=== PATIENT | male | born 1935 | race Caucasian/White ===

== ENCOUNTER 2017-04-15 11:33 | Day surgery (SDC) | payer MEDICARE ==
[2017-04-15] VITALS (9 sets, daily range): BP systolic 145–180; BP diastolic 87–116
[~2017-04-15] VITALS: Ht 175.3 cm; Wt 35.1 kg
[~2017-04-15 11:33] MED LIST: DILT240C PO; DOXY50CA6 PO; GLIP5TAB26 PO; LOVA20TA2 PO; WRF5T PO
--- OUTSIDE RECORDS SUMMARY | 2017-04-15 11:36 | XMS REPORT | Continuity of Care Document ---
Author Author [facility] Organization [facility] Address Unknown Phone Unavailable Allergies Active Description Code Type Severity Reaction Onset Reported/Identified Relationship to Patient Clinical Status Yes NKANo Known Allergies NKA Miscellaneous Allergy Unknown N/ A 06/02/2006 Medications Problems Date Dx Coded Attending Type Code Diagnosis Diagnosed By 05/13/2010 Ot 250.00 05/13/2010 Ot 272.4 05/13/2010 Ot 414.01 05/13/2010 Ot 414.10 05/13/2010 Ot 427.31 05/13/2010 Ot V58.61 05/13/2010 Ot V58.69 07/24/2014 CHRISTIAN RUIZ DO Ot 362.34 08/05/2014 CHRISTIAN RUIZ DO Ot 362.34 08/28/2014 FRITZ GARCIA USPS LETTER CARRIER Ot 272.4 08/28/2014 FRITZ GARCIA USPS LETTER CARRIER Ot 414.00 08/28/2014 FRITZ GARCIA USPS LETTER CARRIER Ot 427.32 06/24/2015 DANIELA BUCKNER FACC, SURYA FACP CCDS Ot E11.9 06/24/2015 DANIELA BUCKNER FACC, SURYA FACP CCDS Ot E78.5 06/24/2015 DANIELA BUCKNER FACC, SURYA FACP CCDS Ot I25.10 06/24/2015 DANIELA BUCKNER FACC, ALI FACP CCDS Ot I48.92 06/24/2015 DANIELA BUCKNER FACC, ALI FACP CCDS Ot I65.29 06/24/2015 DANIELA BUCKNER FACC, ALI FACP CCDS Ot R42 06/24/2015 DANIELA BUCKNER FACC, ALI FACP CCDS Ot Z79.01 07/01/2015 DANIELA BUCKNER FACC, ALI FACP CCDS Ot E11.9 07/01/2015 DANIELA BUCKNER FACC, ALI FACP CCDS Ot E78.5 07/01/2015 DANIELA BUCKNER FACC, SURYA FACP CCDS Ot I25.10 07/01/2015 DANIELA MD FACC, ALI FACP CCDS Ot I48.92 07/01/2015 DANIELA BUCKNER FACC, ALI FACP CCDS Ot I65.29 07/01/2015 DANIELA BUCKNER FACC, ALI FACP CCDS Ot R42 07/01/2015 DANIELA BUCKNER FACC, ALI FACP CCDS Ot Z79.01 08/26/2015 CHRISTIAN RUIZ DO Ot 362.34 08/26/2015 FRITZ GARCIA USPS LETTER CARRIER Ot 272.4 08/26/2015 FRITZ GARCIA USPS LETTER CARRIER Ot 414.00 08/26/2015 FRITZ GARCIA USPS LETTER CARRIER Ot 427.32 08/26/2015 DANIELA BUCKNER FACC, ALI FACP CCDS Ot E11.9 08/26/2015 DANIELA BUCKNER FACC, ALI FACP CCDS Ot E78.5 08/26/2015 DANIELA BUCKNER FACC, ALI FACP CCDS Ot I25.10 08/26/2015 DANIELA REDDYC, ALI FACP CCDS Ot I48.92 08/26/2015 DANIELA REDDYC, ALI FACP CCDS Ot I65.29 08/26/2015 DANIELA REDDYC, ALI FACP CCDS Ot R42 08/26/2015 DANIELA REDDYC, ALI FACP CCDS Ot Z79.01 08/26/2015 Ot 397.0 08/26/2015 Ot 414.10 08/26/2015 Ot 424.0 08/26/2015 Ot 427.32 08/26/2015 CHRISTIAN RUIZ DO Ot 362.34 08/26/2015 FRITZ GARCIA USPS LETTER CARRIER Ot 272.4 08/26/2015 FRITZ GARCIA USPS LETTER CARRIER Ot 414.00 08/26/2015 FRITZ GARCIA USPS LETTER CARRIER Ot 427.32 08/26/2015 DANIELA BUCKNER FACC, ALI FACP CCDS Ot E11.9 08/26/2015 DANIELA BUCKNER FACC, ALI FACP CCDS Ot E78.5 08/26/2015 DANIELA BUCKNER FACC, ALI FACP CCDS Ot I25.10 08/26/2015 DANIELA BUCKNER FACC, ALI FACP CCDS Ot I48.92 08/26/2015 DANIELA BUCKNER FACC, ALI FACP CCDS Ot I65.29 08/26/2015 SURYA SUAREZ MD, FACC, FACP CCDS Ot R42 08/26/2015 SURYA SUAREZ MD, FACC, FACP CCDS Ot Z79.01 09/18/2015 CHRISTIAN RUIZ DO Ot R31.0 09/25/2015 CHRISTIAN RUIZ DO Ot R31.0 Procedures Results Encounters ACCT No. Visit Date/Time Discharge Status Pt. Type Provider Facility Loc./Unit Complaint [id number] 08/26/2015 15:01:00 2014 23:59:59 CLS Outpatient CHRISTIAN RUIZ DO [facility] RAD [id number] 06/03/2015 10:24:00 2014 23:59:59 CLS Outpatient SURYA SUAREZ MD, FACC, FACP CCDS [facility] CARD [id number] 07/29/2014 08:27:00 2013 23:59:59 CLS Outpatient FRITZ GARCIA [facility] CARD [id number] 06/26/2014 15:10:00 2013 23:59:59 CLS Outpatient CHRISTIAN RUIZ DO [facility] RAD [id number] 05/12/2010 10:58:00 Document Registration [id number] 04/27/2010 10:16:00 Document Registration
--- OUTSIDE RECORDS SUMMARY | 2017-04-15 11:36 | XMS REPORT | Clinical Summary ---
Author Author [facility] Organization [facility] Address Unknown Phone Unavailable Care Team Providers Care Parcel Wrapper Name Role Phone PCP Unavailable Source Comments Some departments are not documenting in the electronic medical record. If you do not see the information that you expected, contact Release of Information in the Health Information Management department at [phone] for further assistance in locating additional records.[facility] Allergies No Known Allergies Current Medications Prescription Sig. Disp. Refills Start End Date Status Date glipiZIDE (GLUCOTROL) 5 Take 5 mg by mouth daily. Active mg tabletIndications: Atrial flutter, unspecified, Hyperlipidemia, Coronary artery disease involving [place] coronary artery of [place] heart without angina pectoris warfarin (JANTOVEN) 5 mg Take 2.5 mg by mouth. Active tabletIndications: Atrial Take 5 mg tablet on flutter, unspecified, Mon,Wend, & Fri; then Hyperlipidemia, Coronary take 2.5mg tablet on artery disease involving Tues, Thru, Sat, and Sun. [place] coronary artery of [place] heart without angina pectoris lovastatin(+) (MEVACOR) Take 20 mg by mouth Active 20 mg tabletIndications: daily. Atrial flutter, unspecified, Hyperlipidemia, Coronary artery disease involving [place] coronary artery of [place] heart without angina pectoris cholecalciferol (VITAMIN Take 1,000 Units by mouth Active D-3) 1,000 units twice daily. tabletIndications: Atrial flutter, unspecified, Hyperlipidemia, Coronary artery disease involving [place] coronary artery of [place] heart without angina pectoris DOCOSAHEXANOIC ACID/EPA Take 1,200 mg by mouth Active (FISH OIL PO)Indications: twice daily. Atrial flutter, unspecified, Hyperlipidemia, Coronary artery disease involving [place] coronary artery of [place] heart without angina pectoris BIOTIN PO Take 5,000 mcg by mouth Active daily. DOXYCYCLINE CALCIUM PO Take 25 mg by mouth Active daily. lisinopril (PRINIVIL; Take 1 Tab by mouth 90 Tab 3 09/29/19 Active ZESTRIL) 10 mg tablet daily. 17 metoprolol XL (TOPROL XL) Take 0.5 Tabs by mouth 30 Tab 3 11/09/19 Active 25 mg extended release daily. 17 tabletIndications: Hyperlipidemia, unspecified hyperlipidemia type, Coronary artery disease involving [place] coronary artery of [place] heart without angina pectoris, Paroxysmal atrial flutter (HCC), Nonischemic cardiomyopathy (HCC) Active Problems Problem Noted Date Paroxysmal a-fib ([facility]) 07/15/2015 CAD (coronary artery disease), mild non-obstructive 07/07/2015 Overview: 02/06/15: LHC: Abnormal heart cath with markedly abnormal LV with severe global hypokinesis. EF 10%. Mild proximal severe cardiomyopathy is considered nonischemic. 30% stenosis in the proximal right coronary artery. Type II diabetes mellitus ([facility]) 07/07/2015 Hyperlipidemia 07/07/2015 Nonischemic cardiomyopathy (HCC) 07/07/2015 Bilateral carotid artery disease ([facility]) 07/07/2015 Overview: 05/20/15: Carotid duplex: Mild Resolved Problems Problem Noted Date Resolved Date Atrial flutter (HCC) 07/14/2015 07/15/2015 Paroxysmal atrial flutter (HCC) 07/07/2015 07/15/2015 Overview: 06/03/15: Holter: Atrial flutter on holter average HR 99, range 69-125. 04/27/10: Echo: LA size 3.9cm. Normal LV function. EF 55-60%. PA pressure 50mmHg. Mild MR and TR. Dizziness 07/07/2015 07/14/2015 Social History Tobacco Use Types Packs/Day Years Used Date Never Assessed Sex Assigned at Date Recorded Not on file Last Filed Vital Signs Vital Sign Reading Time Taken Blood Pressure 136/72 09/27/2016 1:01 PM MOLDING MACHINE SETTER Pulse 56 09/27/2016 12:45 PM MOLDING MACHINE SETTER Temperature 36.6 C (97.8 F) 07/15/2015 12:45 PM MOLDING MACHINE SETTER Respiratory Rate - - Oxygen Saturation 98% 07/15/2015 12:45 PM MOLDING MACHINE SETTER Inhaled Oxygen - - Concentration Weight 74.4 kg (164 lb) 09/27/2016 12:45 PM MOLDING MACHINE SETTER Height 175.3 cm (5' 9") 09/27/2016 12:45 PM MOLDING MACHINE SETTER Body Mass Index 24.22 09/27/2016 12:45 PM MOLDING MACHINE SETTER Plan of Treatment Health Maintenance Due Date Last Done Comments PHYSICAL (COMPREHENSIVE) 1942 EXAM PERTUSSIS VACCINE 1946 TETANUS VACCINE 1952 DILATED EYE EXAM 1953 FOOT EXAM 1953 HBA1C 1953 MICROALBUMIN 1953 SHINGLES VACCINE 1995 PREVNAR/PNEUMOVAX (#1) 2000 INFLUENZA VACCINE 04/29/2017 Results Not on filefrom Last 3 Months
[2017-04-15] MEDS ORDERED: HEParin (CATH LAB) 1,000 ML IV ONE (11:41)
[2017-04-15] MEDS ORDERED: NS IV 1000 ML 1,000 ML IV ONE (11:44)
[2017-04-15] MEDS ORDERED: BACITRACIN INJECTION 50,000 UNIT, SODIUM CHLORIDE 0.9% IRRIGATIO 500 ML IR ONE ×2 (11:45)
[2017-04-15 12:09] LABS: MEAN PLATELET VOLUME 8.5 FL (7.4-10.4); RED BLOOD COUNT 5.11 10^6/uL (4.35-5.85); RED CELL DISTRIBUTION WIDTH 13.7 % (10.0-14.5); WHITE BLOOD COUNT 6.3 10^3/uL (4.3-11.0)
[2017-04-15 12:18] LABS: INR 1.4 (0.8-1.4); PROTHROMBIN TIME PATIENT 17.4 SEC (12.2-14.7)
[2017-04-15 12:29] LABS: ALANINE AMINOTRANSFERASE 19 U/L (0-55); ALBUMIN 4.2 GM/DL (3.2-4.5); ANION GAP 10 MMOL/L (5-14); ASPARTATE AMINO TRANSFERASE 22 U/L (5-34); BLOOD UREA NITROGEN 14 MG/DL (7-18); BUN/CREATININE RATIO 16; CALCIUM 9.3 MG/DL (8.5-10.1); CARBON DIOXIDE 23 MMOL/L (21-32); CHLORIDE 107 MMOL/L (98-107); CHOLESTEROL 165 MG/DL (< 200); CREATININE SERUM 0.87 MG/DL (0.60-1.30); DIRECT LDL 94 MG/DL (1-129); GFR ESTIMATED > 60; GLUCOSE 96 MG/DL (70-105); POTASSIUM 4.2 MMOL/L (3.6-5.0); SODIUM 140 MMOL/L (135-145); TOTAL PROTEIN 7.2 GM/DL (6.4-8.2); TRIGLYCERIDES 85 MG/DL (<150); VLDL CHOLESTEROL 17 MG/DL (5-40)
[2017-04-15] MEDS ORDERED: METO-270 PO (12:45)
[2017-04-15] MEDS ORDERED: BIOT5000 PO (12:45)
[2017-04-15] MEDS ORDERED: WARF5TAB8 PO ×2 (12:45)
[2017-04-15] MEDS ORDERED: ASPI-983 PO (12:45)
[2017-04-15] MEDS ORDERED: CYAN10006 PO (12:45)
[2017-04-15] MEDS ORDERED: LISI10TA2 PO (12:45)
[2017-04-15] MEDS ORDERED: OMEG-109 PO (12:46)
[2017-04-15] MEDS ORDERED: CHOL10007 PO (12:47)
[2017-04-15] MEDS ORDERED: fentaNYL INJECTION 100 MCG/2 ML AMP ONE (12:51)
[2017-04-15] MEDS ORDERED: diphenhydrAMINE 50 MG/ML INJ (BENADRYL) ONE (12:51)
[2017-04-15] MEDS ORDERED: MIDAZOLAM 5 MG/5 ML (VERSED) VIAL ONE (12:51)
[2017-04-15] MEDS ORDERED: ceFAZolin 1,000 MG (ANCEF) VIAL ONE (13:10)
[2017-04-15] MEDS ORDERED: NEO/POLY/BAC (NEOSPORIN) OINT 15 GM TUBE ONE (14:38)
[2017-04-15] MEDS ORDERED: NS IV 1000 ML 1,000 ML IV SCH (15:03)
--- NOTE | 2017-04-15 15:03 | Cardiac Procedure Note-CS/ASA ---
Pre-Procedure Note Pre-Op Procedure Note H&P Reviewed The H&P was reviewed, patient examined and no changes noted. Date H&P Reviewed: Apr 15, 2017 Time H&P Reviewed: 13:30 Conscious Sedation Pre-Proced Time Reviewed: 13:30 ASA Class: 3 Airway Mallampati Classification: ([place] ira appropriate class) I. II. III, IV Lungs Heart ASA score ASA 1: a normal healthy patient ASA 2: a patient with a mild systemic disease (mid diabetes, controlled hypertension, obesity ASA 3: a patient with a severe systemic disease that limits activity (angina , COPD, prior Myocardial infarction) ASA 4: a patient with an incapacitating disease that is a constant threat to life (CHF, renal failure) ASA 5: a moribund patient not expected to survive 24 hrs. (ruptured aneurysm) ASA 6: a declared brain patient whose organs are being harvested. For emergent operations, add the letter E after the classification Grade 2 Sedation Plan: Analgesia, Amnesia, Plan communicated to team members, Discussed options with patient/fam, Discussed risks with patient/fam Note The patient is an appropriate candidate to undergo the planned procedure, sedation, and anesthesia. The patient immediately re-assessed prior to indication. SURYA SUAREZ MD FACP FAC CCDS Apr 15, 2017 15:03
[2017-04-15] MEDS ORDERED: ACETAMINOPHEN 325 MG TABLET/CAPLET (TYLENOL) PO PRN (15:15)
[2017-04-15] MEDS ORDERED: PATIENT MAY USE OWN MEDS, ALL PO SCH (15:15)
--- NOTE | 2017-04-15 18:01 | Diagnostic Imaging Report ---
INDICATION: Chest pain. EXAMINATION: PA and lateral chest. FINDINGS: Patient has a left subclavian dual chamber pacemaker with leads projecting over the right atrium and right ventricle. Lungs are clear. There are no effusions or pneumothoraces. Heart size and pulmonary vascularity are normal. IMPRESSION: No acute abnormalities in the chest. Dictated by: Dictated on workstation # [id number]
[2017-04-15] MEDS: VITAMIN D3 1,000 UNITS (CHOLECALCIFEROL) TABLET PO SCH (20:42)
[2017-04-15] MEDS ORDERED: SIMvastatin 10 MG (ZOCOR) TAB PO SCH (21:00)
[2017-04-15] MEDS ORDERED: NON-FORMULARY MEDICATION 1 EA EA (Lovastatin (Lovastatin 20 Mg) 20 MG) PO SCH (21:00)
[2017-04-15] MEDS ORDERED: NON-FORMULARY MEDICATION 1 EA EA (Cholecalciferol (Vitamin D3) (Vitamin D3) 1,000 UNIT) PO SCH (21:00)
[2017-04-15] MEDS: ceFAZolin INJECTION 1,000 MG in NS (IVPB) 50 ML IV SCH (22:29)
[2017-04-16] VITALS (10 sets, daily range): BP systolic 124–162; BP diastolic 76–99
--- NOTE | 2017-04-16 03:09 | OPERATIVE REPORT ---
DATE OF SERVICE: 04/15/2017 PREOPERATIVE DIAGNOSIS: 1. Symptomatic bradycardia. 2. Episodes of ventricular asystole of up to 5.2 seconds during awake hours. POSTOPERATIVE DIAGNOSIS: 1. Symptomatic bradycardia. 2. Episodes of ventricular asystole of up to 5.2 seconds during awake hours. PROCEDURE: Dual chamber pacemaker implantation. ESTIMATED BLOOD LOSS: Approximately 25 mL. The patient is an 81-year-old man with symptoms of near syncope who was demonstrated to have pauses of up to 5.2 seconds on ambulatory cardiac monitoring. Pacemaker implantation was carried out today after having obtained an informed consent. He was brought to the cardiac catheterization laboratory in a fasting state. The left prepectoral area was prepared and draped in the usual sterile fashion. Lidocaine 1% was used for local anesthesia. Modified Seldinger technique was used to advance 2 guidewires into the left subclavian veins with the tips of the wires advanced to the right atrium. Subsequently, sharp and blunt dissection was used to make a pacemaker pocket and pretty good hemostasis was assured. The pocket was packed with gauze soaked in an antibiotic solution. We then used the wires advance the sheaths and sheaths were advanced leads after the guidewires were removed. After the leads had been put in place, the sheaths were removed and the sheaths were sutured to the prepectoral fascia using 0 Ethibond. All lead manipulations were carried out under fluoroscopy. The right ventricular lead is attached at the right ventricular outflow tract/high septum. This was confirmed on [place] views. Good sensing and catheter thresholds were obtained. The R-wave was measured at 8.9 mV with a pacing impedance of 760 ohms and a catheter threshold of 0.6 volts at 0.4 msec. The tip of the right atrial lead is at the right atrial appendage. The P-waves are sensed at 5 mV. Pacing impedance is 507 ohms. Capture threshold is 0.6 volts at 0.4 msec. Both leads are active fixation leads. The right atrial lead is Biotronik model 317723 with serial #[id number]. The right ventricular lead is a Biotronik model 828364 with serial #[id number]. The device is Biotronik model 805701 with serial #[id number]. The pacemaker pocket was thoroughly irrigated with an antibiotic solution after the antibiotic soaked gauze had been removed. We then injected 10 mL of D-Stat Flowable in the pocket to further achieve hemostasis. The lead and the pacemaker were placed in the pocket and the pocket was closed in 2 layers using 3.0 Vicryl. He tolerated the procedure well. Job ID: [id number] DocumentID: [id number] Dictated Date: 04/15/2017 14:55:08 Clinical Engineering Director Date: 04/16/2017 00:01:29 Dictated By: SURYA SUAREZ MD, MA, FACP, FACC, MTDD
[2017-04-16 04:29] LABS: MEAN PLATELET VOLUME 8.6 FL (7.4-10.4); RED BLOOD COUNT 4.75 10^6/uL (4.35-5.85); RED CELL DISTRIBUTION WIDTH 13.6 % (10.0-14.5); WHITE BLOOD COUNT 8.6 10^3/uL (4.3-11.0)
[2017-04-16 05:02] LABS: ALANINE AMINOTRANSFERASE 14 U/L (0-55); ALBUMIN 3.6 GM/DL (3.2-4.5); ANION GAP 8 MMOL/L (5-14); ASPARTATE AMINO TRANSFERASE 19 U/L (5-34); BILIRUBIN,TOTAL 0.9 MG/DL (0.1-1.0); BLOOD UREA NITROGEN 15 MG/DL (7-18); BUN/CREATININE RATIO 17; CALCIUM 8.7 MG/DL (8.5-10.1); CARBON DIOXIDE 25 MMOL/L (21-32); CHLORIDE 104 MMOL/L (98-107); CREATININE SERUM 0.89 MG/DL (0.60-1.30); GFR ESTIMATED > 60; GLUCOSE 133 MG/DL (70-105); POTASSIUM 4.3 MMOL/L (3.6-5.0); SODIUM 137 MMOL/L (135-145); TOTAL PROTEIN 6.2 GM/DL (6.4-8.2)
[2017-04-16] MEDS: ceFAZolin INJECTION 1,000 MG in NS (IVPB) 50 ML IV SCH (05:43)
[2017-04-16] MEDS ORDERED: glipiZIDE XL 5 MG (GLUCOTROL XL) TAB PO SCH (07:00)
[2017-04-16] MEDS: VITAMIN D3 1,000 UNITS (CHOLECALCIFEROL) TABLET PO SCH (08:29)
[2017-04-16] MEDS ORDERED: CYANOCOBALAMIN 500 MCG TAB (VITAMIN B-12) PO SCH (09:00)
[2017-04-16] MEDS ORDERED: NON-FORMULARY MEDICATION 1 EA EA (Cyanocobalamin (Vitamin B-12) (Vitamin B-12) 1,000 MCG) PO SCH (09:00)
[2017-04-16] MEDS ORDERED: lisINopril 10 MG (PRINIVIL) TAB PO SCH (09:00)
[2017-04-16] MEDS ORDERED: NON-FORMULARY MEDICATION 1 EA EA (Biotin 5,000 MCG) PO SCH (09:00)
--- NOTE | 2017-04-16 12:57 | Progress Note-Cardiology ---
Cardiology SOAP Progress Note Subjective: No cp or palp or syncope or shortness of breath. Wishes to go home Objective: I&O/Vital Signs Vital Sign - Last 12Hours 04/16/17 04/16/17 04/16/17 04/16/17 01:00 01:00 02:00 03:00 Pulse 65 63 66 64 Resp 19 19 9 B/P (MAP) 161/95 143/91 162/95 Pulse Ox 97 96 97 O2 Delivery Room Air Room Air Room Air 04/16/17 04/16/17 04/16/17 04/16/17 04:00 07:00 08:00 11:35 Pulse 80 Pulse Ox 97 95 95 O2 Delivery Room Air Room Air Room Air Weight (Pounds): 77 Weight (Ounces): 5.0 Weight (Calculated Kilograms): 35.757611 Device Insertion Site: without hematoma Bruising: moderated bruising Constitutional: AAO x 3, well-developed, well-nourished Respiratory: No accessory muscle use, other (good bilateral air entry, no rales or wheezes) Cardiovascular: regular rate-rhythm, S1 and S2, systolic murmur (faint STIVEN at cardiac base) Gastrointestional: No tender, soft, No guarding, No rebound, audible bowel sounds Extremities: No clubbing, No cyanosis, No significant edema Neurologic/Psychiatric: grossly intact, power is 5/5 both on sides Skin: No rash on exposed areas, No ulcerations on exposed areas Results/Procedures: Labs Laboratory Tests 04/15/17 16:33: Glucometer 78 04/16/17 03:38: White Blood Count 8.6, Red Blood Count 4.75, Hemoglobin 15.8, Hematocrit 45, Mean Corpuscular Volume 95, Mean Corpuscular Hemoglobin 33, Mean Corpuscular Hemoglobin Concent 35, Red Cell Distribution Width 13.6, Platelet Count 129L, Mean Platelet Volume 8.6, Sodium Level 137, Potassium Level 4.3, Chloride Level 104, Carbon Dioxide Level 25, Anion Gap 8, Blood Urea Nitrogen 15, Creatinine 0.89, Estimat Glomerular Filtration Rate > 60, BUN/Creatinine Ratio 17, Glucose Level 133H, Calcium Level 8.7, Total Bilirubin 0.9, Aspartate Amino Transf (AST/ SGOT) 19, Alanine Aminotransferase (ALT/SGPT) 14, Alkaline Phosphatase 47, Total Protein 6.2L, Albumin 3.6 Laboratory Tests 04/15/17 11:59 04/16/17 03:38 A/P: Assessment: S/p dual chamber permanent (MRI compatible) pacemaker implantation on 04/15/17 for symptomatic sinus node dysfunction, functioning normally on interrogation or 04/16/17 Symptomatic sinus node dysfunction. Amb card monitoring of 03/23-04/06/17 shows PSVT/PAF and also episodes of vent asystolic pauses of up to 5.2 seconds. The longest pause occurred when he was awake Angiographically mild coronary artery disease on cardiac catheterization of April 2010. History of paroxysmal atrial flutter for which he has undergone successful ablation with Dr Nicole in Jun 2015 Chronic anticoagulation for stroke prophylaxis being followed by Dr. Hughes. Hyperlipidemia, being treated with lovastatin and being followed by Dr. Hughes. Maturity onset diabetes mellitus. Mild bilateral carotid arterial disease per carotid ultrasound of 05/20/15 Plan: * I spoke with him and his in detail and provided postop instructions and answered questions * Have advised outpatient f/u * Resume previous home meds * Oral antibiotics x 4 days SURYA SUAREZ MD FACP FAC CCDS Apr 16, 2017 12:57
[2017-04-16] MEDS ORDERED: CEFU250T80 PO (13:01)
--- NOTE | 2017-04-16 13:03 | Discharge Inst-Cardiology ---
Discharge Inst-Cardiac Discharge Medications New Medications: Cefuroxime Axetil (Cefuroxime) 250 Mg Tablet 250 MG PO BID, #8 TAB Continued Medications: Aspirin (Aspirin EC) 81 Mg Tablet.dr 81 MG PO DAILY, TAB Biotin (Biotin) 5,000 Mcg Tab.rapdis 5000 MCG PO DAILY, TAB Cholecalciferol (Vitamin D3) (Vitamin D3) 1,000 Unit Capsule 1000 UNIT PO BID, CAP Cyanocobalamin (Vitamin B-12) (Vitamin B-12) 1,000 Mcg Tablet 1000 MCG PO DAILY, TAB Glipizide (Glipizide Xl) 5 Mg Tab.osm.24 5 MG PO DAILY Lisinopril (Lisinopril) 10 Mg Tablet 10 MG PO DAILY, TAB Lovastatin (Lovastatin 20 Mg) 20 Mg Tablet 20 MG PO HS Metoprolol Succinate (Metoprolol Succinate) 25 Mg Tab.er.24h 12.5 MG PO DAILY, TAB TAKES 1/2 OF A (25 MG) TABLET [place]-3 Fatty Acids/Fish Oil (Fish Oil 1,200 mg Softgel) 1 Each Capsule 1200 MG PO BID, CAP Warfarin Sodium (Jantoven) 5 Mg Tablet 5 MG PO MoFr@HS, TAB Warfarin Sodium (Jantoven) 5 Mg Tablet 2.5 MG PO SuTuWeThSa@HS, TAB TAKES 1/2 OF A (5 MG) TABLET Patient Instructions Patient Instructions: Resume aspirin and warfarin tomorrow (hold today) Resume other meds today F/u with Dr Woodard on 04/18/17 Do not lift L arm above head or push/pull with it for 3 weeks SURYA WOODARD MD [facility] CCDS Apr 16, 2017 13:03
[2017-04-16] MEDS ORDERED: CEFDINIR 300 MG (OMNICEF) CAP PO NR (13:48)
[2017-04-16] MEDS ORDERED: PRD20T PO (18:06)
[2017-04-16] MEDS ORDERED: HYDR-3812 PO (18:06)
== END 2017-04-16 14:15 | disposition home or self-care (01) ==
LOC: CATH 11:33 → ICU 15:27 → CATH 04-16 14:15
PROVIDERS: ATTEND Nurse Practitioner Family
DX: R00.1 Bradycardia, unspecified (principal); I46.9 Cardiac arrest, cause unspecified; R55 Syncope and collapse; E78.5 Hyperlipidemia, unspecified; E11.9 Type 2 diabetes mellitus without complications; Z79.01 Long term (current) use of anticoagulants; Z79.899 Other long term (current) drug therapy
CPT/HCPCS: 33208; 36415; 71020; 80053; 80061; 82962; 85027; 85610; 85730; 87081; 93005

== ENCOUNTER 2017-04-16 15:46 | Emergency (ER) | payer MEDICARE ==
[~2017-04-16] VITALS: Ht 175.3 cm; Wt 71.2 kg
[~2017-04-16 15:46] MED LIST changes: +ASPI-983 PO; +BIOT5000 PO; +CEFU250T80 PO; +CHOL10007 PO; +CYAN10006 PO; +LISI10TA2 PO; +METO-270 PO; +OMEG-109 PO; +WARF5TAB8 PO
--- NOTE | 2017-04-16 17:07 | Diagnostic Imaging Report ---
INDICATION: Right knee pain. COMPARISON: None. EXAMINATION: Three views of the right knee were obtained. FINDINGS: Moderate to severe degenerative joint disease. A small suprapatellar joint effusion is identified. There is no fracture, dislocation or osseous lesion. IMPRESSION: Moderate to severe tricompartment degenerative joint disease. Dictated by: Dictated on workstation # [id number]
--- NOTE | 2017-04-16 17:48 | ED Lower Extremity ---
General Chief Complaint: Lower Extremity Stated Complaint: R KNEE PAIN Nursing Triage Note: Stated he was walking down stairs and felt knee go side ways, limping. mod swelling anterior to knee Nursing Sepsis Screen: No Definite Risk Source: patient Exam Limitations: no limitations History of Present Illness Time seen by provider: 17:48 Allergies and Home Medications Allergies Coded Allergies: Jhonny Known Allergies (Verified Allergy, Unknown, 04/16/17) Home Medications Aspirin 81 Mg Tablet.dr, 81 MG PO DAILY, (Reported) Biotin 5,000 Mcg Tab.rapdis, 5,000 MCG PO DAILY, (Reported) Cefuroxime Axetil 250 Mg Tablet, 250 MG PO BID, #8 Prescribed by: SURYA SUAREZ on 04/16/17 1301 Cholecalciferol (Vitamin D3) 1,000 Unit Capsule, 1,000 UNIT PO BID, (Reported) Cyanocobalamin (Vitamin B-12) 1,000 Mcg Tablet, 1,000 MCG PO DAILY, (Reported) Glipizide 5 Mg Tab.osm.24, 5 MG PO DAILY, (Reported) Lisinopril 10 Mg Tablet, 10 MG PO DAILY, (Reported) Lovastatin 20 Mg Tablet, 20 MG PO HS, (Reported) Metoprolol Succinate 25 Mg Tab.er.24h, 12.5 MG PO DAILY, (Reported) TAKES 1/2 OF A (25 MG) TABLET [place]-3 Fatty Acids/Fish Oil 1 Each Capsule, 1,200 MG PO BID, (Reported) Warfarin Sodium 5 Mg Tablet, 5 MG PO MoFr@HS, (Reported) Warfarin Sodium 5 Mg Tablet, 2.5 MG PO SuTuWeThSa@HS, (Reported) TAKES 1/2 OF A (5 MG) TABLET Past Azahpdj-Zzjgby-Odwyyi Hx Patient Social History Alcohol Use: Denies Use Recreational Drug Use: No Smoking Status: Former Smoker Type Used: Cigarettes Recent Foreign Travel: No Contact w/Someone Who Travel: No Recent Infectious Disease Expo: No Immunizations Up To Date Tetanus Booster (TDap): Unknown Date of Pneumonia Vaccine: Jun 11, 2015 Surgeries HX Surgeries: No Respiratory Hx Respiratory Disorders: No Cardiovascular Hx Cardiac Disorders: Yes Genitourinary Hx Genitourinary Disorders: No Gastrointestinal Hx Gastrointestinal Disorders: No Physical Exam Vital Signs Vital Sign - Last 12Hours 04/16/17 16:35 Pulse 81 Resp 18 B/P (MAP) 107/71 Pulse Ox 95 Capillary Refill : Less Than 3 Seconds Progress/Results/Core Measures Results/Orders My Orders Orders - NEHEMIAH TIMMONS Rx-Hydrocodone/Apap 5-325 Mg (Rx-Vicodin (04/16/17 18:15) Prednisone Tablet (Deltasone Tablet) (04/16/17 18:15) Vital Signs/I&O Vital Sign - Last 12Hours 04/16/17 16:35 Pulse 81 Resp 18 B/P (MAP) 107/71 Pulse Ox 95 Blood Pressure Mean: 83 Departure Impression Impression: Primary Impression: Left knee sprain Additional Impressions: Knee effusion, left Degenerative joint disease Disposition: HOME, SELF-CARE Condition: Improved Departure-Patient Inst. Decision time for Depature: 18:04 Referrals: CHRISTIAN RUIZ DO (PCP/Family) Primary Care Physician SAMUEL JORGE MD Patient Instructions: Knee Sprain (DC) Add. Discharge Instructions: All discharge instructions reviewed with patient and/or family. Voiced understanding. Medications as instructed. Continue usual home medications. Elevate the right knee on pillows. Ice pack for 20 minute intervals as needed for pain. Avoid bending and climbing for 3-5 days, then increase activity as tolerated. Follow-up with your family practitioner for recheck as an outpatient if no improvement in symptoms in 7-10 days. Return to the emergency department immediately for worsened pain, swelling, numbness, weakness, chest pain, shortness of air, chest pain, or any other concerns. Scripts Hydrocodone/Acetaminophen (Hydrocodon -Acetaminophen 5-325) 1 Each Tablet 1 EACH PO Q4H Y for PAIN, #20 TAB 0 Refills Prov: NEHEMIAH TIMMONS 04/16/17 Prednisone (Prednisone) 20 Mg Tab 20 MG PO BID, #8 TAB 0 Refills Prov: NEHEMIAH TIMMONS 04/16/17 NEHEMIAH TIMMONS Apr 16, 2017 17:48
[2017-04-16] MEDS ORDERED: HYDR-3812 PO (18:06)
[2017-04-16] MEDS ORDERED: PRD20T PO (18:06)
[2017-04-16] MEDS ORDERED: predniSONE 20 MG TAB PO ONE (18:15)
[2017-04-16] MEDS ORDERED: RX-HYDROCODONE/APAP 5/325 MG #4 TAB PK PO PRN (18:15)
[2017-04-16 18:30] VITALS: BP 159/87
== END 2017-04-16 18:30 | disposition home or self-care (01) ==
LOC: EDUNIT# 15:46 → ER 15:48
DX: S83.92XA Sprain of unspecified site of left knee, initial encounter (principal); M19.90 Unspecified osteoarthritis, unspecified site; Z87.891 Personal history of nicotine dependence; Z79.82 Long term (current) use of aspirin; Z79.01 Long term (current) use of anticoagulants; Z79.84 Long term (current) use of oral hypoglycemic drugs; X58.XXXA Exposure to other specified factors, initial encounter
CPT/HCPCS: 73562; 99283

== ENCOUNTER → 2017-09-20 | Outpatient (CLI) | payer MEDICARE ==
[~2017-09-20] MED LIST changes: +ACHD5005 PO; -METO-270 PO; +METO-387 PO; +PRD20T PO
--- NOTE | 2017-09-20 09:28 | Diagnostic Imaging Report ---
Clinical indication: Patient with trouble remembering for a couple of months. Exam: Axial CT scan of the brain performed without IV contrast. Comparison: MRI of the brain performed without contrast dated 06/26/2014. Findings: There is no evidence of acute cerebral infarct, intracranial hemorrhage, or gross mass effect. Again seen focal and mildly confluent areas of low-attenuation white matter changes in both cerebral hemispheres, likely representing chronic small vessel ischemic disease. There is diffuse brain parenchymal volume loss seen, with the frontal lobes and temporal lobes mildly affected the most, which has slightly progressed compared to the prior study. There is normal wilson-white matter distinction. There is no significant midline shift or herniation. There is no evidence of hydrocephalus. The basal cisterns are unremarkable. The skull, extracranial soft tissue, and orbits are unremarkable. The paranasal sinuses are unremarkable. Impression: 1: There is no evidence of acute intracranial process. 2: Slight progression of brain parenchymal volume loss with age related brain parenchymal changes. Dictated by: Dictated on workstation # [id number]
== END ==
LOC: RAD 08:40
PROVIDERS: ATTEND Internal Medicine
DX: G93.89 Other specified disorders of brain (principal); E03.9 Hypothyroidism, unspecified
CPT/HCPCS: 70450

== ENCOUNTER 2018-01-29 16:24 | Emergency (ER) | payer MEDICARE ==
[~2018-01-29] VITALS: Ht 170.2 cm; Wt 70.3 kg
--- NOTE | 2018-01-29 16:57 | ED Integumentary General ---
General Chief Complaint: Bite-Animal/Human/Insect Stated Complaint: BITE L ARM Source: patient, family Exam Limitations: no limitations History of Present Illness Date Seen by Provider: Jan 29, 2018 Time Seen by Provider: 16:52 Initial Comments The patient is an 82-year-old white male who presents with what he believes to be an insect bite to the left dorsal forearm. He reported that this was quite itchy. His applied some calamine lotion which helped somewhat. They are both concerned about the possibility of infection. Timing/Duration: yesterday Location: extremities Possible Cause: insect bite Associated Symptoms: denies symptoms Allergies and Home Medications Allergies Coded Allergies: NKANo Known Allergies (Verified Allergy, Unknown, 04/16/17) Home Medications Aspirin 81 Mg Tablet.dr, 81 MG PO DAILY, (Reported) Biotin 5,000 Mcg Tab.rapdis, 5,000 MCG PO DAILY, (Reported) Cefuroxime Axetil 250 Mg Tablet, 250 MG PO BID Prescribed by: SURYA SUAREZ on 04/16/17 1301 Cholecalciferol (Vitamin D3) 1,000 Unit Capsule, 1,000 UNIT PO BID, (Reported) Cyanocobalamin (Vitamin B-12) 1,000 Mcg Tablet, 1,000 MCG PO DAILY, (Reported) Glipizide 5 Mg Tab.osm.24, 5 MG PO DAILY, (Reported) Hydrocodone Bit/Acetaminophen 1 Each Tablet, 1 EACH PO Q4H PRN for PAIN Prescribed by: NEHEMIAH TIMMONS on 04/16/171805 Lisinopril 10 Mg Tablet, 10 MG PO DAILY, (Reported) Lovastatin 20 Mg Tablet, 20 MG PO HS, (Reported) Metoprolol Succinate 25 Mg Tab.er.24h, 12.5 MG PO DAILY, (Reported) TAKES 1/2 OF A (25 MG) TABLET [place]-3 Fatty Acids/Fish Oil 1 Each Capsule, 1,200 MG PO BID, (Reported) Prednisone 20 Mg Tab, 20 MG PO BID Prescribed by: NEHEMIAH TIMMONS on 04/16/171805 Warfarin Sodium 5 Mg Tablet, 5 MG PO MoFr@HS, (Reported) Warfarin Sodium 5 Mg Tablet, 2.5 MG PO SuTuWeThSa@HS, (Reported) TAKES 1/2 OF A (5 MG) TABLET Patient Home Medication List Home Medication List Reviewed: Yes Constitutional: see HPI EENTM: no symptoms reported Respiratory: no symptoms reported Cardiovascular: no symptoms reported Gastrointestinal: no symptoms reported Genitourinary: no symptoms reported Musculoskeletal: no symptoms reported Skin: see HPI Psychiatric/Neurological: No Symptoms Reported Endocrine: No Symptoms Reported Past Ctdazop-Rwhmzx-Kwladc Hx Patient Social History Type Used: Cigarettes Former Smoker, Quit: Apr 15, 1987 Recent Foreign Travel: No Contact w/Someone Who Travel: No Immunizations Up To Date Tetanus Booster (TDap): Unknown Date of Pneumonia Vaccine: Jun 11, 2015 Family Medical History No Pertinent Family Hx Physical Exam Vital Signs Capillary Refill : General Appearance: no apparent distress HEENT: normal ENT inspection Neck: full range of motion Cardiovascular: normal peripheral pulses, regular rate, rhythm, no edema, no gallop, no JVD, no murmur Respiratory: chest non-tender, lungs clear, normal breath sounds, no respiratory distress, no accessory muscle use Gastrointestinal: normal bowel sounds, non tender, soft, no organomegaly, no pulsatile mass Back: normal inspection, no CVA tenderness, no vertebral tenderness Extremities: normal range of motion, non-tender, normal inspection, no pedal edema, no calf tenderness, normal capillary refill, pelvis stable 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 This is irregular in shape and slightly raised at the border. It is without any proximal streaking. Departure Impression Primary Impression: insect bite Disposition: 01 HOME, SELF-CARE Condition: Stable/Unchanged Departure-Patient Inst. Decision time for Depature: 16:55 Referrals: CHRISTIAN RUIZ DO (PCP/Family) Primary Care Physician Patient Instructions: Insect Bites and Stings (DC) Add. Discharge Instructions: All discharge instructions reviewed with patient and/or family. Voiced understanding. Acquire Cortizone 10 [id number] at a pharmacy. Place a small amount on the area 3 times daily. GRAHAM SANTIAGO MD Jan 29, 2018 16:56
[2018-01-29 17:13] VITALS: BP 152/88
== END 2018-01-29 17:13 | disposition home or self-care (01) ==
LOC: EDUNIT# 16:24 → ER 16:25
DX: S50.862A Insect bite (nonvenomous) of left forearm, initial encounter (principal); Z79.82 Long term (current) use of aspirin; Z79.84 Long term (current) use of oral hypoglycemic drugs; Z79.51 Long term (current) use of inhaled steroids; Z79.01 Long term (current) use of anticoagulants; Z87.891 Personal history of nicotine dependence; W57.XXXA Bitten or stung by nonvenomous insect and other nonvenomous arthropods, initial encounter
CPT/HCPCS: 99283

== ENCOUNTER → 2020-07-22 | Outpatient (CLI) | payer MEDICARE ==
[~2020-07-22] VITALS: Ht 175 cm; Wt 77.0 kg
[~2020-07-22] MED LIST changes: +ASPI-1238 PO; -ASPI-983 PO; +CATHETER FLUSH 10 ML SYR IV PRN; +CYAN-41 PO; -CYAN10006 PO; -METO-387 PO; +MTP25TSR PO; +REGADENOSON 0.4 MG/5 ML SYR (LEXISCAN) IV ONE; -WARF5TAB8 PO
[2020-07-22 09:24] VITALS: BP 153/93
[2020-07-22 09:29] VITALS: BP 106/61
[2020-07-22 09:31] VITALS: BP 115/65
--- NOTE | 2020-07-22 12:14 | STRESS TEST ---
DATE OF SERVICE: 07/22/2020 RESTING AND POST REGADENOSON TECHNETIUM-99M TETROFOSMIN SPECT CT IMAGING ORDERING PHYSICIAN: Divya Sandoval APRN PRIMARY PHYSICIAN: Dr. Hughes. CLINICAL DIAGNOSES: Coronary artery disease. Baseline images were carried out after injection of 10.01 mCi of technetium-99m Tetrofosmin. This was followed by 0.4 mg of regadenoson and 27.9 mCi of technetium-99m Tetrofosmin for stress imaging. The electrocardiogram showed sinus or ectopic atrial rhythm and premature atrial and ventricular contractions. The electrocardiogram did not change significantly with the regadenoson infusion. The patient tolerated the procedure well. Review of images at rest and following stress does not indicate any significant perfusion defects consistent with myocardial ischemia or infarction. Gated images show normal global left ventricular systolic function with normal regional wall motion. Left ventricular ejection fraction is calculated to be 64%. CONCLUSIONS: 1. No evidence of significant myocardial ischemia or infarction on this study. 2. Normal regional wall motion. 3. Normal global left ventricular systolic function with a calculated ejection fraction of 64%. Job ID: [id number] DocumentID: [id number] Dictated Date: 07/22/2020 12:01:43 [employer] Super[employer] Date: 07/22/2020 12:12:58 Dictated By: SURYA SUAREZ MD, MA, FACP, FACC,
== END ==
LOC: CARD 07:30
PROVIDERS: ATTEND Nurse Practitioner Family
DX: I25.10 Atherosclerotic heart disease of native coronary artery without angina pectoris (principal)
CPT/HCPCS: 78452; 93017; A9502

== ENCOUNTER → 2020-07-23 | Outpatient (CLI) | payer MEDICARE ==
[~2020-07-23] MED LIST changes: -CATHETER FLUSH 10 ML SYR IV PRN; -REGADENOSON 0.4 MG/5 ML SYR (LEXISCAN) IV ONE
== END ==
LOC: CARD 12:54
PROVIDERS: ATTEND Nurse Practitioner Family
DX: I48.91 Unspecified atrial fibrillation (principal); I25.10 Atherosclerotic heart disease of native coronary artery without angina pectoris
CPT/HCPCS: 93306

== ENCOUNTER 2020-08-30 10:38 | Emergency (ER) | payer MEDICARE ==
[~2020-08-30] VITALS: Ht 175 cm; Wt 78.4 kg
--- NOTE | 2020-08-30 10:58 | NUR ---
PT CONT TO REST IN ROOM NO CO PT NPO FOR POSSIBLE HEART CATH
--- NOTE | 2020-08-30 11:29 | Diagnostic Imaging Report ---
Indication: Left shoulder pain. Time of exam: 11:18 AM 3 views left shoulder were obtained. Glenohumeral and acromioclavicular alignment are normal. Glenohumeral space is normal. No fracture dislocation is identified. Impression: No acute bony abnormality is detected. Dictated by: Dictated on workstation # [id number]
--- NOTE | 2020-08-30 11:39 | ED Upper Extremity ---
General Chief Complaint: Upper Extremity Stated Complaint: L SHOULDER CYST Nursing Triage Note: pt presents to ed [facility] from home accompanied by with complaints of l shoulder pain starting last night. unknown if he had a recent injury Nursing Sepsis Screen: No Definite Risk Source: patient Exam Limitations: other (dementia) History of Present Illness Date Seen by Provider: Aug 30, 2020 Time Seen by Provider: 11:15 Initial Comments Patient is an 85-year-old male with a history of dementia presents to the ER with his with a chief complaint of left shoulder pain. His thought that the "cyst" that he has on his posterior shoulder was the source of the pa tient's discomfort however on physical examination the patient manifests tenderness and pain with palpation of the shoulder joint itself. Patient's is uncertain if he has had a fall. She does not recall 1 however. He does not seem to have any other complaints of illness or injury. He is again pleasantly demented. Limited range of motion of the left shoulder especially with abduction. Review of systems obtained from the and negative except as stated. Onset: yesterday Severity: moderate Pain/Injury Location: left shoulder Method of Injury: unknown Allergies and Home Medications Allergies Coded Allergies: NKANo Known Allergies (Verified Allergy, Unknown, 04/16/17) Home Medications Aspirin 81 Mg Tablet.dr, 81 MG PO DAILY, (Reported) Biotin 5,000 Mcg Tab.rapdis, 5,000 MCG PO DAILY, (Reported) Cefuroxime Axetil 250 Mg Tablet, 250 MG PO BID Prescribed by: SURYA SUAREZ on 04/16/17 1301 Cholecalciferol (Vitamin D3) 1,000 Unit Capsule, 1,000 UNIT PO BID, (Reported) Cyanocobalamin (Vitamin B-12) 1,000 Mcg Tablet, 1,000 MCG PO DAILY, (Reported) Glipizide 5 Mg Tab.osm.24, 5 MG PO DAILY, (Reported) Hydrocodone Bit/Acetaminophen 1 Each Tablet, 1 EACH PO Q4H PRN for PAIN Prescribed by: NEHEMIAH TIMMONS on 04/16/17 180 Lisinopril 10 Mg Tablet, 10 MG PO DAILY, (Reported) Lovastatin 20 Mg Tablet, 20 MG PO HS, (Reported) Metoprolol Succinate 25 Mg Tab.er.24h, 12.5 MG PO DAILY, (Reported) TAKES 1/2 OF A (25 MG) TABLET [place]-3 Fatty Acids/Fish Oil 1 Each Capsule, 1,200 MG PO BID, (Reported) Prednisone 20 Mg Tab, 20 MG PO BID Prescribed by: NEHEMIAH TIMMONS on 04/16/171805 Warfarin Sodium 5 Mg Tablet, 5 MG PO MoFr@HS, (Reported) Warfarin Sodium 5 Mg Tablet, 2.5 MG PO SuTuWeThSa@HS, (Reported) TAKES 1/2 OF A (5 MG) TABLET Patient Home Medication List Home Medication List Reviewed: Yes Review of Systems Constitutional: see HPI Respiratory: no symptoms reported Cardiovascular: no symptoms reported Musculoskeletal: joint pain (Left shoulder) All Other Systems Reviewed Negative Unless Noted: Yes Past Cttvvjt-Cohuby-Sasxrs Hx Patient Social History Alcohol Use: Denies Use Recreational Drug Use: No Smoking Status: Former Smoker Type Used: Cigarettes Former Smoker, Quit: Apr 15, 1987 Recent Foreign Travel: No Contact w/Someone Who Travel: No Recent Infectious Disease Expo: No Recent Hopitalizations: No Physical Abuse: No Sexual Abuse: No Mistreated: No Fear: No Immunizations Up To Date Tetanus Booster (TDap): Unknown Date of Pneumonia Vaccine: Jun 11, 2015 Seasonal Allergies Seasonal Allergies: No Past Medical History Surgeries: No (cardiac ablation) Pacemaker Respiratory: No Cardiac: Yes Coronary Artery Disease, Hypertension, Irregular Heartbeat Neurological: Yes Dementia Genitourinary: No Gastrointestinal: No Musculoskeletal: No Endocrine: Yes Diabetes, Non-Insulin dep Cancer: No Psychosocial: No Family Medical History No Pertinent Family Hx Physical Exam Vital Signs Vital Signs - First Documented 08/30/20 10:59 Temp 36.2 Pulse 173 Resp 18 B/P (MAP) 153/96 (115) Pulse Ox 96 Capillary Refill : Less Than 3 Seconds Height, Weight, BMI Height: 5'7.00" Weight: 155lbs. 5.0oz. 70.356500zs; 25.00 BMI Method:Stated General Appearance: WD/WN, no apparent distress Neck: non-tender, full range of motion Cardiovascular: regular rate, rhythm Respiratory: normal breath sounds Gastrointestinal: non tender, soft Shoulder: normal inspection, bone tenderness (Bony tenderness over the proximal humerus and AC joint. Patient grimaces with range of motion especially abduction and and external rotation. Rest of the extremity is within normal li mits, normal neurovascular function), limited ROM, pain; No swelling Elbow/Forearm: normal inspection, non-tender, no evidence of injury, normal ROM Wrist: Yes normal inspection, Yes non-tender, Yes no evidence of injury, Yes normal ROM Hand: normal inspection, non-tender, no evidence of injury, normal ROM Skin: normal color, warm/dry, other (Patient has a lipoma at the posterior shoulder that is nontender, nonerythematous) Progress/Results/Core Measures Results/Orders My Orders Orders - LIANG VALDIVIA MD Shoulder, Left, 3 Views (08/30/20 11:01) Naproxen Tablet (Naprosyn Tablet) (08/30/20 11:45) Vital Signs/I&O 08/30/20 10:59 Temp 36.2 Pulse 173 Resp 18 B/P (MAP) 153/96 (115) Pulse Ox 96 Blood Pressure Mean: 115 Diagnostic Imaging Diagonstic Imaging: Xray Plain Films/CT/US/NM/MRI: other Comments [facility], [place] NAME: DAWIT MCCLELLAN [facility] REC#: [id number] PT STATUS: REG ER : 1935 PHYSICIAN: LIANG VALDIVIA MD ADMIT DATE: 08/30/20/ER Draft Date of Exam:08/30/20 SHOULDER, LEFT, 3 VIEWS Indication: Left shoulder pain. Time of exam: 11:18 AM 3 views left shoulder were obtained. Glenohumeral and acromioclavicular alignment are normal. Glenohumeral space is normal. No fracture dislocation is identified. Impression: No acute bony abnormality is detected. Dictated on workstation # [id number] Dict: 08/30/20 1122 Trans: 08/30/20 1128 [facility] [id number] Interpreted by: ANJU ANDINO MD Departure Impression Primary Impression: Shoulder joint painful on movement Disposition: 01 HOME, SELF-CARE Condition: Stable Departure-Patient Inst. Decision time for Depature: 11:39 Referrals: CHRISTIAN RUIZ DO (PCP/Family) Primary Care Physician Patient Instructions: Shoulder Pain (DC) Add. Discharge Instructions: Alternate Heating pads and ice packs to the left shoulder. Take Alleve, 1 pills twice a day with food as needed for pain. Please call and follow up with your doctor on Tuesday. LIANG VALDIVIA MD Aug 30, 2020 11:39
[2020-08-30] MEDS: NAPROXEN 250 MG (NAPROSYN) TABLET PO ONE ×2 (11:58→12:04)
[2020-08-30 12:13] VITALS: BP 153/96
== END 2020-08-30 12:13 | disposition home or self-care (01) ==
LOC: EDUNIT# 10:38 → ER 10:40
DX: M25.512 Pain in left shoulder (principal); I10 Essential (primary) hypertension; E11.9 Type 2 diabetes mellitus without complications; Z87.891 Personal history of nicotine dependence; Z95.0 Presence of cardiac pacemaker; Z79.82 Long term (current) use of aspirin; Z79.52 Long term (current) use of systemic steroids; Z79.01 Long term (current) use of anticoagulants
CPT/HCPCS: 73030

== ENCOUNTER → 2021-01-15 | Outpatient (CLI) | payer MEDICARE ==
[~2021-01-15] MED LIST changes: -LISI10TA2 PO; +LISI10TA25 PO
--- NOTE | 2021-01-15 10:37 | Diagnostic Imaging Report ---
PROCEDURE: US right lower extremity venous. TECHNIQUE: Multiple real-time grayscale images were obtained over the right lower extremity in various projections. Additional spectral analysis and color Doppler duplex images were also obtained. INDICATION: Right lower extremity edema. There is no evidence of right lower extremity DVT. Right lower extremity deep venous system shows normal compressibility with normal response to augmentation and Valsalva. There appears to be a complex popliteal cyst measuring 4.6 x 1.1 x 2.7 cm. No internal vascularity is seen. IMPRESSION: 1. No evidence of right lower extremity DVT. 2. Complex mass in the popliteal fossa, perhaps a complex popliteal cyst. Dictated by: Dictated on workstation # [id number]
== END ==
LOC: RAD 09:25
PROVIDERS: ATTEND Internal Medicine
DX: R22.41 Localized swelling, mass and lump, right lower limb (principal); R60.0 Localized edema

== ENCOUNTER → 2021-06-26 | Outpatient (CLI) | payer MEDICARE ==
--- NOTE | 2021-06-26 18:16 | Diagnostic Imaging Report ---
INDICATION: CHRONIC COUGH. TECHNIQUE: Two view chest 1:48 PM CORRELATION STUDY: 04/15/2017 FINDINGS: Left-sided dual-chamber pacemaker is present. Heart size, mediastinum, and vasculature overall within normal limits. The central pulmonary arteries, however, are slightly prominent and can be associated with underlying pulmonary arterial hypertension. Lung hernandez hyperinflated consistent with COPD. No infiltrate. Very mild loss of fine multiple thoracic vertebral bodies throughout the thoracic spine. IMPRESSION: 1. Negative for acute abnormality of the chest. Findings consistent with COPD. Dictated by: Dictated on workstation # [id number]
== END ==
LOC: RAD 13:19
PROVIDERS: ATTEND Internal Medicine
DX: R05.3 Chronic cough (principal)
CPT/HCPCS: 71046

== ENCOUNTER 2022-05-09 12:35 | Emergency (ER) | payer MEDICARE ==
[~2022-05-09] VITALS: Ht 175 cm; Wt 73.0 kg
[2022-05-09] MEDS ORDERED: NYSTATIN CREAM (MYCOSTATIN) 30 GM TUBE TP STA (13:05)
[2022-05-09] MEDS ORDERED: NS IV 500 ML 500 ML IV ONE (13:15)
[2022-05-09 13:16] LABS: BASOPHILS # (AUTO) 0.1 10^3/uL (0.0-0.1); BASOPHILS % (AUTO) 1 % (0-10); EOSINOPHILS # (AUTO) 0.4 10^3/uL (0.0-0.3); EOSINOPHILS % (AUTO) 5 % (0-10); HEMATOCRIT 50 % (40-54); HEMOGLOBIN 16.7 g/dL (13.3-17.7); LYMPHOCYTES # (AUTO) 2.1 10^3/uL (1.0-4.0); LYMPHOCYTES % (AUTO) 28 % (12-44); MEAN CORPUSCULAR HEMOGLOBIN 31 pg (25-34); MEAN CORPUSCULAR HGB CONC 33 g/dL (32-36); MEAN CORPUSCULAR VOLUME 94 fL (80-99); MEAN PLATELET VOLUME 8.5 fL (9.0-12.2); MONOCYTES # (AUTO) 0.8 10^3/uL (0.0-1.0); MONOCYTES % (AUTO) 11 % (0-12); NEUTROPHILS % (AUTO) 55 % (42-75); PLATELET COUNT 181 10^3/uL (130-400); WHITE BLOOD COUNT 7.3 10^3/uL (4.3-11.0)
[2022-05-09 13:17] LABS: BILIRUBIN,URINE NEGATIVE (NEGATIVE); CLARITY,URINE CLEAR; COLOR,URINE YELLOW; GLUCOSE, URINE (UA) 3+ (NEGATIVE); KETONES,URINE NEGATIVE (NEGATIVE); LEUKOCYTE ESTERASE ,URINE NEGATIVE (NEGATIVE); NITRITE,URINE NEGATIVE (NEGATIVE); PROTEIN,URINE TRACE (NEGATIVE)
[2022-05-09 13:25] LABS: ALBUMIN 3.7 GM/DL (3.2-4.5); POTASSIUM 3.9 MMOL/L (3.6-5.0)
[2022-05-09 13:25] LABS: BACTERIA,URINE TRACE /HPF; HYALINE CASTS, URINE RARE /LPF; SQUAMOUS EPITHELIAL CELL,UR RARE /HPF
[2022-05-09 13:27] LABS: CALCIUM 9.2 MG/DL (8.5-10.1)
[2022-05-09 13:28] LABS: TOTAL PROTEIN 6.8 GM/DL (6.4-8.2)
[2022-05-09 13:29] LABS: INR 3.2 (0.8-1.4)
[2022-05-09 13:30] LABS: BILIRUBIN,TOTAL 0.5 MG/DL (0.1-1.0)
[2022-05-09 13:31] LABS: CREATININE SERUM 0.96 MG/DL (0.60-1.30)
--- NOTE | 2022-05-09 13:31 | ED General ---
General Chief Complaint: General Problems/Pain Stated Complaint: DEMENTIA Nursing Triage Note: PT TO [facility] WITH CC OF DEMENTIA AND NOT WANTING ANYONE TO HELP HIM AT HOME. (GEORGINA FARIA) History of Present Illness Date Seen by Provider: May 09, 2022 Time Seen by Provider: 12:43 Initial Comments 87 year old male brought from home via EMS for dementia and refusal to move from chair for the last 2 days or have his adult briefs changed. He is eating, drinking and taking his medications. Care provided by his and daughter. She called residential care centers on 05/07/22 but there were no rooms available at [facility]. reports he is cooperative at most times and transfers/ambulates with assistance. He is on Coumadin for Afib. He is oriented to person, only. Communicates with staff and . states he does not ever get combative. Timing/Duration: Getting Worse (GEORGINA FARIA) Allergies and Home Medications Allergies Coded Allergies: NOEANo Known Allergies (Verified Allergy, Unknown, 04/16/17) Patient Home Medication List Home Medication List Reviewed: Yes (GEORGINA FARIA) Aspirin (Aspirin EC) 81 Mg Tablet.dr, 81 MG PO DAILY, (Reported) Entered as Reported by: SHILPA NEVILLE on 04/15/17 1245 Donepezil HCl (Donepezil HCl) 10 Mg Tablet, 10 MG PO HS, (Reported) Entered as Reported by: MAMADOU CHAPA on 05/11/22 151 Glipizide (Glipizide) 5 Mg Tablet, 5 MG PO 1700, (Reported) Entered as Reported by: MAMADOU CHAPA on 05/11/22 151 Lisinopril (Lisinopril) 10 Mg Tablet, 10 MG PO 1700, (Reported) Entered as Reported by: MAMADOU CHAPA on 05/11/22 151 Lovastatin (Lovastatin) 20 Mg Tablet, 20 MG PO 1700, (Reported) Entered as Reported by: MAMADOU CHAPA on 05/11/22 151 Memantine HCl (Memantine HCl) 10 Mg Tablet, 10 MG PO 1700, (Reported) Entered as Reported by: MAMADOU CHAPA on 05/11/22 151 Metformin HCl (Metformin HCl) 500 Mg Tablet, 500 MG PO 1700, (Reported) Entered as Reported by: MAMADOU CHAPA on 05/11/22 1516 Metoprolol Succinate (Metoprolol Succinate) 25 Mg Tab.er.24h, 12.5 MG PO 1700, (Reported) Entered as Reported by: SHILPA NEVILLE on 04/15/17 1245 Warfarin Sodium (Jantoven) 5 Mg Tablet, 5 MG PO CHAMBERLAIN,TU,TH,SA @1700, (Reported) Entered as Reported by: SHILPA NEVILLE on 04/15/17 1245 Warfarin Sodium (Jantoven) 5 Mg Tablet, 2.5 MG PO MO,WE,FR @1700, (Reported) Entered as Reported by: SHILPA NEVILLE on 04/15/17 1245 Discontinued Medications Biotin (Biotin) 5,000 Mcg Tab.rapdis, 5,000 MCG PO DAILY, (Reported) Discontinued Reason: No Longer Taking Entered as Reported by: SHILPA NEVILLE on 04/15/17 1245 Cefuroxime Axetil (Cefuroxime) 250 Mg Tablet, 250 MG PO BID Discontinued Reason: No Longer Taking Prescribed by: SURYA SUAREZ on 04/16/17 1301 Cholecalciferol (Vitamin D3) (Vitamin D3) 1,000 Unit Capsule, 1,000 UNIT PO BID, (Reported) Discontinued Reason: No Longer Taking Entered as Reported by: SHILPA NEVILLE on 04/15/17 1247 Cyanocobalamin (Vitamin B-12) (Vitamin B-12) 1,000 Mcg Tablet, 1,000 MCG PO DAILY, (Reported) Discontinued Reason: No Longer Taking Entered as Reported by: SHILPA NEVILLE on 04/15/17 1245 Glipizide (Glipizide Xl) 5 Mg Tab.osm.24, 5 MG PO DAILY, (Reported) Discontinued Reason: No Longer Taking Entered as Reported by: CHANDLER CRUZ on 05/12/10 1626 Hydrocodone Bit/Acetaminophen (Lortab 5 Mg Tablet) 1 Each Tablet, 1 EACH PO Q4H PRN for PAIN Discontinued Reason: No Longer Taking Prescribed by: NEHEMIAH TIMMONS on 04/16/17 1806 Lisinopril (Lisinopril) 10 Mg Tablet, 10 MG PO DAILY, (Reported) Discontinued Reason: No Longer Taking Entered as Reported by: SHILPA NEVILLE on 04/15/17 1245 Lovastatin (Lovastatin 20 Mg) 20 Mg Tablet, 20 MG PO HS, (Reported) Discontinued Reason: No Longer Taking Entered as Reported by: CHANDLER CRUZ on 05/12/10 1626 Alpine-3 Fatty Acids/Fish Oil (Fish Oil 1,200 mg Softgel) 1 Each Capsule, 1,200 MG PO BID, (Reported) Discontinued Reason: No Longer Taking Entered as Reported by: SHILPA NEVILLE on 04/15/17 1246 Prednisone (Prednisone) 20 Mg Tab, 20 MG PO BID Discontinued Reason: No Longer Taking Prescribed by: NEHEMIAH TIMMONS on 04/16/17 1806 Review of Systems Review of Systems Constitutional: no symptoms reported, see HPI Genitourinary: see HPI, incontinence, other (yeast infection, using Nystatin powder) Psychiatric/Neurological: See HPI, Pre-Existing Deficit (GEORGINA FARIA) All Other Systems Reviewed Negative Unless Noted: Yes (GEORGINA FARIA) Past Nsxhadh-Keacjz-Muitye Hx Patient Social History Tobacco Use?: Yes Smoking Status: Former Smoker Substance use?: No Alcohol Use?: No (GEORGINA FARIA) Immunizations Up To Date Tetanus Booster (TDap): Unknown Third COVID19 Vaccination Date: 05/2021 (GEORGINA FARIA) Seasonal Allergies Seasonal Allergies: No (GEORGINA FARIA) Past Medical History Surgery/Hospitalization HX: DEMENTIA, A FIB, PACEMAKER, HYPERTENSION, TYPE II DIABETIC Surgeries: No (cardiac ablation) Pacemaker Respiratory: No Cardiac: Yes Coronary Artery Disease, Hypertension, Irregular Heartbeat Neurological: Yes Dementia Genitourinary: No Gastrointestinal: No Musculoskeletal: No Endocrine: Yes Diabetes, Non-Insulin dep Cancer: No Psychosocial: No (GEORGINA FARIA) Family Medical History Reviewed Nursing Family Hx (GEORGINA FARIA) No Pertinent Family Hx (GEORGINA FARIA) Physical Exam Vital Signs Vital Signs - First Documented 05/09/22 12:43 Temp 36.6 Pulse 81 Resp 18 B/P (MAP) 139/95 (110) Pulse Ox 96 O2 Delivery Room Air (JUSTIN LAYNE MD) Vital Signs Capillary Refill : (GEORGINA FARIA) Height, Weight, BMI Height: 5'7.00" Weight: 155lbs. 5.0oz. 70.916813ly; 23.00 BMI Method:Stated General Appearance: No Apparent Distress, WD/WN HEENT: PERRL/EOMI, TMs Normal, Normal ENT Inspection, Pharynx Normal Neck: Full Range of Motion, Normal Inspection, Non Tender, Supple Respiratory: Chest Non Tender, Lungs Clear, Normal Breath Sounds Cardiovascular: Regular Rate, Rhythm, No Edema, Normal Peripheral Pulses Gastrointestinal: Normal Bowel Sounds, Non Tender, Soft Genital/Rectal: Other (mild erythema to perineal area. no pressure uclers present) Extremity: Normal Capillary Refill, Normal Inspection, Normal Range of Motion, Non Tender, No Pedal Edema Neurologic/Psychiatric: Alert Skin: Normal Color, Warm/Dry (GEORGINA FARIAP) Progress/Results/Core Measures Suspected Sepsis SIRS Temperature: Pulse: 81 Respiratory Rate: 18 Laboratory Tests 05/09/22 13:10: White Blood Count 7.3 Blood Pressure 139 /95 Mean: 110 Laboratory Tests 05/09/22 13:10: Creatinine 0.96, INR Comment 3.2H, Platelet Count 181, Total Bilirubin 0.5 (GEORGINA FARIA) Results/Orders Lab Results Laboratory Tests Test 05/09/22 13:05 05/09/22 13:10 Range/Units Urine Color YELLOW Urine Clarity CLEAR Urine pH 6.0 5-9 Urine Specific [place] >=1.030 1.016-1.022 Urine Protein TRACE H NEGATIVE Urine Glucose (UA) 3+ H NEGATIVE Urine Ketones NEGATIVE NEGATIVE Urine Nitrite NEGATIVE NEGATIVE Urine Bilirubin NEGATIVE NEGATIVE Urine Urobilinogen 4.0 < = 1.0 MG/DL Urine Leukocyte Esterase NEGATIVE NEGATIVE Urine RBC (Auto) 2+ H NEGATIVE Urine RBC 2-5 H /HPF Urine WBC 2-5 /HPF Urine Squamous Epithelial Cells RARE /HPF Urine Crystals NONE /LPF Urine Bacteria TRACE /HPF Urine Casts PRESENT /LPF Urine Hyaline Casts RARE /LPF Urine Mucus SMALL H /LPF Urine Culture Indicated NO White Blood Count 7.3 4.3-11.0 10^3/uL Red Blood Count 5.34 4.30-5.52 10^6/uL Hemoglobin 16.7 13.3-17.7 g/dL Hematocrit 50 40-54 % Mean Corpuscular Volume 94 80-99 fL Mean Corpuscular Hemoglobin 31 25-34 pg Mean Corpuscular Hemoglobin Concent 33 32-36 g/dL Red Cell Distribution Width 13.4 10.0-14.5 % Platelet Count 181 130-400 10^3/uL Mean Platelet Volume 8.5 L 9.0-12.2 fL Immature Granulocyte % (Auto) 0 % Neutrophils (%) (Auto) 55 42-75 % Lymphocytes (%) (Auto) 28 12-44 % Monocytes (%) (Auto) 11 0-12 % Eosinophils (%) (Auto) 5 0-10 % Basophils (%) (Auto) 1 0-10 % Neutrophils # (Auto) 4.0 1.8-7.8 10^3/uL Lymphocytes # (Auto) 2.1 1.0-4.0 10^3/uL Monocytes # (Auto) 0.8 0.0-1.0 10^3/uL Eosinophils # (Auto) 0.4 H 0.0-0.3 10^3/uL Basophils # (Auto) 0.1 0.0-0.1 10^3/uL Immature Granulocyte # (Auto) 0.0 0.0-0.1 10^3/uL Prothrombin Time 33.0 H 12.2-14.7 SEC INR Comment 3.2 H 0.8-1.4 Activated Partial Thromboplast Time 42 H 24-35 SEC Sodium Level 139 135-145 MMOL/L Potassium Level 3.9 3.6-5.0 MMOL/L Chloride Level 103 98-107 MMOL/L Carbon Dioxide Level 25 21-32 MMOL/L Anion Gap 11 5-14 MMOL/L Blood Urea Nitrogen 12 7-18 MG/DL Creatinine 0.96 0.60-1.30 MG/DL Estimat Glomerular Filtration Rate 77 BUN/Creatinine Ratio 13 Glucose Level 189 H 70-105 MG/DL Calcium Level 9.2 8.5-10.1 MG/DL Corrected Calcium 9.4 8.5-10.1 MG/DL Total Bilirubin 0.5 0.1-1.0 MG/DL Aspartate Amino Transf (AST/SGOT) 17 5-34 U/L Alanine Aminotransferase (ALT/SGPT) 24 0-55 U/L Alkaline Phosphatase 56 40-136 U/L Total Protein 6.8 6.4-8.2 GM/DL Albumin 3.7 3.2-4.5 GM/DL (JUSTIN LAYNE MD) Vital Signs/I&O 05/09/22 05/09/22 12:43 14:48 Temp 36.6 36.6 Pulse 81 81 Resp 18 18 B/P (MAP) 139/95 (110) 139/107 Pulse Ox 96 96 O2 Delivery Room Air Room Air (JUSTIN LAYNE MD) Vital Signs/I&O Capillary Refill : (GEORGINA FARIA) Blood Pressure Mean: 110 Progress Note : Time: 12:43 Progress Note patient seen and evaluated, stool incontinence noted. Patient cleaned thoroughly. UA obtained. present at bedside. 1330 Patient has been cooperative but confused through visit. No complaints, awaiting labs. 1400 Labs all WNL, no UTI or dehydration. Discussed options with , admission vs home and referral to LTC. She would like to proceed with returning home and will call LTC facilities tomorrow. (GEORGINA FARIA) Departure Impression Primary Impression: Dementia Qualified Codes: F03.90 - Unspecified dementia without behavioral disturbance Disposition: 01 HOME, SELF-CARE Condition: Stable Departure-Patient Inst. Decision time for Depature: 14:00 (GEORGINA FARIA) Referrals: CHRISTIAN RUIZ DO (PCP/Family) Primary Care Physician Patient Instructions: Dementia (DC) Add. Discharge Instructions: Activity as tolerated. Encourage fluids. Follow-up with long-term care placement of your choice, coordinate with your primary care provider if assistance is needed. Return to the emergency department for new, urgent healthcare problems. All discharge instructions reviewed with patient and/or family. Voiced understanding. ATTENDING PHYSICIAN NOTE: I was physically present as attending physician in the emergency department during the care of this patient, but I was not directly involved in the decision making or delivery of care for this patient. (JUSTIN LAYNE MD) GEORGINA FARIA May 09, 2022 13:31 JUSTIN LAYNE MD May 12, 2022 02:02
[2022-05-09 14:48] VITALS: BP 139/107
== END 2022-05-09 14:48 | disposition home or self-care (01) ==
LOC: EDUNIT# 12:35 → ER 12:42
DX: F03.90 Unspecified dementia, unspecified severity, without behavioral disturbance, psychotic disturbance, mood disturbance, and anxiety (principal); I48.91 Unspecified atrial fibrillation; Z87.891 Personal history of nicotine dependence; Z79.01 Long term (current) use of anticoagulants
CPT/HCPCS: 36415; 80053; 81000; 85025; 85610; 85730

== ENCOUNTER 2022-05-10 17:22 | Inpatient (IN) | payer MEDICARE ==
[~2022-05-10] VITALS: Ht 175 cm; Wt 67.1 kg
[2022-05-10] MEDS ORDERED: ACETAMINOPHEN 500 MG TAB (TYLENOL) PO PRN (17:30)
[2022-05-10] MEDS ORDERED: NS IV 1000 ML 1,000 ML IV SCH (17:30)
[2022-05-10] MEDS ORDERED: ONDANSETRON 4 MG/2 ML (SDV) Z0FRAN IVP ONE ×2 (17:30→17:45)
--- NOTE | 2022-05-10 17:53 | ED General ---
General Chief Complaint: Abdominal/GI Problems Stated Complaint: FEVER Source of Information: Patient Exam Limitations: No Limitations History of Present Illness Date Seen by Provider: May 10, 2022 Time Seen by Provider: 17:39 Initial Comments This is an 87-year-old male with a history of dementia who presented to the ER via [facility] for concerns of increased weakness, confusion, fever, diarrhea. Spouse states that she has been working with primary care provider to get patient placed in a nursing facility and a referral to [facility] has been sent. States that is been increasingly difficult to get him to ambulate, does have history of gout. States that he was brought to the emergency department yesterday for diarrhea and weakness. His exam and labs were unremarkable yesterday other than slightly elevated INR at 3.2 and he was discharged home with spouse. States today he was sitting in his chair and began shaking and then vomited. He did have a fever over 101 at home, spouse called EMS to have him reevaluated today. He is incontinent of urine and stool and states that he will not allow his spouse to help change him as he has excoriation to his scrotum and this causes pain when he changes his briefs. Upon arrival he has a full brief with urine and stool. Allergies and Home Medications Allergies Coded Allergies: NOEANo Known Allergies (Verified Allergy, Unknown, 04/16/17) Patient Home Medication List Home Medication List Reviewed: Yes Aspirin (Aspirin EC) 81 Mg Tablet.dr, 81 MG PO DAILY, (Reported) Entered as Reported by: SHILPA NEVILLE on 04/15/17 1245 Biotin (Biotin) 5,000 Mcg Tab.rapdis, 5,000 MCG PO DAILY, (Reported) Entered as Reported by: SHILPA NEVILLE on 04/15/17 1245 Cefuroxime Axetil (Cefuroxime) 250 Mg Tablet, 250 MG PO BID Prescribed by: SURYA SUAREZ on 04/16/17 1301 Cholecalciferol (Vitamin D3) (Vitamin D3) 1,000 Unit Capsule, 1,000 UNIT PO BID, (Reported) Entered as Reported by: SHILPA NEVILLE on 04/15/17 1247 Cyanocobalamin (Vitamin B-12) (Vitamin B-12) 1,000 Mcg Tablet, 1,000 MCG PO DAILY, (Reported) Entered as Reported by: SHILPA NEVILLE on 04/15/17 1245 Glipizide (Glipizide Xl) 5 Mg Tab.osm.24, 5 MG PO DAILY, (Reported) Entered as Reported by: CHANDLER CRUZ on 05/12/10 162 Hydrocodone Bit/Acetaminophen (Lortab 5 Mg Tablet) 1 Each Tablet, 1 EACH PO Q4H PRN for PAIN Prescribed by: NEHEMIAH TIMMONS on 04/16/17 180 Lisinopril (Lisinopril) 10 Mg Tablet, 10 MG PO DAILY, (Reported) Entered as Reported by: SHILPA NEVILLE on 04/15/17 124 Lovastatin (Lovastatin 20 Mg) 20 Mg Tablet, 20 MG PO HS, (Reported) Entered as Reported by: CHANDLER CRUZ on 05/12/10 162 Metoprolol Succinate (Metoprolol Succinate) 25 Mg Tab.er.24h, 12.5 MG PO DAILY, (Reported) Entered as Reported by: SHILPA NEVILLE on 04/15/17 124 [place]-3 Fatty Acids/Fish Oil (Fish Oil 1,200 mg Softgel) 1 Each Capsule, 1,200 MG PO BID, (Reported) Entered as Reported by: SHILPA NEVILLE on 04/15/17 124 Prednisone (Prednisone) 20 Mg Tab, 20 MG PO BID Prescribed by: NEHEMIAH TIMMONS on 04/16/17 180 Warfarin Sodium (Jantoven) 5 Mg Tablet, 5 MG PO MoFr@HS, (Reported) Entered as Reported by: SHILPA NEVILLE on 04/15/17 124 Warfarin Sodium (Jantoven) 5 Mg Tablet, 2.5 MG PO SuTuWeThSa@HS, (Reported) Entered as Reported by: SHILPA NEVILLE on 04/15/17 1245 Review of Systems Review of Systems Constitutional: chills, fever, weakness EENTM: no symptoms reported Respiratory: cough, short of breath Cardiovascular: no symptoms reported Gastrointestinal: diarrhea, loss of appetite, nausea, vomiting Genitourinary: frequency, incontinence Musculoskeletal: gout, muscle weakness Skin: no symptoms reported Psychiatric/Neurological: Other (dementia ) Hematologic/Lymphatic: No Symptoms Reported Immunological/Allergic: no symptoms reported Past Jmxbabo-Zqsfut-Xeiuzy Hx Immunizations Up To Date Tetanus Booster (TDap): Unknown Third COVID19 Vaccination Date: 05/2021 Seasonal Allergies Seasonal Allergies: No Past Medical History Surgery/Hospitalization HX: DEMENTIA, A FIB, PACEMAKER, HYPERTENSION, TYPE II DIABETIC Surgeries: No (cardiac ablation) Pacemaker Respiratory: No Cardiac: Yes Coronary Artery Disease, Hypertension, Irregular Heartbeat Neurological: Yes Dementia Genitourinary: No Gastrointestinal: No Musculoskeletal: No Endocrine: Yes Diabetes, Non-Insulin dep Cancer: No Psychosocial: No Family Medical History No Pertinent Family Hx Physical Exam Vital Signs Vital Signs - First Documented 05/10/22 05/10/22 17:53 18:03 Temp 39.4 Pulse 113 B/P (MAP) 94/64 (74) Pulse Ox 98 O2 Delivery Nasal Cannula O2 Flow Rate 2.00 Capillary Refill : Height, Weight, BMI Height: 5'7.00" Weight: 155lbs. 5.0oz. 70.558860lf; 23.00 BMI Method:Stated General Appearance: Chronically ill, Thin HEENT: No Scleral Icterus (L), No Scleral Icterus (R); Other (dry mucous membranes ) Neck: Normal Inspection, Supple Respiratory: No Accessory Muscle Use, No Respiratory Distress, Rhonci (diffuse ), Wheezing (expiratory ), Other (increased effort ) Cardiovascular: Regular Rate, Rhythm, No Edema, No Murmur Gastrointestinal: Soft Rectal: Normal Exam; No Hemorrhoids, No Mass Extremity: Normal Inspection Neurologic/Psychiatric: Disoriented, Motor Weakness Skin: Warm/Dry Focused Exam Lactate Level 05/10/22 17:55: Lactic Acid Level 6.04*H 05/10/22 20:05: Lactic Acid Level 2.05*H Time of Focused Exam: 20:40 Respiratory: No Accessory Muscle Use, No Respiratory Distress Cardiovascular: Regular Rate, Rhythm, No Murmur Capillary Refill: Less Than 3 Seconds Skin: normal color, warm/dry Lactic Acid Level Laboratory Tests Test 05/10/22 17:55 05/10/22 20:05 Lactic Acid Level 6.04 MMOL/L (0.50-2.00) *H 2.05 MMOL/L (0.50-2.00) *H Within 3hrs of presentation: Admin fluids, Admin ABX, Blood cultures prior to A BX's, Focus exam, Lactate level Progress/Results/Core Measures Suspected Sepsis Recent Fever Within 48 Hours: Yes Infection Criteria Present: Suspected New Infection New/Unexplained Altered Menta: Yes Within 3hrs of presentation: Admin fluids, Admin ABX, Blood cultures prior to ABX's, Focus exam, Lactate level SIRS Temperature: Pulse: Respiratory Rate: Laboratory Tests 05/10/22 17:55: White Blood Count 3.5L Blood Pressure / Mean: 05/10/22 17:55: Lactic Acid Level 6.04*H 05/10/22 20:05: Lactic Acid Level 2.05*H Laboratory Tests 05/10/22 17:55: Creatinine 1.02, INR Comment 3.6H, Platelet Count 166, Total Bilirubin 0.7 Results/Orders Lab Results Laboratory Tests Test 05/10/22 17:55 05/10/22 17:57 05/10/22 18:02 05/10/22 20:05 Range/Units White Blood Count 3.5 L 4.3-11.0 10^3/uL Red Blood Count 5.13 4.30-5.52 10^6/uL Hemoglobin 16.0 13.3-17.7 g/dL Hematocrit 49 40-54 % Mean Corpuscular Volume 96 80-99 fL Mean Corpuscular Hemoglobin 31 25-34 pg Mean Corpuscular Hemoglobin Concent 33 32-36 g/dL Red Cell Distribution Width 13.7 10.0-14.5 % Platelet Count 166 130-400 10^3/uL Mean Platelet Volume 8.9 L 9.0-12.2 fL Immature Granulocyte % (Auto) 1 % Neutrophils (%) (Auto) 74 42-75 % Lymphocytes (%) (Auto) 20 12-44 % Monocytes (%) (Auto) 1 0-12 % Eosinophils (%) (Auto) 3 0-10 % Basophils (%) (Auto) 1 0-10 % Neutrophils # (Auto) 2.6 1.8-7.8 10^3/uL Lymphocytes # (Auto) 0.7 L 1.0-4.0 10^3/uL Monocytes # (Auto) 0.0 0.0-1.0 10^3/uL Eosinophils # (Auto) 0.1 0.0-0.3 10^3/uL Basophils # (Auto) 0.0 0.0-0.1 10^3/uL Immature Granulocyte # (Auto) 0.0 0.0-0.1 10^3/uL Prothrombin Time 36.6 H 12.2-14.7 SEC INR Comment 3.6 H 0.8-1.4 Activated Partial Thromboplast Time 39 H 24-35 SEC Sodium Level 140 135-145 MMOL/L Potassium Level 3.9 3.6-5.0 MMOL/L Chloride Level 101 98-107 MMOL/L Carbon Dioxide Level 23 21-32 MMOL/L Anion Gap 16 H 5-14 MMOL/L Blood Urea Nitrogen 10 7-18 MG/DL Creatinine 1.02 0.60-1.30 MG/DL Estimat Glomerular Filtration Rate 71 BUN/Creatinine Ratio 10 Glucose Level 232 H 70-105 MG/DL Lactic Acid Level 6.04 *H 2.05 *H 0.50-2.00 MMOL/L Calcium Level 9.3 8.5-10.1 MG/DL Corrected Calcium 9.5 8.5-10.1 MG/DL Total Bilirubin 0.7 0.1-1.0 MG/DL Aspartate Amino Transf (AST/SGOT) 19 5-34 U/L Alanine Aminotransferase (ALT/SGPT) 22 0-55 U/L Alkaline Phosphatase 64 40-136 U/L Troponin I < 0.028 <0.028 NG/ML Total Protein 6.8 6.4-8.2 GM/DL Albumin 3.7 3.2-4.5 GM/DL Procalcitonin 0.16 H <0.10 NG/ML Influenza Type A (RT-PCR) Not Detected Not Detecte Influenza Type B (RT-PCR) Not Detected Not Detecte SARS-CoV-2 RNA (RT-PCR) Not Detected Not Detecte Urine Color YELLOW Urine Clarity CLOUDY Urine pH 6.0 5-9 Urine Specific [place] 0.025 1.016-1.022 Urine Protein 1+ H NEGATIVE Urine Glucose (UA) 2+ H NEGATIVE Urine Ketones NEGATIVE NEGATIVE Urine Nitrite POSITIVE H NEGATIVE Urine Bilirubin NEGATIVE NEGATIVE Urine Urobilinogen 1.0 < = 1.0 MG/DL Urine Leukocyte Esterase 1+ H NEGATIVE Urine RBC (Auto) 3+ H NEGATIVE Urine RBC 5-10 H /HPF Urine WBC 5-10 H /HPF Urine Squamous Epithelial Cells NONE /HPF Urine Crystals NONE /LPF Urine Bacteria LARGE H /HPF Urine Casts NONE /LPF Urine Mucus NEGATIVE /LPF Urine Culture Indicated CULTURE PENDING My Orders Orders - BECKY CHAPMAN PRODUCT TEST ENGINEER Ondansetron Injection (Zofran Injectio (05/10/22 17:30) Cbc With Automated Diff (05/10/22 17:30) Comprehensive Metabolic Panel (05/10/22 17:30) Blood Culture (05/10/22 17:30) Sputum Culture (05/10/22 17:30) Urinalysis (05/10/22 17:30) Urine Culture (05/10/22 17:30) Protime With Inr (05/10/22 17:30) Partial Thromboplastin Time (05/10/22 17:30) Chest 1 View, Ap/Pa Only (05/10/22 17:30) Acetaminophen Tablet (Tylenol Tablet) (05/10/22 17:30) Ed Iv/Invasive Line Start (05/10/22 17:30) Troponin I [place] (05/10/22 17:30) Vital Signs Adult Sepsis Patie Q15M (05/10/22 17:30) O2 (05/10/22 17:30) Remove Rings In Anticipation O (05/10/22 17:30) Lactic Acid Analyzer (05/10/22 17:30) Ns Iv 1000 Ml (Sodium Chloride 0.9%) (05/10/22 17:30) Covid 19 Inhouse Test (05/10/22 17:32) Influenza A And B By Pcr (05/10/22 17:32) Ondansetron Injection (Zofran Injectio (05/10/22 17:45) Acetaminophen Suppository (Tylenol Suppo (05/10/22 18:00) Promethazine Injection (Phenergan Injec (05/10/22 18:08) Procalcitonin (Pct) (05/10/22 18:31) Ns Iv 1000 Ml (Sodium Chloride 0.9%) (05/10/22 18:45) Cefepime Injection (Maxipime Injection) (05/10/22 18:45) Ct Head Wo (05/10/22 18:46) Ct Abdomen/Pelvis W (05/10/22 18:55) Iohexol Injection (Omnipaque 350 Mg/Ml 1 (05/10/22 19:00) Received Contrast (Hold Metformin- Contr (05/10/22 19:00) Ns (Ivpb) (Sodium Chloride 0.9% Ivpb Bag (05/10/22 19:00) Ed Admission (Communication) (05/10/22 20:58) Medications Given in ED Current Medications Medications Dose Ordered Sig/Renny Route Start Time Stop Time Status Last Admin Dose Admin Acetaminophen 650 mg ONCE ONCE IA 05/10/22 18:00 05/10/22 18:01 DC 05/10/22 18:05 650 MG Cefepime HCl 1000 mg/Sodium Chloride 50 ml @ 100 mls/hr ONCE ONCE IV 05/10/22 18:45 05/10/22 19:14 DC 05/10/22 18:52 100 MLS/HR Iohexol 100 ml ONCE ONCE IV 05/10/22 19:00 05/10/22 19:01 DC 05/10/22 20:19 80 ML Ondansetron HCl 4 mg ONCE ONCE IVP 05/10/22 17:30 05/10/22 17:31 DC 05/10/22 17:47 4 MG Promethazine HCl 25 mg STK-MED ONCE .ROUTE 05/10/22 18:08 05/10/22 18:12 DC 05/10/22 18:10 25 MG Sodium Chloride 100 ml ONCE ONCE IV 05/10/22 19:00 05/10/22 19:01 DC 05/10/22 20:20 80 ML Vital Signs/I&O 05/10/22 05/10/22 05/10/22 17:53 18:03 18:05 Temp 39.4 39.4 Pulse 113 B/P (MAP) 94/64 (74) Pulse Ox 98 O2 Delivery Nasal Cannula O2 Flow Rate 2.00 Capillary Refill : Progress Note : Progress Note Upon arrival patient is vomiting profusely. He has underlying dementia however per spouse is more altered over the past few days. He is noted to have an elevated temperature of 101.9. he has a full brief of urine and stool. Spouse states that he is just been sitting in his chair, will not allow her to assist him with changing his briefs because of the pain in his scrotum. He is tachycardic at 113 and has SBP in 90's. Initiated sepsis work-up. Singh catheter placed for sterile specimen collection and accurate I's and O's. He was placed on 2 L via nasal cannula upon arrival as his initial oxygen saturation was 88% on room air. Recovered to 98%. He was given Zofran 8 mg IV push. Labs resulted, with WBC3.5, no elevation in differential. Has a lactic acid of 6.04, was receiving 1 L bolus, orders placed for second liter bolus as well as broad-spectrum antibiotics with cefepime 1 g. His cardiac enzymes are within normal limits, he does have urinary tract infection. On exam he did have some scattered rhonchi, chest x-ray was negative for acute pathology. His INR was slightly supratherapeutic yesterday at 3.2, he did receive his evening dose of warfarin yesterday and is noted at 3.6 today. Went ahead and placed orders for CT head without contrast as well as CT abdomen pelvis with contrast due to nausea, vomiting, marked increased lactic. His CT head without was negative for acute hemorrhage or infarct. Chronic changes. His CT abdomen pelvis negative for acute pathology, scattered diffuse diverticuli with no diverticulitis noted. His repeat lactic acid after 2 [address] is 2.04. updated Dr. Kumar regarding CT imaging, will proceed with ICU admission due to sepsis, hypotension, supratherapeutic INR. Dr. Kumar to input admission orders. Called E-ICU and reviewed case. Recommended adding Vancomycin and to continue Cefepime. Dr. Kumar updated. Discussed plan of care with patient's spouse and she is agreeable with plan. Requested family bring copies of medical DPOA. Spouse confirms that he is a full code at this time. Diagnostic Imaging Diagonstic Imaging: Xray Plain Films/CT/US/NM/MRI: chest Comments [facility] [address] [place], [place] NAME: DAWIT MCCLELLAN [facility] REC#: [id number] PT STATUS: REG ER : 1935 PHYSICIAN: BECKY CHAPMAN PRODUCT TEST ENGINEER ADMIT DATE: 05/10/22/ER Signed Date of Exam:05/10/22 CHEST 1 VIEW, AP/PA ONLY INDICATION: Sepsis. TECHNIQUE: Frontal chest obtained at 06:22 p.m. and compared to 06/26/2021. FINDINGS: There is cardiomegaly. Pacemaker is unchanged. There is no focal infiltrate or pneumothorax or pleural fluid. Pacemaker is unchanged. IMPRESSION: No acute process in the chest. Dictated by: Dictated on workstation # [id number] Dict: 05/10/221821 Trans: 05/10/221848 [facility] [id number] Interpreted by: TRENT CARTAGENA MD Electronically signed by: TRENT CARTAGENA MD 05/10/221848 Reviewed: Reviewed by Ar Diagonstic Imaging: CT Comments [facility] [address] [place] NAME: DAWIT MCCLELLAN [facility] REC#: [id number] PT STATUS: REG ER : 1935 PHYSICIAN: BECKY CHAPMAN APRN ADMIT DATE: 05/10/22/ER Draft Date of Exam:05/10/22 CT HEAD WO INDICATION: Weakness, high INR. TECHNIQUE: Multiple contiguous axial images were obtained through the brain without the use of intravenous contrast. Auto Exposure Controls were utilized during the CT exam to meet ALARA standards for radiation dose reduction. Comparison made to 09/20/2017. FINDINGS: There are fairly extensive diffuse atrophic changes. There are no extra-axial fluid collections. No intracranial hemorrhage. There is ventricular prominence secondary to volume loss. There are mild chronic changes in the deep white matter. Calvarial windows appear unremarkable. IMPRESSION: Advanced atrophic changes with some chronic ischemic changes in the deep white matter. There is ventricular prominence secondary to volume loss, which has increased compared to the prior study. There is no acute hemorrhage or acute intracranial finding. Dictated on workstation # [id number] Dict: 05/10/222020 Trans: 05/10/222024 [id number] Interpreted by: TRENT CARTAGENA MD Electronically signed by: Reviewed: Reviewed by Ar Diagonstic Imaging: CT Comments [facility] [address] [place] [place] NAME: DAWIT MCCLELLAN [facility] REC#: [id number] PT STATUS: REG ER : 1935 PHYSICIAN: BECKY CHAPMAN APRN ADMIT DATE: 05/10/22/ER Draft Date of Exam:05/10/22 CT ABDOMEN/PELVIS W INDICATION: Nausea and vomiting and fever, history of dementia. TECHNIQUE: Multiple contiguous axial images were obtained through the abdomen and pelvis after administration of intravenous contrast. Auto Exposure Controls were utilized during the CT exam to meet ALARA standards for radiation dose reduction. All CT scans use one or more of the following dose optimizing techniques: automated exposure control, MA and/or KvP adjustment based on patient size and exam type or iterative reconstruction. Comparison made to prior CT abdomen and pelvis from 08/26/2015. The visualized portions of the lung bases appear clear, with some motion artifact. There are diffuse degenerative changes in the lumbar spine with grade 2 anterolisthesis of L5 on S1. There is no pleural fluid. There is no free intraperitoneal air. The liver shows a tiny cyst in the left lobe and is otherwise normal. The gallbladder appears normal. Spleen, adrenals, and pancreas are normal. The kidneys bilaterally show no hydronephrosis or radiopaque stone. There is no retroperitoneal mass or adenopathy. There is no ascites. Visualized bowel loops are not appreciably distended. There are few uncomplicated clonic diverticuli. There is no pelvic mass or lymphadenopathy. There is a Singh catheter in the bladder and the bladder is decompressed. There is prominent stool in the rectum. IMPRESSION: No acute abnormality visualized in the abdomen or pelvis. Dictated on workstation # [id number] Dict: 05/10/222021 Trans: 05/10/222027 [facility] [id number] Interpreted by: TRENT CARTAGENA MD Electronically signed by: Reviewed: Reviewed by Ar Critical Care Note Critical Care Start Time: 17:55 Stop Time: 19:00 Progress Critical care time includes time arrival, application of oxygen, initiation of sepsis work-up and aggressive fluid management to support hypotension. Singh catheter placed for strict I&O. Was monitored closely during aggressive fluid therapy, cardiac monitoring, trending lactic, and repeated focus exam. Departure Communication (Admissions) Time/Spoke to Admitting Phy: 18:[address] Brown, recommended obtaining the head CT and CT abdomen pelvis prior to admission. Concern for acute abdomen based on elevated lactic. Will provide update after imaging has been obtained. Time/Spoke to Consulting Phy: 18:53 Dr. Kumar to cover after 7 PM, updated on case and pending imaging. We will report results of imaging to Dr. Kumar for final disposition. Impression Primary Impression: Sepsis Additional Impressions: UTI (urinary tract infection) Supratherapeutic INR Altered behavior Disposition: ADMITTED INPATIENT Condition: Improved Admissions Decision to Admit Reason: Admit from ER (General) Decision to Admit/Date: May 10, 2022 Time/Decision to Admit Time: 18:40 Departure-Patient Inst. Referrals: CHRISTIAN RUIZ DO (PCP/Family) Primary Care Physician Copy Copies To 1: CHRISTIAN RUIZ STORMY D APRN May 10, 2022 17:53
[2022-05-10 17:58] LABS: BASOPHILS % (AUTO) 1 % (0-10); EOSINOPHILS # (AUTO) 0.1 10^3/uL (0.0-0.3); EOSINOPHILS % (AUTO) 3 % (0-10); HEMATOCRIT 49 % (40-54); LYMPHOCYTES # (AUTO) 0.7 10^3/uL (1.0-4.0); LYMPHOCYTES % (AUTO) 20 % (12-44); MEAN CORPUSCULAR HEMOGLOBIN 31 pg (25-34); MEAN CORPUSCULAR HGB CONC 33 g/dL (32-36); MEAN CORPUSCULAR VOLUME 96 fL (80-99); MEAN PLATELET VOLUME 8.9 fL (9.0-12.2); MONOCYTES % (AUTO) 1 % (0-12); NEUTROPHILS # (AUTO) 2.6 10^3/uL (1.8-7.8); NEUTROPHILS % (AUTO) 74 % (42-75); PLATELET COUNT 166 10^3/uL (130-400); WHITE BLOOD COUNT 3.5 10^3/uL (4.3-11.0)
[2022-05-10] MEDS ORDERED: ACETAMINOPHEN 650 MG SUPP (TYLENOL) PR ONE (18:00)
[2022-05-10] MEDS ORDERED: PROMETHAZINE INJ 25 MG/ML (PHENERGAN) AMP ONE (18:08)
[2022-05-10 18:12] LABS: CLARITY,URINE CLOUDY; COLOR,URINE YELLOW; GLUCOSE, URINE (UA) 2+ (NEGATIVE); PROTEIN,URINE 1+ (NEGATIVE)
[2022-05-10 18:13] LABS: BACTERIA,URINE LARGE /HPF; BILIRUBIN,URINE NEGATIVE (NEGATIVE); KETONES,URINE NEGATIVE (NEGATIVE); LEUKOCYTE ESTERASE ,URINE 1+ (NEGATIVE); NITRITE,URINE POSITIVE (NEGATIVE)
[2022-05-10 18:16] LABS: ALBUMIN 3.7 GM/DL (3.2-4.5)
[2022-05-10 18:17] LABS: CHLORIDE 101 MMOL/L (98-107); INR 3.6 (0.8-1.4); POTASSIUM 3.9 MMOL/L (3.6-5.0); PROTHROMBIN TIME PATIENT 36.6 SEC (12.2-14.7); SODIUM 140 MMOL/L (135-145)
[2022-05-10 18:18] LABS: CALCIUM 9.3 MG/DL (8.5-10.1)
[2022-05-10 18:19] LABS: GLUCOSE 232 MG/DL (70-105); TOTAL PROTEIN 6.8 GM/DL (6.4-8.2)
[2022-05-10 18:20] LABS: CARBON DIOXIDE 23 MMOL/L (21-32)
[2022-05-10 18:21] LABS: BILIRUBIN,TOTAL 0.7 MG/DL (0.1-1.0)
[2022-05-10 18:22] LABS: ALKALINE PHOSPHATASE 64 U/L (40-136)
[2022-05-10 18:23] LABS: CREATININE SERUM 1.02 MG/DL (0.60-1.30); GFR ESTIMATED 71
[2022-05-10 18:24] LABS: BUN/CREATININE RATIO 10
--- NOTE | 2022-05-10 18:25 | Diagnostic Imaging Report ---
INDICATION: Sepsis. TECHNIQUE: Frontal chest obtained at 06:22 p.m. and compared to 06/26/2021. FINDINGS: There is cardiomegaly. Pacemaker is unchanged. There is no focal infiltrate or pneumothorax or pleural fluid. Pacemaker is unchanged. IMPRESSION: No acute process in the chest. Dictated by: Dictated on workstation # [id number]
[2022-05-10 18:26] LABS: ALANINE AMINOTRANSFERASE 22 U/L (0-55)
[2022-05-10] MEDS ORDERED: CEFEPIME INJECTION 1,000 MG in NS (IVPB) 50 ML IV ONE (18:45)
[2022-05-10] MEDS: NS IV 1000 ML 1,000 ML IV SCH ×2 (18:51→22:12)
[2022-05-10] MEDS ORDERED: NS 100 ML (IVPB) BAG IV ONE (19:00)
[2022-05-10] MEDS ORDERED: HOLD METFORMIN - RECEIVED CONTRAST 20 ML VIAL IV SCH (19:00)
[2022-05-10] MEDS ORDERED: IOHEXOL 350 MG/ML 100 ML (OMNIPAQUE 350) VIAL IV ONE (19:00)
--- NOTE | 2022-05-10 20:25 | Diagnostic Imaging Report ---
INDICATION: Weakness, high INR. TECHNIQUE: Multiple contiguous axial images were obtained through the brain without the use of intravenous contrast. Auto Exposure Controls were utilized during the CT exam to meet ALARA standards for radiation dose reduction. Comparison made to 09/20/2017. FINDINGS: There are fairly extensive diffuse atrophic changes. There are no extra-axial fluid collections. No intracranial hemorrhage. There is ventricular prominence secondary to volume loss. There are mild chronic changes in the deep white matter. Calvarial windows appear unremarkable. IMPRESSION: Advanced atrophic changes with some chronic ischemic changes in the deep white matter. There is ventricular prominence secondary to volume loss, which has increased compared to the prior study. There is no acute hemorrhage or acute intracranial finding. Dictated by: Dictated on workstation # [id number]
--- NOTE | 2022-05-10 20:28 | Diagnostic Imaging Report ---
INDICATION: Nausea and vomiting and fever, history of dementia. TECHNIQUE: Multiple contiguous axial images were obtained through the abdomen and pelvis after administration of intravenous contrast. Auto Exposure Controls were utilized during the CT exam to meet ALARA standards for radiation dose reduction. All CT scans use one or more of the following dose optimizing techniques: automated exposure control, MA and/or KvP adjustment based on patient size and exam type or iterative reconstruction. Comparison made to prior CT abdomen and pelvis from 08/26/2015. The visualized portions of the lung bases appear clear, with some motion artifact. There are diffuse degenerative changes in the lumbar spine with grade 2 anterolisthesis of L5 on S1. There is no pleural fluid. There is no free intraperitoneal air. The liver shows a tiny cyst in the left lobe and is otherwise normal. The gallbladder appears normal. Spleen, adrenals, and pancreas are normal. The kidneys bilaterally show no hydronephrosis or radiopaque stone. There is no retroperitoneal mass or adenopathy. There is no ascites. Visualized bowel loops are not appreciably distended. There are few uncomplicated clonic diverticuli. There is no pelvic mass or lymphadenopathy. There is a Singh catheter in the bladder and the bladder is decompressed. There is prominent stool in the rectum. IMPRESSION: No acute abnormality visualized in the abdomen or pelvis. Dictated by: Dictated on workstation # [id number]
[2022-05-10] MEDS ORDERED: diphenhydrAMINE 50 MG/ML INJ (BENADRYL) IVP PRN (21:45)
[2022-05-10] MEDS ORDERED: diphenhydrAMINE 25 MG TAB (BENADRYL) PO PRN (21:45)
[2022-05-10] MEDS ORDERED: ONDANSETRON 4 MG (ZOFRAN) ORAL DISSOLVE TAB PO PRN (21:45)
[2022-05-10] MEDS ORDERED: MILK OF MAGNESIA 400 MG/5 ML 30 ML UDC PO PRN (21:45)
[2022-05-10] MEDS ORDERED: VANCOMYCIN INJECTION 0.1 MG in NS (IVPB) 250 ML IV SCH (21:45)
[2022-05-10] MEDS ORDERED: ANTACID SUSP 30 ML UDC (MYLANTA) PO PRN (21:45)
[2022-05-10] MEDS ORDERED: LACTULOSE SYRUP 10GM/15ML (ENULOSE) 30ML UDC PO PRN (21:45)
[2022-05-10] MEDS ORDERED: BISACODYL 10 MG SUPP (DULCOLAX) PR PRN (21:45)
[2022-05-10] MEDS ORDERED: NS IV 500 ML 500 ML IV PRN (21:45)
[2022-05-10] MEDS ORDERED: ONDANSETRON 4 MG/2 ML (SDV) Z0FRAN IV PRN (21:45)
[2022-05-10] MEDS ORDERED: MELATONIN 3 MG TABLET PO PRN (21:45)
[2022-05-10] MEDS ORDERED: LORazepam 0.5 MG (ATIVAN) TABLET PO PRN (21:45)
[2022-05-10] MEDS ORDERED: ACETAMINOPHEN 325 MG TABLET PO PRN (21:45)
[2022-05-10] MEDS ORDERED: morphine INJ 4 MG/ML 1 ML (VIAL/SYRINGE) IV PRN (21:45)
[2022-05-10] MEDS ORDERED: HALOPERIDOL 5 MG/ML (HALDOL) VIAL IM PRN (21:45)
[2022-05-10] MEDS ORDERED: CALCIUM CARBONATE 500 MG (TUMS) TAB.CHEW PO PRN (21:45)
[2022-05-10] MEDS ORDERED: polyethylene glycoL POWDER 17 GM (MIRALAX) PACK PO PRN (21:45)
[2022-05-10] MEDS ORDERED: morphine IMMEDIATE RELEASE 15 MG TABLET PO PRN (21:45)
[2022-05-10] MEDS ORDERED: VANCOMYCIN 1500 MG/NS 500 ML IVPB IV ONE ×2 (22:15)
[2022-05-10 23:07] VITALS: BP 99/64
[2022-05-10] MEDS ORDERED: VANCOMYCIN 750 MG/VIAL IV ONE (23:25)
[2022-05-10] MEDS ORDERED: NS (IVPB) 250 ML ONE (23:26)
[2022-05-10] MEDS ORDERED: RT-ALBUTEROL/IPRATROPIUM 3 ML (DUONEB) VIAL INH PRN (23:30)
[2022-05-11] MEDS: CEFEPIME INJECTION 1,000 MG in NS (IVPB) 50 ML IV SCH ×4 (01:11→17:57)
[2022-05-11 04:28] LABS: BASOPHILS # (AUTO) 0.1 10^3/uL (0.0-0.1); BASOPHILS % (AUTO) 0 % (0-10); EOSINOPHILS % (AUTO) 0 % (0-10); HEMATOCRIT 43 % (40-54); HEMOGLOBIN 14.3 g/dL (13.3-17.7); LYMPHOCYTES # (AUTO) 0.6 10^3/uL (1.0-4.0); LYMPHOCYTES % (AUTO) 3 % (12-44); MEAN CORPUSCULAR HEMOGLOBIN 32 pg (25-34); MEAN CORPUSCULAR HGB CONC 33 g/dL (32-36); MEAN CORPUSCULAR VOLUME 96 fL (80-99); MEAN PLATELET VOLUME 8.8 fL (9.0-12.2); MONOCYTES # (AUTO) 1.6 10^3/uL (0.0-1.0); MONOCYTES % (AUTO) 8 % (0-12); NEUTROPHILS # (AUTO) 16.9 10^3/uL (1.8-7.8); NEUTROPHILS % (AUTO) 88 % (42-75); PLATELET COUNT 136 10^3/uL (130-400); WHITE BLOOD COUNT 19.3 10^3/uL (4.3-11.0)
[2022-05-11 04:38] LABS: POTASSIUM 3.9 MMOL/L (3.6-5.0)
[2022-05-11 04:39] LABS: PROTHROMBIN TIME PATIENT 39.3 SEC (12.2-14.7)
[2022-05-11 04:40] LABS: TOTAL PROTEIN 5.4 GM/DL (6.4-8.2)
[2022-05-11 04:42] LABS: BILIRUBIN,TOTAL 0.5 MG/DL (0.1-1.0)
[2022-05-11 04:44] LABS: CREATININE SERUM 0.96 MG/DL (0.60-1.30)
[2022-05-11 04:47] LABS: MAGNESIUM 1.5 MG/DL (1.6-2.4)
[2022-05-11 05:09] LABS: BAND NEUTROPHILS 13 %; LYMPHOCYTES % (MANUAL) 2 %; MONOCYTES % (MANUAL) 2 %; NEUTROPHILS % (MANUAL) 83 %; RBC MORPH NORMAL
[2022-05-11 05:10] LABS: TOXIC GRANULATION/VACUOLAZATIO 1+
[2022-05-11] MEDS: MAGNESIUM 1 GM/100 ML IVPB 100 ML IV SCH ×3 (05:15→06:34)
[2022-05-11] MEDS: KCL 20 MEQ TAB (K-DUR) PO SCH (05:15)
[2022-05-11] MEDS: POTASSIUM CL 10MEQ/50ML IVPB 50 ML IV SCH (05:15)
[2022-05-11] MEDS: NS IV 1000 ML 1,000 ML IV SCH ×4 (05:20→21:45)
[2022-05-11] MEDS: DOCUSATE SODIUM 100 MG (COLACE) CAP PO SCH ×2 (07:34→21:00)
[2022-05-11] MEDS: SENNOSIDES 8.6 MG (SENOKOT) TAB PO SCH ×2 (07:35→21:00)
--- NOTE | 2022-05-11 07:54 | Consultation-Cardiology ---
HPI-Cardiology Cardiology Consultation: Date of Consultation 05/11/22 Time Seen by a Provider: 08:10 Date of Admission 05-10-22 Attending Physician Yosvany Hughes DO Admitting Physician Admitting Physician: Ernestine Kumar DO Attending Physician: Nuris Brown MD Consulting Physician Alexandra Woodard MD HPI: Chief Complaint: Sepsis Mr. Mcclellan is an 87 yr old male admitted to ICU 1 from the ED d/t UTI with sepsis. He is currently in bed. Does not answer any questions. Only answers "yes" when you say his name, but provides no other information. Per chart review he has had progressive confusion over the course of the last several days. He has dementia at baseline. He lives at home with his spouse. He developed fever and chills yesterday. His spouse has been unable to help him out of his chair at home d/t his confusion and gen weakness. When he arrived to the ED his brief was soiled. He was found to have a UTI. Review of Systems-Cardiology Review of Systems Other comments Unable to obtain; see HPI [id number] Hx Immunizations Up To Date Tetanus Booster (TDap): Unknown Date of Pneumonia Vaccine: Jun 11, 2015 Past Medical History PMH As described under Assessment. Family Medical History Family Medical History: No known family h/o CAD Allergies and Home Medications Allergies Coded Allergies: NKANo Known Allergies (Verified Allergy, Unknown, 04/16/17) Patient Home Medication List Aspirin (Aspirin EC) 81 Mg Tablet.dr, 81 MG PO DAILY, (Reported) Entered as Reported by: SHILPA NEVILLE on 04/15/17 1245 Biotin (Biotin) 5,000 Mcg Tab.rapdis, 5,000 MCG PO DAILY, (Reported) Entered as Reported by: SHILPA NEVILLE on 04/15/17 1245 Cefuroxime Axetil (Cefuroxime) 250 Mg Tablet, 250 MG PO BID Prescribed by: ALEXANDRA WOODARD on 04/16/17 1301 Cholecalciferol (Vitamin D3) (Vitamin D3) 1,000 Unit Capsule, 1,000 UNIT PO BID, (Reported) Entered as Reported by: SHILPA NEVILLE on 04/15/17 1247 Cyanocobalamin (Vitamin B-12) (Vitamin B-12) 1,000 Mcg Tablet, 1,000 MCG PO DAILY, (Reported) Entered as Reported by: SHILPA NEVILLE on 04/15/17 1245 Glipizide (Glipizide Xl) 5 Mg Tab.osm.24, 5 MG PO DAILY, (Reported) Entered as Reported by: CHANDLER CRUZ on 05/12/10 162 Hydrocodone Bit/Acetaminophen (Lortab 5 Mg Tablet) 1 Each Tablet, 1 EACH PO Q4H PRN for PAIN Prescribed by: NEHEMIAH TIMMONS on 04/16/17 180 Lisinopril (Lisinopril) 10 Mg Tablet, 10 MG PO DAILY, (Reported) Entered as Reported by: SHILPA NEVILLE on 04/15/17 124 Lovastatin (Lovastatin 20 Mg) 20 Mg Tablet, 20 MG PO HS, (Reported) Entered as Reported by: CHANDLER CRUZ on 05/12/10 162 Metoprolol Succinate (Metoprolol Succinate) 25 Mg Tab.er.24h, 12.5 MG PO DAILY, (Reported) Entered as Reported by: SHILPA NEVILLE on 04/15/17 124 [place]-3 Fatty Acids/Fish Oil (Fish Oil 1,200 mg Softgel) 1 Each Capsule, 1,200 MG PO BID, (Reported) Entered as Reported by: SHILPA NEVILLE on 04/15/17 124 Prednisone (Prednisone) 20 Mg Tab, 20 MG PO BID Prescribed by: NEHEMIAH TIMMONS on 04/16/171805 Warfarin Sodium (Jantoven) 5 Mg Tablet, 5 MG PO MoFr@HS, (Reported) Entered as Reported by: SHILPA NEVILLE on 04/15/17 124 Warfarin Sodium (Jantoven) 5 Mg Tablet, 2.5 MG PO SuTuWeThSa@HS, (Reported) Entered as Reported by: SHILPA NEVILLE on 04/15/17 124 Physical Exam-Cardiology Physical Exam Vital Signs/I&O 05/11/22 05/11/22 05/11/22 05/11/22 03:55 03:56 04:00 05:00 Temp 37.3 Pulse 76 79 77 Resp B/P (MAP) 115/72 (86) 129/80 (96) 128/73 (91) Pulse Ox 89 90 92 93 O2 Delivery Nasal Cannula Nasal Cannula Nasal Cannula Nasal Cannula O2 Flow Rate 2.00 2.00 2.00 2.00 9/1305/11/22 05/11/22 05/11/22 06:00 06:22 06:51 07:00 Pulse 73 68 70 Resp 12 31 B/P (MAP) 100/61 (74) 110/62 (78) Pulse Ox 92 97 O2 Delivery Nasal Cannula Nasal Cannula Nasal Cannula O2 Flow Rate 2.00 4.00 4.00 05/11/22 05/11/22 05/11/22 05/11/22 07:37 08:00 08:00 09:00 Temp 36.6 Pulse 68 69 Resp 18 19 B/P (MAP) 96/58 (71) 118/70 (86) Pulse Ox 99 90 97 O2 Delivery Nasal Cannula Nasal Cannula Nasal Cannula O2 Flow Rate 4.00 2.00 4.00 05/11/22 05/11/22 05/11/22 05/11/22 10:00 11:00 12:00 12:00 Pulse 68 68 67 Resp 18 20 20 B/P (MAP) 113/73 (86) 114/63 (80) 108/65 (79) Pulse Ox 99 95 90 94 O2 Delivery Nasal Cannula Nasal Cannula Nasal Cannula Nasal Cannula O2 Flow Rate 4.00 4.00 2.00 4.00 05/11/22 00:00 Intake Total 1000 ml Output Total 450 ml Balance 550 ml Capillary Refill : Less Than 3 Seconds Constitutional: other (oriented to self only; answers "yes" to his name, but does not provide any other information) HEENT: hard of hearing Neck: No carotid bruit; carotid pulses are 2 + bilaterally Respiratory: No accessory muscle use, No respiratory distress; chest expansion is symmetric, chest is bilaterally symmetric, other (diminished bases with poor inspiratory effort) Cardiovascular: regular rate-rhythm; No JVD; S1 and S2, systolic murmur Gastrointestinal: No tender; soft, round, audible bowel sounds Extremities: no lower extremity edema bilateral Neurologic/Psychiatric: other (moves extremities) Skin: No rash on exposed areas, No ulcerations on exposed areas Data Review Labs Laboratory Tests 05/10/22 17:55: White Blood Count 3.5L, Red Blood Count 5.13, Hemoglobin 16.0, Hematocrit 49, Mean Corpuscular Volume 96, Mean Corpuscular Hemoglobin 31, Mean Corpuscular Hemoglobin Concent 33, Red Cell Distribution Width 13.7, Platelet Count 166, Mean Platelet Volume 8.9L, Immature Granulocyte % (Auto) 1, Neutrophils (%) (Auto) 74, Lymphocytes (%) (Auto) 20, Monocytes (%) (Auto) 1, Eosinophils (%) (Auto) 3, Basophils (%) (Auto) 1, Neutrophils # (Auto) 2.6, Lymphocytes # (Auto) 0.7L, Monocytes # (Auto) 0.0, Eosinophils # (Auto) 0.1, Basophils # (Auto) 0.0, Immature Granulocyte # (Auto) 0.0, Prothrombin Time 36.6H, INR Comment 3.6H, Activated Partial Thromboplast Time 39H, Sodium Level 140, Potassium Level 3.9, Chloride Level 101, Carbon Dioxide Level 23, Anion Gap 16H, Blood Urea Nitrogen 10, Creatinine 1.02, Estimat Glomerular Filtration Rate 71, BUN/Creatinine Ratio 10, Glucose Level 232H, Lactic Acid Level 6.04*H, Calcium Level 9.3, Corrected Calcium 9.5, Total Bilirubin 0.7, Aspartate Amino Transf (AST/SGOT) 19, Alanine Aminotransferase (ALT/SGPT) 22, Alkaline Phosphatase 64, Troponin I < 0.028, Total Protein 6.8, Albumin 3.7, Procalcitonin 0.16H 05/10/22 17:57: Influenza Type A (RT-PCR) Not Detected, Influenza Type B (RT-PCR) Not Detected, SARS-CoV-2 RNA (RT-PCR) Not Detected 05/10/22 18:02: Urine Color YELLOW, Urine Clarity CLOUDY, Urine pH 6.0, Urine Specific [place] 0.025, Urine Protein 1+H, Urine Glucose (UA) 2+H, Urine Ketones NEGATIVE, Urine Nitrite POSITIVEH, Urine Bilirubin NEGATIVE, Urine Urobilinogen 1.0, Urine Leukocyte Esterase 1+H, Urine RBC (Auto) 3+H, Urine RBC 5-10H, Urine WBC 5-10H, Urine Squamous Epithelial Cells NONE, Urine Crystals NONE, Urine Bacteria LARGEH , Urine Casts NONE, Urine Mucus NEGATIVE, Urine Culture Indicated CULTURE PENDING 05/10/22 20:05: Lactic Acid Level 2.05*H 05/10/22 22:05: Lactic Acid Level 2.27*H 05/11/22 04:06: Lactic Acid Level 1.97, White Blood Count 19.3H, Red Blood Count 4.51, Hemoglobin 14.3, Hematocrit 43, Mean Corpuscular Volume 96, Mean Corpuscular Hemoglobin 32, Mean Corpuscular Hemoglobin Concent 33, Red Cell Distribution Width 14.0, Platelet Count 136, Mean Platelet Volume 8.8L, Immature Granulocyte % (Auto) 1, Neutrophils (%) (Auto) 88H, Lymphocytes (%) (Auto) 3L, Monocytes (%) (Auto) 8, Eosinophils (%) (Auto) 0, Basophils (%) (Auto) 0, Neutrophils # (Auto) 16.9H, Lymphocytes # (Auto) 0.6L, Monocytes # (Auto) 1.6H, Eosinophils # (Auto) 0.0, Basophils # (Auto) 0.1, Immature Granulocyte # (Auto) 0.2H, Neutrophils % (Manual) 83, Lymphocytes % (Manual) 2, Monocytes % (Manual) 2, Band Neutrophils 13, Toxic Granulation 1+, Blood Morphology Comment NORMAL, Prothrombin Time 39.3H, INR Comment 4.0H, Sodium Level 140, Potassium Level 3.9, Chloride Level 106, Carbon Dioxide Level 21, Anion Gap 13, Blood Urea Nitrogen 9, Creatinine 0.96, Estimat Glomerular Filtration Rate 77, BUN/Creatinine Ratio 9, Glucose Level 207H, Calcium Level 8.0L, Corrected Calcium 8.8, Phosphorus Level 2.0L, Magnesium Level 1.5L, Total Bilirubin 0.5, Aspartate Amino Transf (AST/SGOT) 18, Alanine Aminotransferase (ALT/SGPT) 19, Alkaline Phosphatase 42, Total Protein 5.4L, Albumin 3.0L 05/11/22 10:09: Glucometer 168H 05/11/22 11:40: Blood Gas Puncture Site UNK, Blood Gas Patient Temperature 37.1, Arterial Blood pH 7.37, Arterial Blood Partial Pressure CO2 45, Arterial Blood Partial Pressure O2 87, Arterial Blood HCO3 25, Arterial Blood Total CO2 26.7, Arterial Blood Oxygen Saturation 98, Arterial Blood Base Excess 0.7, Bon Test UNK, Blood Gas Ventilator Setting NO, Blood Gas Inspired Oxygen UNK Microbiology 05/10/22 Blood Culture - Preliminary, Resulted No growth 05/10/22 Urine Culture - Preliminary, Resulted Escherichia coli Radiology NAME: DAWIT MCCLELLAN [facility] REC#: [id number] PT STATUS: REG ER : 1935 PHYSICIAN: BECKY CHAPMAN APRN ADMIT DATE: 05/10/22/ER Signed Date of Exam:05/10/22 CHEST 1 VIEW, AP/PA ONLY INDICATION: Sepsis. TECHNIQUE: Frontal chest obtained at 06:22 p.m. and compared to 06/26/2021. FINDINGS: There is cardiomegaly. Pacemaker is unchanged. There is no focal infiltrate or pneumothorax or pleural fluid. Pacemaker is unchanged. IMPRESSION: No acute process in the chest. Dictated by: Dictated on workstation # [id number] Dict: 05/10/221821 Trans: 05/10/221848 [facility] [id number] Interpreted by: TRENT CARTAGENA MD Electronically signed by: TRENT CARTAGENA MD 05/10/221848 NAME: DAWIT MCCLELLAN [facility] REC#: [id number] PT STATUS: ADM John : 1935 PHYSICIAN: BECKY CHAPMAN APRN ADMIT DATE: 05/10/22/ICU Signed Date of Exam:05/10/22 CT HEAD WO INDICATION: Weakness, high INR. TECHNIQUE: Multiple contiguous axial images were obtained through the brain without the use of intravenous contrast. Auto Exposure Controls were utilized during the CT exam to meet ALARA standards for radiation dose reduction. Comparison made to 09/20/2017. FINDINGS: There are fairly extensive diffuse atrophic changes. There are no extra-axial fluid collections. No intracranial hemorrhage. There is ventricular prominence secondary to volume loss. There are mild chronic changes in the deep white matter. Calvarial windows appear unremarkable. IMPRESSION: Advanced atrophic changes with some chronic ischemic changes in the deep white matter. There is ventricular prominence secondary to volume loss, which has increased compared to the prior study. There is no acute hemorrhage or acute intracranial finding. Dictated by: Dictated on workstation # [id number] Dict: 05/10/222020 Trans: 05/10/222145 [id number] Interpreted by: TRENT CARTAGENA MD Electronically signed by: TRENT CARTAGENA MD 05/10/222145 NAME: DAWIT MCCLELLAN [facility] REC#: [id number] PT STATUS: ADM John : 1935 PHYSICIAN: BECKY CHAPMAN APRN ADMIT DATE: 05/10/22/ICU Signed Date of Exam:05/10/22 CT ABDOMEN/PELVIS W INDICATION: Nausea and vomiting and fever, history of dementia. TECHNIQUE: Multiple contiguous axial images were obtained through the abdomen and pelvis after administration of intravenous contrast. Auto Exposure Controls were utilized during the CT exam to meet ALARA standards for radiation dose reduction. All CT scans use one or more of the following dose optimizing techniques: automated exposure control, MA and/or KvP adjustment based on patient size and exam type or iterative reconstruction. Comparison made to prior CT abdomen and pelvis from 08/26/2015. The visualized portions of the lung bases appear clear, with some motion artifact. There are diffuse degenerative changes in the lumbar spine with grade 2 anterolisthesis of L5 on S1. There is no pleural fluid. There is no free intraperitoneal air. The liver shows a tiny cyst in the left lobe and is otherwise normal. The gallbladder appears normal. Spleen, adrenals, and pancreas are normal. The kidneys bilaterally show no hydronephrosis or radiopaque stone. There is no retroperitoneal mass or adenopathy. There is no ascites. Visualized bowel loops are not appreciably distended. There are few uncomplicated clonic diverticuli. There is no pelvic mass or lymphadenopathy. There is a Singh catheter in the bladder and the bladder is decompressed. There is prominent stool in the rectum. IMPRESSION: No acute abnormality visualized in the abdomen or pelvis. Dictated by: Dictated on workstation # [id number] Dict: 05/10/222021 Trans: 05/10/[address] [facility] [id number] Interpreted by: TRENT CARTAGENA MD Electronically signed by: TRENT CARTAGENA MD 05/10/22 2146 A/P-Cardiology Assessment/Admission Diagnosis UTI with sepsis - management per medical services Chronic, mod, exertional shortness of breath - MPI of Jul 22, 2020: No evidence of significant myocardial ischemia or infarction on this study. Normal regional wall motion. Normal global left ventricular systolic function with a calculated ejection fraction of 64%. - Echocardiogram of Jul 23, 2020 showed LVEF 60-65%. PASP 25-30mmHg. Mild TR Symptomatic sinus node dysfunction. - History of paroxysmal atrial flutter for which he has undergone ablation with Dr Nicole in Jun 2015 but has since had recurrence of A fib - Chronic warfarin anticoagulation for stroke prophylaxis being followed by Dr. Hughes. - Amb card monitoring of 03/23-04/06/17 shows PSVT/PAF and also episodes of vent asystolic pauses of up to 5.2 seconds. The longest pause occurred when he was awake S/P - Biotronik dual chamber PPM implant on 04-15-17 - functioning normally per interrogation of 02/17/22 CAD - Angiographically mild coronary artery disease on cardiac catheterization of April 2010. - MPI of Jul 22, 2020: No evidence of significant myocardial ischemia or infarction on this study. Normal regional wall motion. Normal global left ventricular systolic function with a calculated ejection fraction of 64%. Hyperlipidemia, -being treated with lovastatin - being followed by Dr. Hughes. Maturity onset diabetes mellitus. - followed by PCP Carotid dz: - Mild to mod, bilateral carotid arterial disease per carotid ultrasound of February 2020 Chronic intermittent dizziness - of undetermined etiology Dementia Discussion and Recomendations UTI with sepsis and hypotension - management of sepsis per medical/eICU services Hypotension - hold antihypertensives OAC - hold d/t supra-therapeutic INR (4.0) CAD - continue ASA Monitor lab - replace electrolytes as indicated Further recs will be based on his hospital course We would like to thank medical services for this consult FRITZ GARCIA May 11, 2022 07:54
--- NOTE | 2022-05-11 08:39 | Diagnostic Imaging Report ---
INDICATION: Followup examination, sepsis, ICU care. COMPARISON: 05/10/2022. TECHNIQUE: Single radiograph of the chest dated 05/11/2022. FINDINGS: The pacer device is again identified with a battery pack overlying the left chest. The cardiac silhouette is at the upper limits of normal in size, similar to the prior examination. No significant central pulmonary vascular congestion. Senescent changes of the lungs without additional focal pulmonary opacity. No significant pleural effusion. No pneumothorax. No acute osseous abnormality. Decreased lung volumes compared to the prior examination. IMPRESSION: Decreased lung volumes; otherwise, similar examination. Dictated by: Dictated on workstation # [id number]
--- NOTE | 2022-05-11 08:39 | Physical Therapy Progress Note ---
Therapy Progress Note Patient on Hold per RN due to sedation. PT will attempt tomorrow HIRAL Braga PT May 11, 2022 08:39
[2022-05-11] MEDS ORDERED: ASPIRIN 81 MG CHEW (CHILDREN'S ASA) PO SCH (09:00)
--- NOTE | 2022-05-11 09:37 | Tele-ICU Consult ---
History of Present Illness History of Present Illness Date Seen by Provider: May 11, 2022 Time Seen by Provider: 09:37 Date of Admission (Tele-ICU Physician , consultation) Available chart/ vitals / labs / Images reviewed H&P is from ER notes Patient's information available about PMH, Shx, Fhx allergy reviewed inEMR. ROS as per chart and RN report Now in ICU, hemodynamically stable Video assessment done using teleICU camera, rest of exam as per RN Discussed with RN. Consultants: Hospital course: (05/10) 87yM Admit w/ sepsis, UTI, supratherapeutic INR, Altered behavior (profuse vomiting in ED) A/P Fever 101 / sepsis/ N/V ( neg cofis and flu 05/10 - recived IVF with normalization of lactate and BP , cx pending - CT abdomen pelvis negative for acute pathology UTI with Ecoli on cx 05/10 and bacteremia GNR 05/10 -Vancomycin and Cefepime 05/11 CAD PAF , status post balation with recirrence and PPM implant on 04-15-17 -ECHO Jul 23, 2020 showed LVEF 60-65%. PASP 25-30mmHg. 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 Discussed with RN to reach out if any questions or concerns A total of 31 minutes of critical care time was devoted to this patient today, required to treat and/or prevent further deterioration of critical care condition ( as above ) . Allergies and Home Medications Allergies Coded Allergies: NKANo Known Allergies (Verified Allergy, Unknown, 04/16/17) Home Medications Aspirin 81 Mg Tablet.dr, 81 MG PO DAILY, (Reported) Biotin 5,000 Mcg Tab.rapdis, 5,000 MCG PO DAILY, (Reported) Cefuroxime Axetil 250 Mg Tablet, 250 MG PO BID Prescribed by: SURYA SUAREZ on 04/16/17 1301 Cholecalciferol (Vitamin D3) 1,000 Unit Capsule, 1,000 UNIT PO BID, (Reported) Cyanocobalamin (Vitamin B-12) 1,000 Mcg Tablet, 1,000 MCG PO DAILY, (Reported) Glipizide 5 Mg Tab.osm.24, 5 MG PO DAILY, (Reported) Hydrocodone Bit/Acetaminophen 1 Each Tablet, 1 EACH PO Q4H PRN for PAIN Prescribed by: NEHEMIAH TIMMONS on 04/16/171805 Lisinopril 10 Mg Tablet, 10 MG PO DAILY, (Reported) Lovastatin 20 Mg Tablet, 20 MG PO HS, (Reported) Metoprolol Succinate 25 Mg Tab.er.24h, 12.5 MG PO DAILY, (Reported) TAKES 1/2 OF A (25 MG) TABLET [place]-3 Fatty Acids/Fish Oil 1 Each Capsule, 1,200 MG PO BID, (Reported) Prednisone 20 Mg Tab, 20 MG PO BID Prescribed by: NEHEMIAH TIMMONS on 04/16/171805 Warfarin Sodium 5 Mg Tablet, 5 MG PO MoFr@HS, (Reported) Warfarin Sodium 5 Mg Tablet, 2.5 MG PO SuTuWeThSa@HS, (Reported) TAKES 1/2 OF A (5 MG) TABLET Past Medical/Social/Family Hx Immunizations Up To Date Tetanus Booster (TDap): Unknown Date of Pneumonia Vaccine: Jun 11, 2015 Current Status Primary Language: Gabonese Preferred Spoken Language: Gabonese Review of Systems Constitutional: see HPI Focused Exam Lactate Level 05/10/22 20:05: Lactic Acid Level 2.05*H 05/10/22 22:05: Lactic Acid Level 2.27*H 05/11/22 04:06: Lactic Acid Level 1.97 Height, Weight, BMI Height: 5'7.00" Weight: 155lbs. 5.0oz. 70.339188gb; 23.80 BMI Method:Stated Time of Focused Exam: 20:40 Exam Exam Patient acknowledged, consented, and participated in this virtual visit which was conducted using real time audio/video Vital Signs Date Time Temp Pulse Resp B/P (MAP) Pulse Ox O2 Delivery O2 Flow Rate FiO2 05/11/22 09:00 69 19 118/70 (86) 97 Nasal Cannula 4.00 05/11/22 08:00 90 Nasal Cannula 2.00 05/11/22 08:00 68 18 96/58 (71) 99 Nasal Cannula 4.00 05/11/22 07:37 36.6 05/11/22 07:00 70 31 110/62 (78) 97 Nasal Cannula 4.00 05/11/22 06:51 68 05/11/22 06:22 Nasal Cannula 4.00 05/11/22 06:00 73 12 100/61 (74) 92 Nasal Cannula 2.00 05/11/22 05:00 77 22 128/73 (91) 93 Nasal Cannula 2.00 05/11/22 04:00 79 22 129/80 (96) 92 Nasal Cannula 2.00 05/11/22 03:56 90 Nasal Cannula 2.00 05/11/22 03:55 37.3 76 22 115/72 (86) 89 Nasal Cannula 2.00 05/11/22 03:00 83 13 115/72 (86) 92 Nasal Cannula 2.00 05/11/22 02:00 86 28 123/77 (92) 92 Nasal Cannula 2.00 05/11/22 01:00 95 05/11/22 01:00 95 21 120/65 (83) 94 Nasal Cannula 2.00 05/11/22 00:45 102 23 () 91 Nasal Cannula 2.00 05/11/22 00:13 37.2 05/11/22 00:08 37.3 05/11/22 00:00 98 23 132/74 (93) 93 Nasal Cannula 2.00 05/10/22 23:59 92 Nasal Cannula 2.00 05/10/22 23:15 100 14 119/69 (86) 91 Nasal Cannula 2.00 05/10/22 23:07 105 91 05/10/22 22:45 105 23 107/74 (85) 91 Nasal Cannula 2.00 05/10/22 22:31 89 Nasal Cannula 2.00 05/10/22 22:15 105 26 99/64 (76) 91 Nasal Cannula 2.00 05/10/22 22:00 101 30 99/59 (72) 91 Nasal Cannula 2.00 05/10/22 21:48 106 05/10/22 21:45 109 25 111/71 (84) 93 Nasal Cannula 2.00 05/10/22 21:30 37.2 112 14 130/96 (107) 94 2.00 05/10/22 18:05 39.4 05/10/22 18:03 98 Nasal Cannula 2.00 05/10/22 17:53 39.4 113 94/64 (74) I & O 05/11/22 07:00 Intake Total 2665 ml Output Total 1175 ml Balance 1490 ml Height & Weight Height: 5'7.00" Weight: 155lbs. 5.0oz. 70.832809zx; 23.80 BMI Method:Stated General Appearance: No Apparent Distress, Chronically ill, Thin HEENT: No Scleral Icterus (L), No Scleral Icterus (R); Other (dry mucous m embranes ) Neck: Normal Inspection, Supple Respiratory: No Accessory Muscle Use, No Respiratory Distress Cardiovascular: Regular Rate, Rhythm, No Murmur Capillary Refill: Less Than 3 Seconds Extremity: Normal Inspection Neurologic/Psychiatric: Disoriented, Motor Weakness Skin: Warm/Dry Results Lab Laboratory Tests 05/10/22 17:55 05/11/22 04:06 Assessment/Plan Assessment/Plan 1 JENNY GARCIA MD May 11, 2022 09:37
--- NOTE | 2022-05-11 11:02 | Occ Therapy Progress Note ---
Therapy Progress Note OT orders received and chart reviewed. Patient on Hold per RN due to sedation. OT will attempt evaluation tomorrow. JOSÉ SHANKS OT May 11, 2022 11:02
--- NOTE | 2022-05-11 13:06 | Consultation-Cardiology ---
HPI-Cardiology Cardiology Consultation: Date of Consultation 05/11/22 Time Seen by a Provider: 12:30 Date of Admission Attending Physician Yosvany Hughes DO Admitting Physician Admitting Physician: Ernestine Kumar DO Attending Physician: Nuris Brown MD Consulting Physician SURYA SUAREZ MD, FACP, FACC HPI: Chief Complaint: Sepsis Mr. Campo is an 87 yr old male admitted to ICU 1 from the ED d/t UTI with sepsis. He is currently in bed. Does not answer any questions. Per chart review he has had progressive confusion over the course of the last several days. He has dementia at baseline. He lives at home with his spouse. He developed fever and chills yesterday. His spouse has been unable to help him out of his chair at home d/t his confusion and gen weakness. When he arrived to the ED his brief was soiled. He was found to have a UTI. Review of Systems-Cardiology Review of Systems Constitutional: other (non-communicative) NLW-Qkqftl-Cjujrw Hx Immunizations Up To Date Tetanus Booster (TDap): Unknown Date of Pneumonia Vaccine: Jun 11, 2015 Past Medical History PMH As described under Assessment. Family Medical History Family Medical History: No known family h/o CAD Allergies and Home Medications Allergies Coded Allergies: NKANo Known Allergies (Verified Allergy, Unknown, 04/16/17) Patient Home Medication List Home Medication List Reviewed: Yes Aspirin (Aspirin EC) 81 Mg Tablet.dr, 81 MG PO DAILY, (Reported) Entered as Reported by: SHILPA NEVILLE on 04/15/17 1245 Biotin (Biotin) 5,000 Mcg Tab.rapdis, 5,000 MCG PO DAILY, (Reported) Entered as Reported by: SHILPA NEVILLE on 04/15/17 1245 Cefuroxime Axetil (Cefuroxime) 250 Mg Tablet, 250 MG PO BID Prescribed by: SURYA SUAREZ on 04/16/17 1301 Cholecalciferol (Vitamin D3) (Vitamin D3) 1,000 Unit Capsule, 1,000 UNIT PO BID, (Reported) Entered as Reported by: SHILPA NEVILLE on 04/15/17 1247 Cyanocobalamin (Vitamin B-12) (Vitamin B-12) 1,000 Mcg Tablet, 1,000 MCG PO DAILY, (Reported) Entered as Reported by: SHILPA NEVILLE on 04/15/17 1245 Glipizide (Glipizide Xl) 5 Mg Tab.osm.24, 5 MG PO DAILY, (Reported) Entered as Reported by: CHANDLER CRUZ on 05/12/10 1626 Hydrocodone Bit/Acetaminophen (Lortab 5 Mg Tablet) 1 Each Tablet, 1 EACH PO Q4H PRN for PAIN Prescribed by: NEHEMIAH TIMMONS on 04/16/17 180 Lisinopril (Lisinopril) 10 Mg Tablet, 10 MG PO DAILY, (Reported) Entered as Reported by: SHILPA NEVILLE on 04/15/17 124 Lovastatin (Lovastatin 20 Mg) 20 Mg Tablet, 20 MG PO HS, (Reported) Entered as Reported by: CHANDLER CRUZ on 05/12/10 162 Metoprolol Succinate (Metoprolol Succinate) 25 Mg Tab.er.24h, 12.5 MG PO DAILY, (Reported) Entered as Reported by: SHILPA NEVILLE on 04/15/17 124 [place]-3 Fatty Acids/Fish Oil (Fish Oil 1,200 mg Softgel) 1 Each Capsule, 1,200 MG PO BID, (Reported) Entered as Reported by: SHILPA NEVILLE on 04/15/17 124 Prednisone (Prednisone) 20 Mg Tab, 20 MG PO BID Prescribed by: NEHEMIAH TIMMONS on 04/16/17 180 Warfarin Sodium (Jantoven) 5 Mg Tablet, 5 MG PO MoFr@HS, (Reported) Entered as Reported by: SHILPA NEVILLE on 04/15/17 124 Warfarin Sodium (Jantoven) 5 Mg Tablet, 2.5 MG PO SuTuWeThSa@HS, (Reported) Entered as Reported by: SHILPA NEVILLE on 04/15/17 1245 Physical Exam-Cardiology Physical Exam Vital Signs/I&O 05/11/22 05/11/22 05/11/22 05/11/22 02:00 03:00 03:55 03:56 Temp 37.3 Pulse 86 83 76 Resp B/P (MAP) 123/77 (92) 115/72 (86) 115/72 (86) Pulse Ox 92 92 89 90 O2 Delivery Nasal Cannula Nasal Cannula Nasal Cannula Nasal Cannula O2 Flow Rate 2.00 2.00 2.00 2.00 05/11/22 05/11/22 05/11/22 05/11/22 04:00 05:00 06:00 06:22 Pulse 79 77 73 Resp 22 22 12 B/P (MAP) 129/80 (96) 128/73 (91) 100/61 (74) Pulse Ox 92 93 92 O2 Delivery Nasal Cannula Nasal Cannula Nasal Cannula Nasal Cannula O2 Flow Rate 2.00 2.00 2.00 4.00 05/11/22 05/11/22 05/11/22 05/11/22 06:51 07:00 07:37 08:00 Temp 36.6 Pulse 68 70 68 Resp 31 18 B/P (MAP) 110/62 (78) 96/58 (71) Pulse Ox 97 99 O2 Delivery Nasal Cannula Nasal Cannula O2 Flow Rate 4.00 4.00 05/11/22 05/11/22 05/11/22 05/11/22 08:00 09:00 10:00 11:00 Pulse 69 68 68 Resp 19 18 20 B/P (MAP) 118/70 (86) 113/73 (86) 114/63 (80) Pulse Ox 90 97 99 95 O2 Delivery Nasal Cannula Nasal Cannula Nasal Cannula Nasal Cannula O2 Flow Rate 2.00 4.00 4.00 4.00 05/11/22 12:00 Pulse 67 Resp 20 B/P (MAP) 108/65 (79) Pulse Ox 94 O2 Delivery Nasal Cannula O2 Flow Rate 4.00 05/10/22 23:59 Intake Total 1000 ml Output Total 450 ml Balance 550 ml Capillary Refill : Less Than 3 Seconds Constitutional: other (oriented to self only; answers "yes" to his name, but does not provide any other information) HEENT: hard of hearing Neck: No carotid bruit; carotid pulses are 2 + bilaterally Respiratory: No accessory muscle use, No respiratory distress; chest expansion is symmetric, chest is bilaterally symmetric, other (diminished bases with poor inspiratory effort) Cardiovascular: regular rate-rhythm; No JVD; S1 and S2, systolic murmur Gastrointestinal: No tender; soft, round, audible bowel sounds Extremities: no lower extremity edema bilateral Neurologic/Psychiatric: other (moves extremities) Skin: No rash on exposed areas, No ulcerations on exposed areas Data Review Labs Laboratory Tests 05/10/22 17:55: White Blood Count 3.5L, Red Blood Count 5.13, Hemoglobin 16.0, Hematocrit 49, Mean Corpuscular Volume 96, Mean Corpuscular Hemoglobin 31, Mean Corpuscular Hemoglobin Concent 33, Red Cell Distribution Width 13.7, Platelet Count 166, Mean Platelet Volume 8.9L, Immature Granulocyte % (Auto) 1, Neutrophils (%) (Auto) 74, Lymphocytes (%) (Auto) 20, Monocytes (%) (Auto) 1, Eosinophils (%) (Auto) 3, Basophils (%) (Auto) 1, Neutrophils # (Auto) 2.6, Lymphocytes # (Auto) 0.7L, Monocytes # (Auto) 0.0, Eosinophils # (Auto) 0.1, Basophils # (Auto) 0.0, Immature Granulocyte # (Auto) 0.0, Prothrombin Time 36.6H, INR Comment 3.6H, Activated Partial Thromboplast Time 39H, Sodium Level 140, Potassium Level 3.9, Chloride Level 101, Carbon Dioxide Level 23, Anion Gap 16H, Blood Urea Nitrogen 10, Creatinine 1.02, Estimat Glomerular Filtration Rate 71, BUN/Creatinine Ratio 10, Glucose Level 232H, Lactic Acid Level 6.04*H, Calcium Level 9.3, Corrected Calcium 9.5, Total Bilirubin 0.7, Aspartate Amino Transf (AST/SGOT) 19, Alanine Aminotransferase (ALT/SGPT) 22, Alkaline Phosphatase 64, Troponin I < 0.028, Total Protein 6.8, Albumin 3.7, Procalcitonin 0.16H 05/10/22 17:57: Influenza Type A (RT-PCR) Not Detected, Influenza Type B (RT-PCR) Not Detected, SARS-CoV-2 RNA (RT-PCR) Not Detected 05/10/22 18:02: Urine Color YELLOW, Urine Clarity CLOUDY, Urine pH 6.0, Urine Specific [place] 0.025, Urine Protein 1+H, Urine Glucose (UA) 2+H, Urine Ketones NEGATIVE, Urine Nitrite POSITIVEH, Urine Bilirubin NEGATIVE, Urine Urobilinogen 1.0, Urine Leukocyte Esterase 1+H, Urine RBC (Auto) 3+H, Urine RBC 5-10H, Urine WBC 5-10H, Urine Squamous Epithelial Cells NONE, Urine Crystals NONE, Urine Bacteria LARGEH , Urine Casts NONE, Urine Mucus NEGATIVE, Urine Culture Indicated CULTURE PENDING 05/10/22 20:05: Lactic Acid Level 2.05*H 05/10/22 22:05: Lactic Acid Level 2.27*H 05/11/22 04:06: Lactic Acid Level 1.97, White Blood Count 19.3H, Red Blood Count 4.51, Hemoglobin 14.3, Hematocrit 43, Mean Corpuscular Volume 96, Mean Corpuscular Hemoglobin 32, Mean Corpuscular Hemoglobin Concent 33, Red Cell Distribution Wid th 14.0, Platelet Count 136, Mean Platelet Volume 8.8L, Immature Granulocyte % (Auto) 1, Neutrophils (%) (Auto) 88H, Lymphocytes (%) (Auto) 3L, Monocytes (%) (Auto) 8, Eosinophils (%) (Auto) 0, Basophils (%) (Auto) 0, Neutrophils # (Auto) 16.9H, Lymphocytes # (Auto) 0.6L, Monocytes # (Auto) 1.6H, Eosinophils # (Auto) 0.0, Basophils # (Auto) 0.1, Immature Granulocyte # (Auto) 0.2H, Neutrophils % (Manual) 83, Lymphocytes % (Manual) 2, Monocytes % (Manual) 2, Band Neutrophils 13, Toxic Granulation 1+, Blood Morphology Comment NORMAL, Prothrombin Time 39.3H, INR Comment 4.0H, Sodium Level 140, Potassium Level 3.9, Chloride Level 106, Carbon Dioxide Level 21, Anion Gap 13, Blood Urea Nitrogen 9, Creatinine 0.96, Estimat Glomerular Filtration Rate 77, BUN/Creatinine Ratio 9, Glucose Level 207H, Calcium Level 8.0L, Corrected Calcium 8.8, Phosphorus Level 2.0L, Magnesium Level 1.5L, Total Bilirubin 0.5, Aspartate Amino Transf (AST/SGOT) 18, Alanine Aminotransferase (ALT/SGPT) 19, Alkaline Phosphatase 42, Total Protein 5.4L, Albumin 3.0L 05/11/22 10:09: Glucometer 168H Microbiology 05/10/22 Blood Culture - Preliminary, Resulted No growth 05/10/22 Urine Culture - Preliminary, Resulted Escherichia coli A/P-Cardiology Assessment/Admission Diagnosis UTI with sepsis - management per medical services Chronic, mod, exertional shortness of breath - MPI of Jul 22, 2020: No evidence of significant myocardial ischemia or infarction on this study. Normal regional wall motion. Normal global left ventricular systolic function with a calculated ejection fraction of 64%. - Echocardiogram of Jul 23, 2020 showed LVEF 60-65%. PASP 25-30mmHg. Mild TR Symptomatic sinus node dysfunction. - History of paroxysmal atrial flutter for which he has undergone ablation with Dr Nicole in Jun 2015 but has since had recurrence of A fib - Chronic warfarin anticoagulation for stroke prophylaxis being followed by Dr. Hughes. - Amb card monitoring of 03/23-04/06/17 shows PSVT/PAF and also episodes of vent asystolic pauses of up to 5.2 seconds. The longest pause occurred when he was awake S/P - Biotronik dual chamber PPM implant on 04-15-17 - functioning normally per interrogation of 02/17/22 CAD - Angiographically mild coronary artery disease on cardiac catheterization of April 2010. - MPI of Jul 22, 2020: No evidence of significant myocardial ischemia or infarction on this study. Normal regional wall motion. Normal global left ventricular systolic function with a calculated ejection fraction of 64%. Hyperlipidemia, -being treated with lovastatin - being followed by Dr. Hughes. Maturity onset diabetes mellitus. 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
--- NOTE | 2022-05-11 13:06 | History & Physical ---
PANDA YI 05/11/22 1306: History of Present Illness History of Present Illness Reason for visit/HPI Adin Campo is an 87yo M with a past medical history of dementia, afib, htn,T2DM, gout, and incontinence who presented to the ED on 05/10 after his observed him shaking. She states the patient has had a cough for a few days that has been worse than normal. In the ED he was found to have briefs full of stool and urine. The patient was not responsive to me this morning, although he did state his name during rounds with the attending Dr. Boss. states that pt does not comprehend verbal conversation or respond to commands at baseline due to his dementia. Date of Admission May 10, 2022 at 20:59 I consulted on this patient on 05/11/22 13:01 Attending Physician Yosvany Hughes DO Admitting Physician Admitting Physician: Ernestine Kumar DO Attending Physician: Rachel Boss MD Consult Allergies and Home Medications Allergies Coded Allergies: NKANo Known Allergies (Verified Allergy, Unknown, 04/16/17) Patient Home Medication List Home Medication List Reviewed: Yes Aspirin (Aspirin EC) 81 Mg Tablet., 81 MG PO DAILY, (Reported) Entered as Reported by: SHILPA NEVILLE on 04/15/17 1245 Last Action: Reviewed Donepezil HCl (Donepezil HCl) 10 Mg Tablet, 10 MG PO HS, (Reported) Entered as Reported by: MAMADOU CHAPA on 05/11/221515 Last Action: Reviewed Glipizide (Glipizide) 5 Mg Tablet, 5 MG PO 1700, (Reported) Entered as Reported by: MAMADOU CHAPA on 05/11/221515 Last Action: Reviewed Lisinopril (Lisinopril) 10 Mg Tablet, 10 MG PO 1700, (Reported) Entered as Reported by: MAMADOU CHAPA on 05/11/221516 Last Action: Reviewed Lovastatin (Lovastatin) 20 Mg Tablet, 20 MG PO 1700, (Reported) Entered as Reported by: MAMADOU CHAPA on 05/11/221515 Last Action: Reviewed Memantine HCl (Memantine HCl) 10 Mg Tablet, 10 MG PO 1700, (Reported) Entered as Reported by: MAMADOU CHAPA on 05/11/221515 Last Action: Reviewed Metformin HCl (Metformin HCl) 500 Mg Tablet, 500 MG PO 1700, (Reported) Entered as Reported by: MAMADOU CHAPA on 05/11/22 1516 Last Action: Reviewed Metoprolol Succinate (Metoprolol Succinate) 25 Mg Tab.er.24h, 12.5 MG PO 1700, (Reported) Entered as Reported by: SHILPA NEVILLE on 04/15/17 124 Last Action: Reviewed Warfarin Sodium (Jantoven) 5 Mg Tablet, 5 MG PO CHAMBERLAIN,TU,TH,SA @1700, (Reported) Entered as Reported by: SHILPA NEVILLE on 04/15/171244 Last Action: Reviewed Warfarin Sodium (Jantoven) 5 Mg Tablet, 2.5 MG PO MO,WE,FR @1700, (Reported) Entered as Reported by: SHILPA NEVILLE on 04/15/171244 Last Action: Reviewed Discontinued Medications Biotin (Biotin) 5,000 Mcg Tab.rapdis, 5,000 MCG PO DAILY, (Reported) Discontinued Reason: No Longer Taking Entered as Reported by: SHILPA NEVILLE on 04/15/171244 Last Action: Discontinued Cefuroxime Axetil (Cefuroxime) 250 Mg Tablet, 250 MG PO BID Discontinued Reason: No Longer Taking Prescribed by: SURYA SUAREZ on 04/16/17 1301 Last Action: Discontinued Cholecalciferol (Vitamin D3) (Vitamin D3) 1,000 Unit Capsule, 1,000 UNIT PO BID, (Reported) Discontinued Reason: No Longer Taking Entered as Reported by: SHILPA NEVILLE on 04/15/17 124 Last Action: Discontinued Cyanocobalamin (Vitamin B-12) (Vitamin B-12) 1,000 Mcg Tablet, 1,000 MCG PO DAILY, (Reported) Discontinued Reason: No Longer Taking Entered as Reported by: SHILPA NEVILLE on 04/15/171244 Last Action: Discontinued Glipizide (Glipizide Xl) 5 Mg Tab.osm.24, 5 MG PO DAILY, (Reported) Discontinued Reason: No Longer Taking Entered as Reported by: CHANDLER CRUZ on 05/12/10 1626 Last Action: Discontinued Hydrocodone Bit/Acetaminophen (Lortab 5 Mg Tablet) 1 Each Tablet, 1 EACH PO Q4H PRN for PAIN Discontinued Reason: No Longer Taking Prescribed by: NEHEMIAH TIMMONS on 8/19/17 1806 Last Action: Discontinued Lisinopril (Lisinopril) 10 Mg Tablet, 10 MG PO DAILY, (Reported) Discontinued Reason: No Longer Taking Entered as Reported by: SHILPA NEVILLE on 04/15/17 1245 Last Action: Discontinued Lovastatin (Lovastatin 20 Mg) 20 Mg Tablet, 20 MG PO HS, (Reported) Discontinued Reason: No Longer Taking Entered as Reported by: CHANDLER CRUZ on 05/12/10 1626 Last Action: Discontinued [place]ulbert-3 Fatty Acids/Fish Oil (Fish Oil 1,200 mg Softgel) 1 Each Capsule, 1,200 MG PO BID, (Reported) Discontinued Reason: No Longer Taking Entered as Reported by: SHILPA NEVILLE on 04/15/17 124 Last Action: Discontinued Prednisone (Prednisone) 20 Mg Tab, 20 MG PO BID Discontinued Reason: No Longer Taking Prescribed by: NEHEMIAH TIMMONS on 04/16/171805 Last Action: Discontinued Past Mtwwybu-Nlteca-Pzfkrd Hx Patient Social History Marrital Status: Immunizations Up To Date Tetanus Booster (TDap): Unknown Date of Pneumonia Vaccine: Jun 11, 2015 Seasonal Allergies Seasonal Allergies: No Current Status Primary Language: Kyrgyz Preferred Spoken Language: Kyrgyz Past Medical History Surgeries: Pacemaker Coronary Artery Disease, Hypertension, Irregular Heartbeat Dementia Diabetes, Non-Insulin dep Family Medical History No Pertinent Family Hx Review of Systems Constitutional: chills, fever (fever at admission of 101.9) Respiratory: cough, wheezing Cardiovascular: No chest pain, No edema Gastrointestinal: No jaundice, No nausea, No vomiting Genitourinary: No decreased output; incontinence Musculoskeletal: muscle twitching (tremor on exam. unsure if this is related to chills) Skin: No change in color, No lumps Psychiatric/Neurological: Pre-Existing Deficit (dementia), Tremors (tremor on exam. Unsure if this is related to chills) Physical Exam Vital Signs Vital Signs - First Documented 05/10/22 05/10/22 05/10/22 17:53 18:03 21:30 Temp 39.4 Pulse 113 Resp 14 B/P (MAP) 94/64 (74) Pulse Ox 98 O2 Delivery Nasal Cannula O2 Flow Rate 2.00 Capillary Refill : Less Than 3 Seconds Height, Weight, BMI Height: 5'7.00" Weight: 155lbs. 5.0oz. 70.851070pa; 23.80 BMI Method:Stated General Appearance: WD/WN, Mild Distress Neck: Non Tender, Supple; No JVD Respiratory: Chest Non Tender, No Accessory Muscle Use, Crackles (bl bases), Wheezing (slight expiratory wheeze) Cardiovascular: Regular Rate, Rhythm, No Edema, No JVD, No Murmur, Normal Peripheral Pulses Gastrointestinal: Normal Bowel Sounds, No Organomegaly, No Pulsatile Mass, Non Tender, Soft Rectal: Deferred Extremity: Normal Capillary Refill, Normal Inspection, No Pedal Edema Neurologic/Psychiatric: Aphasia, Disoriented Skin: Normal Color, Warm/Dry; No Jaundice Assessment/Plan Assessment and Plan Septic shock Fever, tachycardia, elevated WBC count, lactic acid >4. Continue IV cefepime and vancomycin. Await culture and sensitivity. Continue IV fluids. Monitor BP, most recent 108/65 UTI E coli in urine with positive nitrites, LE, WBCs, and large bacteria on UA. Continue IV abx and fluids Gram Negative Bacteremia Confirmed by blood culture, awaiting results with sensitivity. Continue IV abx and fluids Lactic acidosis Continue IV fluids. Lactic acid was 1.97 this morning Hypomagnesemia 1.5 this morning. Given Mg sulfate IV. Afib Keep HR controlled, not currently tachycardic. Elevated INR Warfarin held due to INR of 4.0. Monitor for lowering to therapeutic level. T2DM Glucose 207 as of this morning. Continue accuchecks. Consider sliding scale if persistent elevation. CAD Hold antihypertensives due to episode of hypotension last night RACHEL BOSS MD 05/11/22 1758: History of Present Illness History of Present Illness Date Seen by a Provider: May 11, 2022 Time Seen by a Provider: 09:50 Allergies and Home Medications Allergies Coded Allergies: NKANo Known Allergies (Verified Allergy, Unknown, 04/16/17) Patient Home Medication List Home Medication List Reviewed: Yes Aspirin (Aspirin EC) 81 Mg Tablet.dr, 81 MG PO DAILY, (Reported) Entered as Reported by: SHILPA NEVILLE on 04/15/17 1245 Last Action: Reviewed Donepezil HCl (Donepezil HCl) 10 Mg Tablet, 10 MG PO HS, (Reported) Entered as Reported by: MAMADOU CHAPA on 05/11/22 1516 Last Action: Reviewed Glipizide (Glipizide) 5 Mg Tablet, 5 MG PO 1700, (Reported) Entered as Reported by: MAMADOU CHAPA on 05/11/221515 Last Action: Reviewed Lisinopril (Lisinopril) 10 Mg Tablet, 10 MG PO 1700, (Reported) Entered as Reported by: MAMADOU CHAPA on 05/11/221516 Last Action: Reviewed Lovastatin (Lovastatin) 20 Mg Tablet, 20 MG PO 1700, (Reported) Entered as Reported by: MAMADOU CHAPA on 05/11/221515 Last Action: Reviewed Memantine HCl (Memantine HCl) 10 Mg Tablet, 10 MG PO 1700, (Reported) Entered as Reported by: MAMADOU CHAPA on 05/11/221515 Last Action: Reviewed Metformin HCl (Metformin HCl) 500 Mg Tablet, 500 MG PO 1700, (Reported) Entered as Reported by: MAMADOU CHAPA on 05/11/221515 Last Action: Reviewed Metoprolol Succinate (Metoprolol Succinate) 25 Mg Tab.er.24h, 12.5 MG PO 1700, (Reported) Entered as Reported by: SHILPA NEVILLE on 04/15/171244 Last Action: Reviewed Warfarin Sodium (Jantoven) 5 Mg Tablet, 5 MG PO CHAMBERLAIN,TU,TH,SA @1700, (Reported) Entered as Reported by: SHILPA NEVILLE on 04/15/171244 Last Action: Reviewed Warfarin Sodium (Jantoven) 5 Mg Tablet, 2.5 MG PO MO,WE,FR @1700, (Reported) Entered as Reported by: SHILPA NEVILLE on 04/15/171244 Last Action: Reviewed Discontinued Medications Biotin (Biotin) 5,000 Mcg Tab.rapdis, 5,000 MCG PO DAILY, (Reported) Discontinued Reason: No Longer Taking Entered as Reported by: SHILPA NEVILLE on 04/15/171244 Last Action: Discontinued Cefuroxime Axetil (Cefuroxime) 250 Mg Tablet, 250 MG PO BID Discontinued Reason: No Longer Taking Prescribed by: SURYA SUAREZ on 04/16/17 1301 Last Action: Discontinued Cholecalciferol (Vitamin D3) (Vitamin D3) 1,000 Unit Capsule, 1,000 UNIT PO BID, (Reported) Discontinued Reason: No Longer Taking Entered as Reported by: SHILPA NEVILLE on 04/15/171246 Last Action: Discontinued Cyanocobalamin (Vitamin B-12) (Vitamin B-12) 1,000 Mcg Tablet, 1,000 MCG PO DAILY, (Reported) Discontinued Reason: No Longer Taking Entered as Reported by: SHILPA NEVILLE on 04/15/171244 Last Action: Discontinued Glipizide (Glipizide Xl) 5 Mg Tab.osm.24, 5 MG PO DAILY, (Reported) Discontinued Reason: No Longer Taking Entered as Reported by: CHANDLER CRUZ on 05/12/101625 Last Action: Discontinued Hydrocodone Bit/Acetaminophen (Lortab 5 Mg Tablet) 1 Each Tablet, 1 EACH PO Q4H PRN for PAIN Discontinued Reason: No Longer Taking Prescribed by: NEHEMIAH TIMMONS on 04/16/171805 Last Action: Discontinued Lisinopril (Lisinopril) 10 Mg Tablet, 10 MG PO DAILY, (Reported) Discontinued Reason: No Longer Taking Entered as Reported by: SHILPA NEVILLE on 04/15/171244 Last Action: Discontinued Lovastatin (Lovastatin 20 Mg) 20 Mg Tablet, 20 MG PO HS, (Reported) Discontinued Reason: No Longer Taking Entered as Reported by: CHANDLER CRUZ on 05/12/101625 Last Action: Discontinued Hulbert-3 Fatty Acids/Fish Oil (Fish Oil 1,200 mg Softgel) 1 Each Capsule, 1,200 MG PO BID, (Reported) Discontinued Reason: No Longer Taking Entered as Reported by: SHILPA NEVILLE on 04/15/171245 Last Action: Discontinued Prednisone (Prednisone) 20 Mg Tab, 20 MG PO BID Discontinued Reason: No Longer Taking Prescribed by: NEHEMIAH TIMMONS on 04/16/171805 Last Action: Discontinued Assessment/Plan Assessment and Plan Admitted with septic shock due to UTI and found to have gram negative bacteremia as well. Started on IV fluids and antibiotics. BP improved. Await culture results. Problems: (1) Septic shock Status: Acute (2) Gram-negative bacteremia Status: Acute (3) Lactic acidosis Status: Acute (4) UTI (urinary tract infection) Status: Acute (5) Supratherapeutic INR Status: Acute (6) Dementia Status: Acute Admission Diagnosis Septic shock Admission Status: Inpatient Order (span 2 midnights) Reason for Inpatient Admission: UTI Bacteremia Supervisory-Addendum Brief Verification & Attestation Participated in pt care: history, MDM, physical Personally performed: exam, history, MDM, supervision of care Care discussed with: Medical Student Procedures: n/a Results interpretation: Verified all documentation A medical student performed and documented this service in my presence. I reviewed and verified all information documented by the medical student and made modifications to such information, when appropriate. I personally performed the physical exam and medical decision making. PANDA YI May 11, 2022 13:06 RACHEL BOSS MD May 11, 2022 17:58
[2022-05-11 13:10] LABS: ABG BASE EXCESS 0.7 MMOL/L (-2.5-2.5); ABG OXYGEN SATURATION 98 % (94-100); ABG PCO2 45 MMHG (35-45); ABG PH 7.37 (7.37-7.43); ABG PO2 87 MMHG (79-93); ABG TCO2 26.7 MMOL/L (21.0-31.0)
[2022-05-11 13:11] LABS: PATIENT TEMP 37.1; VENTILATOR NO
[2022-05-11] MEDS ORDERED: LOVA20TA2 PO (15:16)
[2022-05-11] MEDS ORDERED: MEMA10TA57 PO (15:16)
[2022-05-11] MEDS ORDERED: GLIP5TAB13 PO (15:16)
[2022-05-11] MEDS ORDERED: DONE10TA41 PO (15:16)
[2022-05-11] MEDS ORDERED: METF-397 PO (15:16)
[2022-05-11] MEDS ORDERED: LISI10TA25 PO (15:17)
[2022-05-11] MEDS ORDERED: VANCOMYCIN 1250 MG/NS 250 ML IVPB IV SCH ×2 (17:30)
[2022-05-12] MEDS: CEFEPIME INJECTION 1,000 MG in NS (IVPB) 50 ML IV SCH ×2 (00:22→06:45)
[2022-05-12 04:41] LABS: MONOCYTES # (AUTO) 0.8 10^3/uL (0.0-1.0)
[2022-05-12 04:43] LABS: BASOPHILS # (AUTO) 0.1 10^3/uL (0.0-0.1); BASOPHILS % (AUTO) 1 % (0-10); EOSINOPHILS # (AUTO) 0.3 10^3/uL (0.0-0.3); EOSINOPHILS % (AUTO) 2 % (0-10); HEMATOCRIT 44 % (40-54); HEMOGLOBIN 14.6 g/dL (13.3-17.7); LYMPHOCYTES # (AUTO) 0.9 10^3/uL (1.0-4.0); LYMPHOCYTES % (AUTO) 8 % (12-44); MEAN CORPUSCULAR HEMOGLOBIN 31 pg (25-34); MEAN CORPUSCULAR HGB CONC 33 g/dL (32-36); MEAN CORPUSCULAR VOLUME 95 fL (80-99); MEAN PLATELET VOLUME 8.6 fL (9.0-12.2); MONOCYTES % (AUTO) 6 % (0-12); NEUTROPHILS # (AUTO) 10.3 10^3/uL (1.8-7.8); NEUTROPHILS % (AUTO) 82 % (42-75); PLATELET COUNT 125 10^3/uL (130-400); WHITE BLOOD COUNT 12.4 10^3/uL (4.3-11.0)
[2022-05-12 04:52] LABS: INR 3.3 (0.8-1.4); PROTHROMBIN TIME PATIENT 34.1 SEC (12.2-14.7)
[2022-05-12 04:54] LABS: ALBUMIN 3.1 GM/DL (3.2-4.5); POTASSIUM 3.5 MMOL/L (3.6-5.0)
[2022-05-12 04:55] LABS: CALCIUM 8.6 MG/DL (8.5-10.1)
[2022-05-12 04:56] LABS: TOTAL PROTEIN 5.8 GM/DL (6.4-8.2)
[2022-05-12 04:58] LABS: BILIRUBIN,TOTAL 0.6 MG/DL (0.1-1.0)
[2022-05-12 05:00] LABS: CREATININE SERUM 0.72 MG/DL (0.60-1.30)
[2022-05-12 05:03] LABS: MAGNESIUM 1.9 MG/DL (1.6-2.4)
[2022-05-12] MEDS: MAGNESIUM 1 GM/100 ML IVPB 100 ML IV SCH (05:41)
[2022-05-12] MEDS: KCL 20 MEQ TAB (K-DUR) PO SCH (05:41)
[2022-05-12] MEDS: POTASSIUM CL 10MEQ/50ML IVPB 50 ML IV SCH ×3 (05:41→07:03)
[2022-05-12] MEDS: NS IV 1000 ML 1,000 ML IV SCH ×3 (05:45→21:48)
--- NOTE | 2022-05-12 07:40 | Diagnostic Imaging Report ---
INDICATION: Sepsis. Comparison with 05/11/2022. FINDINGS: The lungs show improved aeration today. No definite infiltrates have developed. Heart is not enlarged. Pacemaker unchanged on the left. No pneumothorax or pleural effusion. IMPRESSION: Lungs are well-aerated with no acute changes noted. Dictated by: Dictated on workstation # [id number]
[2022-05-12] MEDS: DOCUSATE SODIUM 100 MG (COLACE) CAP PO SCH ×2 (08:28→19:59)
[2022-05-12] MEDS: ASPIRIN E.C. 81 MG (ECOTRIN) TAB PO SCH (08:29)
[2022-05-12] MEDS: SENNOSIDES 8.6 MG (SENOKOT) TAB PO SCH ×2 (08:29→19:59)
[2022-05-12] MEDS ORDERED: warFARin 5 MG (COUMADIN) TAB PO SCH (08:30)
[2022-05-12] MEDS ORDERED: warFARin 2.5 MG (COUMADIN) TAB PO SCH ×2 (08:30→18:00)
[2022-05-12] MEDS ORDERED: hydrALAZINE (APESOLINE) 20 MG/ML VIAL IV PRN (08:30)
--- NOTE | 2022-05-12 09:01 | Physical Therapy Evaluation ---
PT Evaluation-General Medical Diagnosis Admission Date May 10, 2022 at 20:59 Medical Diagnosis: septic shock Onset Date: May 10, 2022 Therapy Diagnosis Therapy Diagnosis: impaired mobility Height/Weight Height (Feet): 5 Height (Inches): 7.00 Weight (Pounds): 155 Weight (Ounces): 5.0 Precautions Precautions/Isolations: Fall Prevention, Standard Precautions Referral Physician: Ernestine Kumar DO Reason for Referral: Evaluation/Treatment Medical History Additional Medical History Past Medical History Surgeries: Pacemaker Coronary Artery Disease, Hypertension, Irregular Heartbeat Dementia Diabetes, Non-Insulin dep Reviewed History: Yes Social History Home: Single Level Current Living Status: Spouse Entry Into Home: Stairs With Railing PT Steps Into Home: 2 Prior Prior Level of Function SCALE: Activities may be completed with or without assistive devices. 5-Uerdgfxanu-blewzmw completes the activity by him/herself with no assistance from a helper. 5-Set-up or Clean-up Assistance-helper sets up or cleans up; patient completes activity. Gravette assists only prior to or following the activity. 4-Supervision or Touching Assistance-helper provides verbal cues and/or touching/steadying and/or contact guard assistance as patient completes activit y. Assistance may be provided throughout the activity or intermittently. 3-Partial/Moderate Assistance-helper does LESS THAN HALF the effort. Gravette lifts, holds or supports trunk or limbs, but provides less than half the effort. 2-Substantial/Maximal Assistance-helper does MORE THAN HALF the effort. Gravette lifts or holds trunk or limbs and provides more than half the effort. 8-Tcqhpypzp-kjmoqo does ALL the effort. Patient does none of the effort to complete the activity. Or, the assistance of 2 or more helpers is required for the patient to complete the activity. If activity was not attempted, code reason: 7-Patient Refused. 9-Not Applicable-not attempted and the patient did not perform the activity before the current illness, exacerbation or injury. 10-Not Attempted due to Environmental Limitations-(lack of equipment, weather restraints, etc.). 88-Not Attempted due to Medical Conditions or Safety Concerns. Bed Mobility: 3 Transfers (B,C,W/C): 3 Gait: 3 Indoor Mobility (Ambulation): Needed Some Help Stairs: Needed Some Help Prior Devices Use: Walker PT Evaluation-Current Subjective Patient in bed pre tx, agrees to PT, voices no complaints of pain. Patient is very confused and doesn't follow directions. Pt/Family Goals none stated Objective Patient Orientation: Person, Confused Attachments: Singh Catheter ROM/Strength ROM Lower Extremities WNL Strength Lower Extremities not able to test Sensory Hearing: Functional Transfers Roll Left to Right (QC): 2 Sit to Lying (QC): 2 Lying to Sitting/Side of Bed(Q: 2 Sit to Stand (QC): 2 Gait Does the Patient Walk?: Yes Mode of Locomotion: Walk Anticipated Mode of Locomotion: Walk Walk 10 feet (QC): 2 Distance: 25' Gait Assistive Device: FWW Comments/Gait Description Patient ambulates in his room, he doesn't follow directions, therapist has to physically direct him. Balance Sitting Static: Fair Sitting Dynamic: Fair Standing Static: Poor Standing Dynamic: Poor Treatment patient won't follow any directions for continued strengthening Assessment/Needs Patient in bed post tx with nurse call, phone, tray, all needs met, nurse in room. Rehab Potential: Poor PT Intermediate Goals Lead Javascript Developer Goals PT Lead Javascript Developer Goals Time Frame: May 19, 2022 Roll Left & Right (QC): 3 Sit to Lying (QC): 3 Lying-Sitting on Side/Bed(QC): 3 Sit to Stand (QC): 3 Chair/Eoi-cy-Tjumi Xfer(QC): 3 Walk 10 feet (QC): 3 Walk 50ft with 2 Turns (QC): 3 PT Plan Problem List Problem List: Activity Tolerance, Functional Strength, Safety, Balance, Gait, Transfer, Bed Mobility, ROM Treatment/Plan Treatment Plan: Continue Plan of Care Treatment Plan: Bed Mobility, Education, Functional Activity Radha, Functional Strength, Gait, Safety, Therapeutic Exercise, Transfers Treatment Duration: May 19, 2022 Frequency: 6 times per week Estimated Hrs Per Day: .25 hour per day Patient and/or Family Agrees t: Yes Safety Risks/Education Patient Education: Gait Training, Transfer Techniques, Correct Positioning, Safety Issues Teaching Recipient: Patient Teaching Methods: Demonstration, Discussion Response to Teaching: Reinforcement Needed Discharge Recommendations Plan Patient will perform bed mobility and transfer training, balance and endurance training, functional strengthening, stair training, gait training, and education, to improve functional mobility and independence at home. Therapy Discharge Recommendati: Other, See Comments (NH) Time/GCodes Time In: 823 Time Out: 838 Total Billed Treatment Time: 15 Total Billed Treatment 1 visit MARILYN 15' CAMILA AVILEZ PT May 12, 2022 09:01
--- NOTE | 2022-05-12 09:02 | Progress Note - Cardiology ---
Cardiology SOAP Progress Note Subjective: Sitting up on the side of the bed with PT Oriented to self only Spouse at the bedside Objective: I&O/Vital Signs 05/12/22 05/12/22 05/12/22 05/12/22 01:29 02:35 03:00 03:47 Pulse 101 78 B/P (MAP) 159/88 (109) 146/90 (110) Pulse Ox 92 92 O2 Delivery Room Air Room Air Room Air Room Air 05/12/22 05/12/22 05/12/22 05/12/22 04:00 04:47 05:00 06:00 Temp 37.0 Pulse 74 77 74 Resp 8 14 22 B/P (MAP) 118/85 (99) 136/86 (109) 151/86 (113) Pulse Ox 92 94 89 O2 Delivery Room Air Room Air Room Air 05/12/22 05/12/22 05/12/22 05/12/22 07:00 07:00 08:00 08:00 Pulse 80 80 82 Resp 20 25 B/P (MAP) 160/119 (133) 159/94 (115) Pulse Ox 90 92 98 O2 Delivery Room Air Room Air Room Air 05/12/22 05/12/22 05/12/22 05/12/22 08:54 09:00 10:00 11:00 Temp 37.1 Pulse 100 96 108 Resp 24 35 22 B/P (MAP) 114/97 (103) 158/99 (118) 159/100 (119) Pulse Ox 99 94 99 O2 Delivery Room Air Room Air Room Air 05/12/22 05/12/22 12:00 12:03 Pulse 101 100 Resp 33 B/P (MAP) 159/105 (123) Pulse Ox 100 O2 Delivery Room Air 05/11/22 23:59 Intake Total 50 ml Output Total 1450 ml Balance -1400 ml Weight (Pounds): 155 Weight (Ounces): 5.0 Weight (Calculated Kilograms): 70.129866 Constitutional: other (oriented to self only) Respiratory: No accessory muscle use, No respiratory distress; chest expansion is symmetric, chest is bilaterally symmetric, other (diminished bases with poor inspiratory effort) Cardiovascular: regular rate-rhythm; No JVD; S1 and S2, systolic murmur Gastrointestional: No tender; soft, round, audible bowel sounds Extremities: no lower extremity edema bilateral Neurologic/Psychiatric: other (moves extremities) Skin: No rash on exposed areas, No ulcerations on exposed areas Results/Procedures: Labs Laboratory Tests 05/11/22 18:12: Glucometer 93 05/12/22 04:24: White Blood Count 12.4H, Red Blood Count 4.66, Hemoglobin 14.6, Hematocrit 44, Mean Corpuscular Volume 95, Mean Corpuscular Hemoglobin 31, Mean Corpuscular Hemoglobin Concent 33, Red Cell Distribution Width 13.9, Platelet Count 125L, Mean Platelet Volume 8.6L, Immature Granulocyte % (Auto) 1, Neutrophils (%) (Auto) 82H, Lymphocytes (%) (Auto) 8L, Monocytes (%) (Auto) 6, Eosinophils (%) (Auto) 2, Basophils (%) (Auto) 1, Neutrophils # (Auto) 10.3H, Lymphocytes # (Auto) 0.9L, Monocytes # (Auto) 0.8, Eosinophils # (Auto) 0.3, Basophils # (Auto) 0.1, Immature Granulocyte # (Auto) 0.1, Percent Immature Platelet Fraction 0.9, Prothrombin Time 34.1H, INR Comment 3.3H, Sodium Level 142, Potassium Level 3.5L, Chloride Level 107, Carbon Dioxide Level 21, Anion Gap 14, Blood Urea Nitrogen 8, Creatinine 0.72, Estimat Glomerular Filtration Rate 88, BUN/Creatinine Ratio 11, Glucose Level 132H, Calcium Level 8.6, Corrected Calcium 9.3, Phosphorus Level 2.0L, Magnesium Level 1.9, Total Bilirubin 0.6, Aspartate Amino Transf (AST/SGOT) 23, Alanine Aminotransferase (ALT/SGPT) 20, Alkaline Phosphatase 59, Total Protein 5.8L, Albumin 3.1L Microbiology 05/10/22 MRSA Screen - Final, Complete MRSA not isolated 05/10/22 Blood Culture - Preliminary, Resulted No growth 05/10/22 Urine Culture - Final, Complete Escherichia coli Procedures NAME: [facility] REC#: [id number] PT STATUS: ADM IN : 1935 PHYSICIAN: RUDI PIERRE DO ADMIT DATE: 05/10/22/ICU Signed Date of Exam:05/12/22 CHEST 1 VIEW, AP/PA ONLY INDICATION: Sepsis. Comparison with 05/11/2022. FINDINGS: The lungs show improved aeration today. No definite infiltrates have developed. Heart is not enlarged. Pacemaker unchanged on the left. No pneumothorax or pleural effusion. IMPRESSION: Lungs are well-aerated with no acute changes noted. Dictated by: Dictated on workstation # [id number] Dict: 05/12/22 0737 Trans: 05/12/22 0758 [facility] [id number] Interpreted by: DALTON BERG MD Electronically signed by: DALTON BERG MD 05/12/22 0758 A/P: Assessment: UTI with sepsis - management per medical services Chronic, mod, exertional shortness of breath - MPI of Jul 22, 2020: No evidence of significant myocardial ischemia or infarction on this study. Normal regional wall motion. Normal global left ventricular systolic function with a calculated ejection fraction of 64%. - Echocardiogram of Jul 23, 2020 showed LVEF 60-65%. PASP 25-30mmHg. Mild TR Symptomatic sinus node dysfunction. - History of paroxysmal atrial flutter for which he has undergone ablation with Dr Nicole in Jun 2015 but has since had recurrence of A fib - Chronic warfarin anticoagulation for stroke prophylaxis being followed by Dr. Hughes. - Amb card monitoring of 03/23-04/06/17 shows PSVT/PAF and also episodes of vent asystolic pauses of up to 5.2 seconds. The longest pause occurred when he was awake S/P - Biotronik dual chamber PPM implant on 04-15-17 - functioning normally per interrogation of 02/17/22 CAD - Angiographically mild coronary artery disease on cardiac catheterization of April 2010. - MPI of Jul 22, 2020: No evidence of significant myocardial ischemia or infarction on this study. Normal regional wall motion. Normal global left vent ricular systolic function with a calculated ejection fraction of 64%. Hyperlipidemia, -being treated with lovastatin - being followed by Dr. Hughes. Maturity onset diabetes mellitus. - followed by PCP Carotid dz: - Mild to mod, bilateral carotid arterial disease per carotid ultrasound of February 2020 Chronic intermittent dizziness - of undetermined etiology Dementia Plan: UTI with sepsis - management of sepsis per medical/eICU services Hypotension - improved - restart home medications OAC - hold d/t supra-therapeutic INR (4.0) CAD - continue ASA Monitor lab - replace electrolytes as indicated FRITZ GARCIA May 12, 2022 09:02
--- NOTE | 2022-05-12 09:20 | Progress Note - Cardiology ---
Cardiology SOAP Progress Note Subjective: Does not report cp or palp or syncope or shortness of breath or n/v/d or weakness Objective: I&O/Vital Signs 05/11/22 05/11/22 05/11/22 05/11/22 22:00 22:19 22:49 23:00 Pulse 76 105 107 70 Resp 17 22 B/P (MAP) 125/71 (90) 132/89 (103) Pulse Ox 94 95 O2 Delivery Nasal Cannula Nasal Cannula O2 Flow Rate 1.00 1.00 05/11/22 05/12/22 05/12/22 05/12/22 23:59 00:00 01:00 01:00 Pulse 69 80 79 Resp 18 18 B/P (MAP) 138/86 (103) 137/81 (101) Pulse Ox 95 93 95 O2 Delivery Room Air Nasal Cannula Nasal Cannula O2 Flow Rate 1.00 1.00 05/12/22 05/12/22 05/12/22 05/12/22 01:29 02:35 03:00 03:47 Pulse 101 78 B/P (MAP) 159/88 (109) 146/90 (110) Pulse Ox 92 92 O2 Delivery Room Air Room Air Room Air Room Air 05/12/22 05/12/22 05/12/22 05/12/22 04:00 04:47 05:00 06:00 Temp 37.0 Pulse 74 77 74 Resp 8 22 B/P (MAP) 118/85 (99) 136/86 (109) 151/86 (113) Pulse Ox 92 94 89 O2 Delivery Room Air Room Air Room Air 05/12/22 05/12/22 05/12/22 05/12/22 07:00 07:00 08:00 08:54 Temp 37.1 Pulse 80 80 Resp 20 B/P (MAP) 160/119 (133) Pulse Ox 90 92 O2 Delivery Room Air Room Air 05/12/22 00:00 Intake Total 50 ml Output Total 1450 ml Balance -1400 ml Weight (Pounds): 155 Weight (Ounces): 5.0 Weight (Calculated Kilograms): 70.872216 Constitutional: No AAO x 3; other (more alert today, responsive to questions, oriented to self only) Respiratory: No accessory muscle use, No respiratory distress; chest expansion is symmetric, chest is bilaterally symmetric, other (diminished bases with poor inspiratory effort) Cardiovascular: regular rate-rhythm; No JVD; S1 and S2, systolic murmur Gastrointestional: No tender; soft, round, audible bowel sounds Extremities: no lower extremity edema bilateral Neurologic/Psychiatric: other (moves all limbs equally) Skin: No rash on exposed areas, No ulcerations on exposed areas Results/Procedures: Labs Laboratory Tests 05/11/22 10:09: Glucometer 168H 05/11/22 11:40: Blood Gas Puncture Site UNK, Blood Gas Patient Temperature 37.1, Arterial Blood pH 7.37, Arterial Blood Partial Pressure CO2 45, Arterial Blood Partial Pressure O2 87, Arterial Blood HCO3 25, Arterial Blood Total CO2 26.7, Arterial Blood Oxygen Saturation 98, Arterial Blood Base Excess 0.7, Bon Test UNK, Blood Gas Ventilator Setting NO, Blood Gas Inspired Oxygen UNK 05/11/22 18:12: Glucometer 93 05/12/22 04:24: White Blood Count 12.4H, Red Blood Count 4.66, Hemoglobin 14.6, Hematocrit 44, Mean Corpuscular Volume 95, Mean Corpuscular Hemoglobin 31, Mean Corpuscular Hemoglobin Concent 33, Red Cell Distribution Width 13.9, Platelet Count 125L, M cierra Platelet Volume 8.6L, Immature Granulocyte % (Auto) 1, Neutrophils (%) (Aut o) 82H, Lymphocytes (%) (Auto) 8L, Monocytes (%) (Auto) 6, Eosinophils (%) (Auto) 2, Basophils (%) (Auto) 1, Neutrophils # (Auto) 10.3H, Lymphocytes # (Auto) 0.9L, Monocytes # (Auto) 0.8, Eosinophils # (Auto) 0.3, Basophils # ( Auto) 0.1, Immature Granulocyte # (Auto) 0.1, Percent Immature Platelet Fraction 0.9, Prothrombin Time 34.1H, INR Comment 3.3H, Sodium Level 142, Potassium Level 3.5L, Chloride Level 107, Carbon Dioxide Level 21, Anion Gap 14, Blood Urea Nitrogen 8, Creatinine 0.72, Estimat Glomerular Filtration Rate 88, BUN/Creatinine Ratio 11, Glucose Level 132H, Calcium Level 8.6, Corrected Calcium 9.3, Phosphorus Level 2.0L, Magnesium Level 1.9, Total Bilirubin 0.6, Aspartate Amino Transf (AST/SGOT) 23, Alanine Aminotransferase (ALT/SGPT) 20, Alkaline Phosphatase 59, Total Protein 5.8L, Albumin 3.1L Microbiology 05/10/22 MRSA Screen - Final, Complete MRSA not isolated 05/10/22 Blood Culture - Preliminary, Resulted No growth 05/10/22 Urine Culture - Preliminary, Resulted Escherichia coli Laboratory Tests 05/10/22 17:55 05/11/22 04:06 05/12/22 04:24 A/P: Assessment: UTI with sepsis - management per medical services Chronic, mod, exertional shortness of breath - MPI of Jul 22, 2020: No evidence of significant myocardial ischemia or infarction on this study. Normal regional wall motion. Normal global left ventricular systolic function with a calculated ejection fraction of 64%. - Echocardiogram of Jul 23, 2020 showed LVEF 60-65%. PASP 25-30mmHg. Mild TR Symptomatic sinus node dysfunction. - History of paroxysmal atrial flutter for which he has undergone ablation with Dr Nicole in Jun 2015 but has since had recurrence of A fib - Chronic warfarin anticoagulation for stroke prophylaxis being followed by Dr. Hughes. - Amb card monitoring of 03/23-04/06/17 shows PSVT/PAF and also episodes of vent as ystolic pauses of up to 5.2 seconds. The longest pause occurred when he was awake S/P - Biotronik dual chamber PPM implant on 04-15-17 - functioning normally per interrogation of 02/17/22 and per telemetry during this admission CAD - Angiographically mild coronary artery disease on cardiac catheterization of April 2010. - MPI of Jul 22, 2020: No evidence of significant myocardial ischemia or in farction on this study. Normal regional wall motion. Normal global left ventricular systolic function with a calculated ejection fraction of 64%. Hyperlipidemia, -being treated with lovastatin - being followed by Dr. Hughes. Maturity onset diabetes mellitus. - followed by PCP Carotid dz: - Mild to mod, bilateral carotid arterial disease per carotid ultrasound of February 2020 Chronic intermittent dizziness - of undetermined etiology Dementia Plan: UTI with sepsis - management of sepsis per medical/eICU services Hypotension - improved - restart home medications OAC - resume warfarin when INR drops into the therapeutic range of 2 - 3 CAD - continue ASA Monitor lab - replace SURYA CAMPUZANO MD FACP [facility] May 12, 2022 09:20
--- NOTE | 2022-05-12 11:58 | Progress Note ---
PANDA YI 05/12/22 1158: Subjective Subjective/Events-last exam Adin Campo is a 87M with a pmh of dementia, afib, htn,T2DM, gout, and incontinence who presented with septic shock from a UTI (E.coli). Pt is much more responsive to my questions than he was yesterday. He is talkative with mild confusion, similar to his baseline. Pt reports no pain. He is passing urine through catheter and had an episode of fecal incontinence last night. Pt denies any fever or chills and says he feels much better since yesterday. Review of Systems General: No Chills, No Night Sweats HEENT: No Head Aches Pulmonary: No Dyspnea, No Cough Cardiovascular: No: Chest Pain, Edema Gastrointestinal: No: Nausea, Vomiting, Abdominal Pain Neurological: Confusion (mild confusion on comands in physical exam. Unsure if this is his normal baseline.) Focused Exam Possible Source: Genitouriary Lactate Level 05/10/22 20:05: Lactic Acid Level 2.05*H 05/10/22 22:05: Lactic Acid Level 2.27*H 05/11/22 04:06: Lactic Acid Level 1.97 Time of Focused Exam: 20:40 Respiratory: Chest Non Tender, Lungs Clear, Normal Breath Sounds, No Accessory Muscle Use, No Respiratory Distress Cardiovascular: Regular Rate, Rhythm, No Edema, No Gallop, No JVD, No Murmur, Normal Peripheral Pulses Peripheral Pulses: 2+ Radial Pulses (R), 2+ Radial Pulses (L) Skin: normal color, warm/dry Objective Exam Last Set of Vital Signs Vital Signs Date Time Temp Pulse Resp B/P (MAP) Pulse Ox O2 Delivery O2 Flow Rate FiO2 05/12/22 11:00 108 22 159/100 (119) 99 Room Air 05/12/22 08:54 37.1 05/12/22 01:00 1.00 Capillary Refill : Less Than 3 Seconds I&O Intake and Output 05/12/22 00:00 Intake Total 2115 ml Output Total 2425 ml Balance -310 ml Intake Oral 0 ml IV Total 2115 ml Output Urine Total 2425 ml General: Alert, Cooperative, No Acute Distress HEENT: Atraumatic, EOMI Neck: Supple, No JVD Lungs: Clear to Auscultation, Normal Air Movement Heart: Regular Rate, Normal S1, Normal S2 Abdomen: Normal Bowel Sounds, Soft, No Tenderness, No Hepatosplenomegaly, No Masses Extremities: No Clubbing, No Cyanosis, No Edema Skin: No Rashes, No Significant Lesion Neuro: Normal Speech, Normal Tone Psych/Mental Status: Mental Status NL (mild confusion at baseline), Mood NL Results Lab Laboratory Tests 05/11/22 18:12: Glucometer 93 05/12/22 04:24: White Blood Count 12.4H, Red Blood Count 4.66, Hemoglobin 14.6, Hematocrit 44, Mean Corpuscular Volume 95, Mean Corpuscular Hemoglobin 31, Mean Corpuscular Hemoglobin Concent 33, Red Cell Distribution Width 13.9, Platelet Count 125L, Mean Platelet Volume 8.6L, Immature Granulocyte % (Auto) 1, Neutrophils (%) (Auto) 82H, Lymphocytes (%) (Auto) 8L, Monocytes (%) (Auto) 6, Eosinophils (%) (Auto) 2, Basophils (%) (Auto) 1, Neutrophils # (Auto) 10.3H, Lymphocytes # (Auto) 0.9L, Monocytes # (Auto) 0.8, Eosinophils # (Auto) 0.3, Basophils # (Auto) 0.1, Immature Granulocyte # (Auto) 0.1, Percent Immature Platelet Fraction 0.9, Prothrombin Time 34.1H, INR Comment 3.3H, Sodium Level 142, Potassium Level 3.5L, Chloride Level 107, Carbon Dioxide Level 21, Anion Gap 14, Blood Urea Nitrogen 8, Creatinine 0.72, Estimat Glomerular Filtration Rate 88, BUN/Creatinine Ratio 11, Glucose Level 132H, Calcium Level 8.6, Corrected Calcium 9.3, Phosphorus Level 2.0L, Magnesium Level 1.9, Total Bilirubin 0.6, Aspartate Amino Transf (AST/SGOT) 23, Alanine Aminotransferase (ALT/SGPT) 20, Alkaline Phosphatase 59, Total Protein 5.8L, Albumin 3.1L Microbiology 05/10/22 MRSA Screen - Final, Complete MRSA not isolated 05/10/22 Blood Culture - Preliminary, Resulted No growth 05/10/22 Urine Culture - Preliminary, Resulted Escherichia coli Assessment/Plan Assessment/Plan Assess & Plan/Chief Complaint Sepsis WBC count down to 12.4 from 19 yesterday. Continue IV abx, Vancomycin DC due to negative MRSA screen. Switch from cefepime to other abx when sensitivities r eturn. Continue IV fluids UTI Continue IV abx and fluids Gram Negative Bacteremia- E.coli Continue IV abx and fluids HTN pts BP was 160/119 this morning. Metoprolol and Lisinopril were resumed. Hydralazine prn. Lactic acidosis trended down from 6 to 1.97 Elevated INR INR down from 4.0 to 3.3 today. Warfarin resumed. Monitor for signs of bleeding, none currently Hypomagnesemia and hypokalemia Replacing electrolytes IV AFib Metoprolol resumed, no tachycardia today T2DM home meds held, glucose 132 today Patient can be moved from ICU to the floor today Clinical Quality Measures Admission Status Admission Dx Septic shock Fever, tachycardia, elevated WBC count, lactic acid >4. Continue IV cefepime and vancomycin. Await culture and sensitivity. Continue IV fluids. Monitor BP, most recent 108/65 UTI E coli in urine with positive nitrites, LE, WBCs, and large bacteria on UA. Continue IV abx and fluids Gram Negative Bacteremia Confirmed by blood culture, awaiting results with sensitivity. Continue IV abx and fluids Lactic acidosis Continue IV fluids. Lactic acid was 1.97 this morning Hypomagnesemia 1.5 this morning. Given Mg sulfate IV. Afib Keep HR controlled, not currently tachycardic. Elevated INR Warfarin held due to INR of 4.0. Monitor for lowering to therapeutic level. T2DM Glucose 207 as of this morning. Continue accuchecks. Consider sliding scale if persistent elevation. CAD Hold antihypertensives due to episode of hypotension last night RACHEL BOSS MD 05/12/22 1743: Subjective Date Seen by a Provider: May 12, 2022 Time Seen by a Provider: 09:30 Assessment/Plan Assessment/Plan Assess & Plan/Chief Complaint Admitted with septic shock, lactic acidosis, acute kidney injury, now resolved. Continue antibiotics for E coli UTI and bacteremia. Restart warfarin, INR trending down. Stable for transfer to medical floor. Diagnosis/Problems Diagnosis/Problems (1) Septic shock Status: Resolved Resolution Date/Time: 05/12/22 @ 17:42 (2) JOVANNY (acute kidney injury) Status: Resolved Resolution Date/Time: 05/12/22 @ 17:42 (3) UTI (urinary tract infection) Status: Acute (4) Gram-negative bacteremia Status: Acute (5) Lactic acidosis Status: Resolved Resolution Date/Time: 05/12/22 @ 17:43 (6) Supratherapeutic INR Status: Acute (7) On Coumadin for atrial fibrillation Status: Chronic Supervisory-Addendum Brief Verification & Attestation Participated in pt care: history, MDM, physical Personally performed: exam, history, MDM, supervision of care Care discussed with: Medical Student Procedures: n/a Results interpretation: Verified all documentation A medical student performed and documented this service in my presence. I reviewed and verified all information documented by the medical student and made modifications to such information, when appropriate. I personally performed the physical exam and medical decision making. PANDA YI May 12, 2022 11:58 RACHEL BOSS MD May 12, 2022 17:43
--- NOTE | 2022-05-12 12:20 | Tele-ICU Progress Note ---
Subjective Date Seen by a Provider: May 12, 2022 Time Seen by a Provider: 12:20 Subjective/Events-last exam Tele-ICU Physician , Progress Note ) Available chart/ vitals / labs / Images reviewed Video assessment done using teleICU camera, rest of exam as per RN Discussed with RN Events overnight : febrtile 37 hemodynamically stable Respiratory - ra I/O =maxwell 300 Drips: Pressors- no Consultants: Hospital course: (05/10) 87yM Admit w/ sepsis, UTI, supratherapeutic INR, Altered behavior (profuse vomiting in ED) A/P Fever 101 / sepsis/ N/V ( neg covid and flu 05/10 - recived IVF with normalization of lactate and BP - CT abdomen pelvis negative for acute pathology UTI with Ecoli on cx 05/10 and bacteremia GNR 05/10 ( prob Ecoli as reported -Vancomycinstopped 05/12 and Cefepime 05/11 --> present CAD PAF , status post balation with recirrence and PPM implant on 04-15-17 -ECHO Jul 23, 2020 showed LVEF 60-65%. PASP 25-30mmHg. Mild TR - cards consulted - AC with coumadin INSPECTING SUPERVISOR supratherapeutic INR 3.2 on admission - coumadin management by PCP / cards - no active bleeding Mild hypoxia -resolved DM II - ISS TME with underlying dementia - CTH 05/11 - no acute chjanes Needs speach eval Lines : periph , (Central Line Necessity Reviewed) Singh: 05/10 - skin issues - will need to keep in OG: Nutrition: po Analgesia: Anxiety/ delirium VTE Prophylaxis: follow INR Stress Ulcer Prophylaxis: Plans in collaboration with bedside consultants and IM MDs. Discussed with RN to reach out if any questions or concerns A total of minutes of critical care time was devoted to this patient today, required to treat and/or prevent further deterioration of critical care condition ( as above ) . Sepsis Event Evaluation Height, Weight, BMI Height: 5'7.00" Weight: 155lbs. 5.0oz. 70.549118id; 23.90 BMI Method:Stated Focused Exam Lactate Level 05/10/22 20:05: Lactic Acid Level 2.05*H 05/10/22 22:05: Lactic Acid Level 2.27*H 05/11/22 04:06: Lactic Acid Level 1.97 Time of Focused Exam: 20:40 Exam Exam Patient acknowledged, consented, and participated in this virtual visit which was conducted using real time audio/video Vital Signs Date Time Temp Pulse Resp B/P (MAP) Pulse Ox O2 Delivery O2 Flow Rate FiO2 05/12/22 12:03 100 05/12/22 11:00 108 22 159/100 (119) 99 Room Air 05/12/22 10:00 96 35 158/99 (118) 94 Room Air 05/12/22 09:00 100 24 114/97 (103) 99 Room Air 05/12/22 08:54 37.1 05/12/22 08:00 82 25 159/94 (115) 98 Room Air 05/12/22 08:00 92 Room Air 05/12/22 07:00 80 05/12/22 07:00 80 20 160/119 (133) 90 Room Air 05/12/22 06:00 74 22 151/86 (113) 89 Room Air 05/12/22 05:00 77 14 136/86 (109) 94 Room Air 05/12/22 04:47 37.0 05/12/22 04:00 74 8 118/85 (99) 92 Room Air 05/12/22 03:47 92 Room Air 05/12/22 03:00 78 146/90 (110) 92 Room Air 05/12/22 02:35 101 159/88 (109) Room Air 05/12/22 01:29 Room Air 05/12/22 01:00 79 18 137/81 (101) 95 Nasal Cannula 1.00 05/12/22 01:00 80 05/12/22 00:00 69 18 138/86 (103) 93 Nasal Cannula 1.00 05/11/22 23:59 95 Room Air 05/11/22 23:00 70 22 132/89 (103) 95 Nasal Cannula 1.00 05/11/22 22:49 107 05/11/22 22:19 105 05/11/22 22:00 76 17 125/71 (90) 94 Nasal Cannula 1.00 05/11/22 21:00 93 15 107/70 (75) 96 Nasal Cannula 1.00 05/11/22 20:00 90 Room Air 05/11/22 20:00 79 24 111/79 (97) 97 Nasal Cannula 1.00 05/11/22 19:57 37.0 Nasal Cannula 1.00 05/11/22 19:15 68 29 115/79 (84) 99 Nasal Cannula 2.00 05/11/22 19:00 71 05/11/22 19:00 71 30 130/76 (87) 99 Nasal Cannula 2.00 05/11/22 18:26 36.9 05/11/22 18:00 70 15 116/72 (87) 90 Nasal Cannula 2.00 05/11/22 17:00 73 17 133/86 (102) 94 Nasal Cannula 2.00 05/11/22 16:00 66 34 135/84 (101) 94 Nasal Cannula 2.00 05/11/22 16:00 90 Nasal Cannula 2.00 05/11/22 15:26 36.7 05/11/22 15:00 70 116/72 (87) 91 Nasal Cannula 2.00 05/11/22 14:00 67 22 103/67 (79) 93 Nasal Cannula 2.00 05/11/22 13:00 68 05/11/22 13:00 67 18 109/84 (92) 94 Nasal Cannula 2.00 I & O 05/12/22 07:00 Intake Total 500 ml Output Total 2200 ml Balance -1700 ml Height & Weight Height: 5'7.00" Weight: 155lbs. 5.0oz. 70.310146wn; 23.90 BMI Method:Stated General Appearance: WD/WN, Mild Distress HEENT: No Scleral Icterus (L), No Scleral Icterus (R); Other (dry mucous membranes ) Neck: Non Tender, Supple; No JVD Respiratory: Chest Non Tender, Lungs Clear, Normal Breath Sounds, No Accessory Muscle Use, No Respiratory Distress Cardiovascular: Regular Rate, Rhythm, No Edema, No Gallop, No JVD, No Murmur, Normal Peripheral Pulses Capillary Refill: Less Than 3 Seconds Peripheral Pulses: 2+ Radial Pulses (R), 2+ Radial Pulses (L) Extremity: Normal Capillary Refill, Normal Inspection, No Pedal Edema Neurologic/Psychiatric: Aphasia, Disoriented Skin: Normal Color, Warm/Dry; No Jaundice Results Lab Laboratory Tests 05/10/22 17:55 05/11/22 04:06 05/12/22 04:24 Assessment/Plan Assessment/Plan 1 JENNY GARCIA MD May 12, 2022 12:20
--- NOTE | 2022-05-12 13:36 | Occupational Therapy Eval ---
OT Evaluation-General/PLF Medical Diagnosis Admission Date May 10, 2022 at 20:59 Medical Diagnosis: septic shock Onset Date: May 10, 2022 Therapy Diagnosis Therapy Diagnosis: n/a Height/Weight Height (Feet): 5 Height (Inches): 7.00 Weight (Pounds): 155 Weight (Ounces): 5.0 Precautions Precautions/Isolations: Fall Prevention, Standard Precautions Referral Physician: Ernestine Kumar DO Referral Reason: Evaluation/Treatment Medical History Additional Medical History dementia, afib, pacemaker, HTN, DM Current History ED via EMS c/o increased weakness, confusion, diarrhea Social History Home: Single Level Current Living Status: Spouse Entry Into Home: Stairs With Railing Steps Into Home: 2 ADL-Prior Level of Function SCALE: Activities may be completed with or without assistive devices. 4-Yzmicpivaa-orkuovp completes the activity by him/herself with no assistance from a helper. 5-Set-up or Clean-up Assistance-helper sets up or cleans up; patient completes activity. Sterling assists only prior to or following the activity. 4-Supervision or Touching Assistance-helper provides verbal cues and/or touching/steadying and/or contact guard assistance as patient completes activity. Assistance may be provided throughout the activity or intermittently. 3-Partial/Moderate Assistance-helper does LESS THAN HALF the effort. Sterling lifts, holds or supports trunk or limbs, but provides less than half the effort. 2-Substantial/Maximal Assistance-helper does MORE THAN HALF the effort. Sterling lifts or holds trunk or limbs and provides more than half the effort. 3-Jlzzxokyh-wbgyrw does ALL the effort. Patient does none of the effort to complete the activity. Or, the assistance of 2 or more helpers is required for the patient to complete the activity. If activity was not attempted, code reason: 7-Patient Refused. 9-Not Applicable-not attempted and the patient did not perform the activity before the current illness, exacerbation or injury. 10-Not Attempted due to Environmental Limitations-(lack of equipment, weather restraints, etc.). 88-Not Attempted due to Medical Conditions or Safety Concerns. ADL PLOF Comments Pt unable to provide information about PLOF. Pt's reports pt required total care at home, total assist with dressing and showering and moderate-max A with feeding. OT Current Status Subjective Pt in bed, at bedside. Pt pleasantly confused, agreeable to OT Tx. Pt had difficulty following instructions, and is at baseline with ADLs per report. Mental Status/Objective Patient Orientation: Person, Confused Current Upper Extremity ROM WFL, BUE shoulder flexion to approx 150 degrees, AAROM Upper Extremity Strength Grossly 4+/5 Other Treatments Pt in bed, reports pt requires total assistance with ADLS at PLOF. OT noted pt needed boosted towards HOB. OT cued pt for positioning of UEs to assist with scooting up in bed. Pt resistive to AAROM, but able to position hands on bedrail above head. Pt moved a couple inches towards HOB with max A from therapist. Assist x2 required to scoot up higher in the bed. Post tx, pt in bed, call light in reach and all needs met. OT Shelter Goals Electroplater Apprentice Goals 1=Demonstrate adherence to instructed precautions during ADL tasks. 2=Patient will verbalize/demonstrate understanding of assistive devices/modifications for ADL. 3=Patient will improve strength/tolerance for activity to enable patient to perform ADL's. OT Education/Plan Problem List/Assessment Assessment: No Skilled OT Needs ID'd No skilled OT services indicated at this time, as pt is at PLOF and dependent with all ADLS. d/c from OT. Discharge Recommendations Plan/Recommendations: Discharge/Goals Met Treatment Plan/Plan of Care Patient would benefit from OT for education, treatment and training to promote independence in ADL's, mobility, safety and/or upper extremity function for ADL's. Plan of Care: ADL Retraining, Functional Mobility, UE Funct Exercise/Act Treatment Duration: May 12, 2022 Frequency: 1 time per week (eval only) Rehab Potential: Poor Time/GCodes Start Time: 13:15 Stop Time: 13:28 Total Time Billed (hr/min): 13 Billed Treatment Time 1, JOSÉ TOBIN OT May 12, 2022 13:36
--- NOTE | 2022-05-12 14:47 | ST Dysphagia Evaluation ---
Speech Evaluation-General Medical Diagnosis Septic Shock Onset Date: May 10, 2022 Therapy Diagnosis Therapy Diagnosis: Mild Oral Dysphagia Precautions Precautions: Fall, Pressure Ulcer, Aspiration Precautions/Isolations: Aspiration, Fall Prevention, Standard Precautions, Pressure Ulcer Referral Referring Physician: Dr. Brown Reason for Referral: Evaluation/Treatment Medical History Current History The patient is an 87-year-old male with a history of dementia, atrial fibrillation, HTN, and diabetes, who presented to the ER via [facility] for concerns of increased weakness, confusion, fever, diarrhea. Reviewed History: Yes Social History Current Living Status: Spouse Speech PLF/Current-Dysphagia Prior Level of Function Per patient's , the patient consumes a regular consistency diet with thin liquids at home. The patient's stated the patient self-feeds the initial portion of the meal and she feeds him the final 50%. The patient's denied challenges or concerns with his oropharyngeal swallowing function. Due to the patient's dementia severity, he was unable to provide past medical history information to the clinician. Subjective The patient was lying in bed, awake and alert upon entrance to his room by the clinician. The patient greeted the clinician upon entrance to his room and was agreeable to participation in the clinical bedside swallowing evaluation. The patient was seated upright in bed for swallowing safety. Cognitive Status Patient Orientation: Confused Oral Motor Skills Dentition: Natural Ability to Follow Directions: Poor Oral Expression Ability: Severe Impairment Voice Voice Phonatory-Based Quality: Normal Voice Pitch: Normal Voice Loudness: Normal Face Facial Symmetry: Symmetrical The patient was unable to follow simple, one-step commands with maximum clinician verbal cueing or direct modeling to complete the oral mechanism evaluation. Oral-Facial Assessment Oral-Facial Dentition: Normal Labial Seal Description: Normal Smile: Normal Volitional Dry Swallow: No Voluntary Cough: No Can Clear Throat Volitionally: No Dysphagia Evaluation Consistencies Presented: Regular, Thin Liquid, Pureed Oral Phase: Reduced Oral Transit The patient displayed prolonged mastication of the solid consistency, requiring verbal cueing from the clinician for complete mastication and bolus formation. Laryngeal elevation was present to palpation. The patient was present with thin liquids via teaspoon, cup edge, and straw, puree, and solid consistencies. The patient does not display overt s/s of suspected aspiration with any consistency provided. The patient's vocal quality remained clear following each swallow. Dietary Recommendations: Mechanical Soft (Dysphagia three.) Liquid Recommendations: Thin Recommendations: - Dysphagia three consistency diet with thin liquids, as tolerated. - Fully upright and alert for P.O. intake. - Small, single bites and sips. - Meal set-up assistance and intermittent supervision. - Crush medication and place in puree for administration. - Remain upright for approximately thirty minutes following P.O. intake. - Monitor for s/s of suspected aspiration with P.O. intake. If demonstrated, contact speech pathology. The results and recommendations were provided to the RN, the patient's spouse, and the patient immediately following completion. Dysphagia Evaluation Summary The patient demonstrated oral dysphagia characterized by prolonged mastication of solid consistencies. Speech-Plan Treatment Plan Speech Therapy Treatment Plan: Discontinue ST Treatment Duration: May 12, 2022 Frequency: 1 time per week Estimated Hrs Per Day: .25 hour per day Rehab Potential: Poor Safety Risks/Education Teaching Recipient: Patient, Significant Other Teaching Methods: Discussion Response to Teaching: Verbalize Understanding, Reinforcement Needed Education Topics Provided: Results, Recommendations, Plan of Care, Swallowing Strategies Time Speech Therapy Time In: 12:20 Speech Therapy Time Out: 12:40 Total Billed Time: 20 Billed Treatment Time 1, EMIR CASSIDY ELIZABETH ST May 12, 2022 14:47
[2022-05-12] MEDS ORDERED: lisINopril 10 MG (PRINIVIL) TABLET PO SCH (17:00)
[2022-05-12] MEDS: MEMANTINE 10 MG (NAMENDA) TABLET PO SCH (17:17)
[2022-05-12] MEDS: cefTRIAXone 2,000 MG in NS (IVPB) 50 ML IV SCH (17:18)
[2022-05-12] MEDS: DONEPEZIL 10 MG (ARICEPT) TAB PO SCH (19:58)
[2022-05-12 23:50] VITALS: BP 158/89
[2022-05-13] VITALS (9 sets, daily range): BP systolic 136–185; BP diastolic 78–102
[2022-05-13] MEDS: POTASSIUM CL 10MEQ/50ML IVPB 50 ML IV SCH (04:27)
[2022-05-13] MEDS ORDERED: TROUGH ORDER-PHARMACY XX NR (04:30)
[2022-05-13 06:03] LABS: BASOPHILS % (AUTO) 0 % (0-10); MEAN CORPUSCULAR VOLUME 93 fL (80-99)
[2022-05-13 06:06] LABS: EOSINOPHILS # (AUTO) 0.2 10^3/uL (0.0-0.3); EOSINOPHILS % (AUTO) 2 % (0-10); HEMATOCRIT 45 % (40-54); HEMOGLOBIN 14.9 g/dL (13.3-17.7); LYMPHOCYTES # (AUTO) 1.1 10^3/uL (1.0-4.0); LYMPHOCYTES % (AUTO) 11 % (12-44); MEAN CORPUSCULAR HEMOGLOBIN 31 pg (25-34); MEAN CORPUSCULAR HGB CONC 33 g/dL (32-36); MEAN PLATELET VOLUME 8.7 fL (9.0-12.2); MONOCYTES % (AUTO) 10 % (0-12); NEUTROPHILS # (AUTO) 7.4 10^3/uL (1.8-7.8); NEUTROPHILS % (AUTO) 76 % (42-75); PLATELET COUNT 131 10^3/uL (130-400); WHITE BLOOD COUNT 9.7 10^3/uL (4.3-11.0)
[2022-05-13 06:11] LABS: ALBUMIN 3.1 GM/DL (3.2-4.5); POTASSIUM 3.5 MMOL/L (3.6-5.0)
[2022-05-13 06:12] LABS: CALCIUM 8.6 MG/DL (8.5-10.1)
[2022-05-13 06:13] LABS: TOTAL PROTEIN 5.9 GM/DL (6.4-8.2)
[2022-05-13 06:15] LABS: INR 2.7 (0.8-1.4); PROTHROMBIN TIME PATIENT 29.1 SEC (12.2-14.7)
[2022-05-13 06:15] LABS: BILIRUBIN,TOTAL 0.6 MG/DL (0.1-1.0)
[2022-05-13] MEDS: KCL 20 MEQ TAB (K-DUR) PO SCH (06:16)
[2022-05-13 06:17] LABS: CREATININE SERUM 0.79 MG/DL (0.60-1.30)
[2022-05-13 06:20] LABS: MAGNESIUM 1.8 MG/DL (1.6-2.4)
[2022-05-13] MEDS: MAGNESIUM 1 GM/100 ML IVPB 100 ML IV SCH (06:22)
[2022-05-13] MEDS ORDERED: lisINopril 20 MG (PRINIVIL) TABLET PO NR (08:00)
--- NOTE | 2022-05-13 08:31 | Progress Note - Cardiology ---
Cardiology SOAP Progress Note Objective: I&O/Vital Signs 05/12/22 05/12/22 05/13/22 05/13/22 23:40 23:50 03:30 03:31 Temp 36.9 36.0 Pulse 100 83 Resp 20 20 B/P (MAP) 158/89 (112) 161/78 (105) Pulse Ox 96 93 O2 Delivery Room Air Room Air Room Air Room Air 05/13/22 05/13/22 05/13/22 07:17 08:05 08:12 Temp 36.4 36.4 Pulse 81 66 Resp 18 B/P (MAP) 185/92 (123) Pulse Ox 95 94 94 O2 Delivery Room Air Room Air O2 Flow Rate 0.00 FiO2 21 05/13/22 00:00 Intake Total 120 ml Output Total 2275 ml Balance -2155 ml Weight (Pounds): 155 Weight (Ounces): 5.0 Weight (Calculated Kilograms): 70.458755 Constitutional: No AAO x 3; other (more alert today, responsive to questions, oriented to self only) Respiratory: No accessory muscle use, No respiratory distress; chest expansion is symmetric, chest is bilaterally symmetric, other (diminished bases with poor inspiratory effort) Cardiovascular: regular rate-rhythm; No JVD; S1 and S2, systolic murmur Gastrointestional: No tender; soft, round, audible bowel sounds Extremities: no lower extremity edema bilateral Neurologic/Psychiatric: other (moves all limbs equally) Skin: normal color, warm/dry Results/Procedures: Labs Laboratory Tests 05/13/22 05:35: White Blood Count 9.7, Red Blood Count 4.79, Hemoglobin 14.9, Hematocrit 45, Mean Corpuscular Volume 93, Mean Corpuscular Hemoglobin 31, Mean Corpuscular Hemoglobin Concent 33, Red Cell Distribution Width 13.5, Platelet Count 131, Mean Platelet Volume 8.7L, Immature Granulocyte % (Auto) 1, Neutrophils (%) (Auto) 76H, Lymphocytes (%) (Auto) 11L, Monocytes (%) (Auto) 10, Eosinophils (%) (Auto) 2, Basophils (%) (Auto) 0, Neutrophils # (Auto) 7.4, Lymphocytes # (Auto) 1.1, Monocytes # (Auto) 1.0, Eosinophils # (Auto) 0.2, Basophils # (Auto) 0.0, Immature Granulocyte # (Auto) 0.1, Percent Immature Platelet Fraction 1.2, Prothrombin Time 29.1H, INR Comment 2.7H 05/13/22 05:36: Sodium Level 138, Potassium Level 3.5L, Chloride Level 103, Carbon Dioxide Level 23, Anion Gap 12, Blood Urea Nitrogen 7, Creatinine 0.79, Estimat Glomerular Filtration Rate 86, BUN/Creatinine Ratio 9, Glucose Level 149H, Calcium Level 8.6, Corrected Calcium 9.3, Phosphorus Level 2.0L, Magnesium Level 1.8, Total Bilirubin 0.6, Aspartate Amino Transf (AST/SGOT) 19, Alanine Aminotransferase (ALT/SGPT) 17, Alkaline Phosphatase 53, Total Protein 5.9L, Albumin 3.1L Microbiology 05/10/22 MRSA Screen - Final, Complete MRSA not isolated 05/10/22 Blood Culture - Preliminary, Resulted No growth 05/10/22 Urine Culture - Final, Complete Escherichia coli Laboratory Tests 05/12/22 04:24 05/13/22 05:35 05/13/22 05:36 A/P: Assessment: UTI with sepsis - management per medical services Chronic, mod, exertional shortness of breath - MPI of Jul 22, 2020: No evidence of significant myocardial ischemia or infarction on this study. Normal regional wall motion. Normal global left ventricular systolic function with a calculated ejection fraction of 64%. - Echocardiogram of Jul 23, 2020 showed LVEF 60-65%. PASP 25-30mmHg. Mild TR Symptomatic sinus node dysfunction. - History of paroxysmal atrial flutter for which he has undergone ablation with Dr Nicole in Jun 2015 but has since had recurrence of A fib - Chronic warfarin anticoagulation for stroke prophylaxis being followed by Dr. Hughes. - Amb card monitoring of 03/23-04/06/17 shows PSVT/PAF and also episodes of vent asystolic pauses of up to 5.2 seconds. The longest pause occurred when he was awake S/P - Biotronik dual chamber PPM implant on 04-15-17 - functioning normally per interrogation of 02/17/22 and per telemetry during this admission CAD - Angiographically mild coronary artery disease on cardiac catheterization of April 2010. - MPI of Jul 22, 2020: No evidence of significant myocardial ischemia or infarction on this study. Normal regional wall motion. Normal global left ventricular systolic function with a calculated ejection fraction of 64%. Hyperlipidemia, -being treated with lovastatin - being followed by Dr. Hughes. Maturity onset diabetes mellitus. 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
--- NOTE | 2022-05-13 08:41 | Progress Note - Cardiology ---
Cardiology SOAP Progress Note Subjective: Does not report cp or palp or syncope or shortness of breath or n/v/d History is not reliable due to dementia Objective: I&O/Vital Signs 05/12/22 05/12/22 05/13/22 05/13/22 23:40 23:50 03:30 03:31 Temp 36.9 36.0 Pulse 100 83 Resp 20 20 B/P (MAP) 158/89 (112) 161/78 (105) Pulse Ox 96 93 O2 Delivery Room Air Room Air Room Air Room Air 05/13/22 05/13/22 05/13/22 07:17 08:05 08:12 Temp 36.4 36.4 Pulse 81 66 Resp 18 B/P (MAP) 185/92 (123) Pulse Ox 95 94 94 O2 Delivery Room Air Room Air O2 Flow Rate 0.00 FiO2 05/13/22 00:00 Intake Total 120 ml Output Total 2275 ml Balance -2155 ml Weight (Pounds): 155 Weight (Ounces): 5.0 Weight (Calculated Kilograms): 70.235040 Constitutional: other Respiratory: chest expansion is symmetric, chest is bilaterally symmetric, other Cardiovascular: regular rate-rhythm, S1 and S2, systolic murmur Gastrointestional: soft, round, audible bowel sounds Extremities: no lower extremity edema bilateral Neurologic/Psychiatric: other Skin: normal color, warm/dry Results/Procedures: Labs Laboratory Tests 05/13/22 05:35: White Blood Count 9.7, Red Blood Count 4.79, Hemoglobin 14.9, Hematocrit 45, Mean Corpuscular Volume 93, Mean Corpuscular Hemoglobin 31, Mean Corpuscular Hemoglobin Concent 33, Red Cell Distribution Width 13.5, Platelet Count 131, Mean Platelet Volume 8.7L, Immature Granulocyte % (Auto) 1, Neutrophils (%) (Auto) 76H, Lymphocytes (%) (Auto) 11L, Monocytes (%) (Auto) 10, Eosinophils (%) (Auto) 2, Basophils (%) (Auto) 0, Neutrophils # (Auto) 7.4, Lymphocytes # (Auto) 1.1, Monocytes # (Auto) 1.0, Eosinophils # (Auto) 0.2, Basophils # (Auto) 0.0, Immature Granulocyte # (Auto) 0.1, Percent Immature Platelet Fraction 1.2, Prothrombin Time 29.1H, INR Comment 2.7H 05/13/22 05:36: Sodium Level 138, Potassium Level 3.5L, Chloride Level 103, Carbon Dioxide Level 23, Anion Gap 12, Blood Urea Nitrogen 7, Creatinine 0.79, Estimat Glomerular Filtration Rate 86, BUN/Creatinine Ratio 9, Glucose Level 149H, Calcium Level 8.6, Corrected Calcium 9.3, Phosphorus Level 2.0L, Magnesium Level 1.8, Total Bilirubin 0.6, Aspartate Amino Transf (AST/SGOT) 19, Alanine Aminotransferase (ALT/SGPT) 17, Alkaline Phosphatase 53, Total Protein 5.9L, Albumin 3.1L Microbiology 05/10/22 MRSA Screen - Final, Complete MRSA not isolated 05/10/22 Blood Culture - Preliminary, Resulted No growth 05/10/22 Urine Culture - Final, Complete Escherichia coli Laboratory Tests 05/12/22 04:24 05/13/22 05:35 05/13/22 05:36 A/P: Assessment: UTI with sepsis - management per medical services Chronic, mod, exertional shortness of breath - MPI of Jul 22, 2020: No evidence of significant myocardial ischemia or infarction on this study. Normal regional wall motion. Normal global left ventricular systolic function with a calculated ejection fraction of 64%. - Echocardiogram of Jul 23, 2020 showed LVEF 60-65%. PASP 25-30mmHg. Mild TR Symptomatic sinus node dysfunction. - History of paroxysmal atrial flutter for which he has undergone ablation with Dr Nicole in Jun 2015 but has since had recurrence of A fib - Chronic warfarin anticoagulation for stroke prophylaxis being followed by Dr. Hughes. - Amb card monitoring of 03/23-04/06/17 shows PSVT/PAF and also episodes of vent asystolic pauses of up to 5.2 seconds. The longest pause occurred when he was awake S/P - Biotronik dual chamber PPM implant on 04-15-17 - functioning normally per interrogation of 02/17/22 and per telemetry during this admission CAD - Angiographically mild coronary artery disease on cardiac catheterization of April 2010. - MPI of Jul 22, 2020: No evidence of significant myocardial ischemia or infarction on this study. Normal regional wall motion. Normal global left ventricular systolic function with a calculated ejection fraction of 64%. Hyperlipidemia, -being treated with lovastatin - being followed by Dr. Hughes. Maturity onset diabetes mellitus. - followed by PCP Carotid dz: - Mild to mod, bilateral carotid arterial disease per carotid ultrasound of February 2020 Chronic intermittent dizziness - of undetermined etiology Dementia Plan: UTI with sepsis - management of sepsis per medical/eICU services Previously hypotensive - now he is hypertensive - adjust antihypertensive regimen OAC - INR down to therapeutic range. Resuem warfarin CAD - continue ASA Monitor lab - replace SURYA CAMPUZANO MD FACP FAC CCDS May 13, 2022 08:41
[2022-05-13] MEDS ORDERED: KCL 20 MEQ TAB (K-DUR) PO NR (09:00)
[2022-05-13] MEDS: DOCUSATE SODIUM 100 MG (COLACE) CAP PO SCH ×3 (10:01→20:50)
[2022-05-13] MEDS: SENNOSIDES 8.6 MG (SENOKOT) TAB PO SCH ×2 (10:01→20:52)
[2022-05-13] MEDS: ASPIRIN E.C. 81 MG (ECOTRIN) TAB PO SCH ×2 (10:01→10:10)
[2022-05-13] MEDS: NS IV 1000 ML 1,000 ML IV SCH (10:02)
--- NOTE | 2022-05-13 10:59 | Physical Therapy Daily Note ---
PT Daily Note-Current Subjective Patient's spouse agrees to PT. Patient is very confused and does not follow direction and has to have tactile/physical cues to complete tasks. Transfers SCALE: Activities may be completed with or without assistive devices. 7-Sgwgqspizo-cpdkqil completes the activity by him/herself with no assistance from a helper. 5-Set-up or Clean-up Assistance-helper sets up or cleans up; patient completes activity. [place] assists only prior to or following the activity. 4-Supervision or Touching Assistance-helper provides verbal cues and/or touching/steadying and/or contact guard assistance as patient completes activity. Assistance may be provided throughout the activity or intermittently. 3-Partial/Moderate Assistance-helper does LESS THAN HALF the effort. [place] lifts, holds or supports trunk or limbs, but provides less than half the effort. 2-Substantial/Maximal Assistance-helper does MORE THAN HALF the effort. [place] lifts or holds trunk or limbs and provides more than half the effort. 1-Betevegpm-rzzwra does ALL the effort. Patient does none of the effort to complete the activity. Or, the assistance of 2 or more helpers is required for the patient to complete the activity. If activity was not attempted, code reason: 7-Patient Refused. 9-Not Applicable-not attempted and the patient did not perform the activity before the current illness, exacerbation or injury. 10-Not Attempted due to Environmental Limitations-(lack of equipment, weather restraints, etc.). 88-Not Attempted due to Medical Conditions or Safety Concerns. Lying to Sitting/Side of Bed(Q: 1 Sit to Stand (QC): 2 Chair/Zdu-jf-Fpodb Xfer(QC): 2 Gait Training Distance: 25' x 2 Walk 10 feet (QC): 1 (x 2) Gait Assistive Device: FWW Patient had increased difficulty with negotiating FWW and with PROBATION WORKER. Assessment Patient incontinent BM requiring dependent assist to cleanse patient. Patient is very resistive with all mobility and is unsafe with and without FWW use. Patient is unable to follow simple direction. Patient up in recliner with chair alarm activated. Plan to dismiss to [place] this week. PT Coffee Shop Aide Goals Coffee Shop Aide Goals PT Half-Way Goals Time Frame: May 19, 2022 Roll Left & Right (QC): 3 Sit to Lying (QC): 3 Lying-Sitting on Side/Bed(QC): 3 Sit to Stand (QC): 3 Chair/Cfe-uw-Ijlqa Xfer(QC): 3 Walk 10 feet (QC): 3 Walk 50ft with 2 Turns (QC): 3 PT Plan Treatment/Plan Treatment Plan: Continue Plan of Care Treatment Plan: Bed Mobility, Education, Functional Activity Radha, Functional Strength, Gait, Safety, Therapeutic Exercise, Transfers Treatment Duration: May 19, 2022 Frequency: 6 times per week Estimated Hrs Per Day: .25 hour per day Patient and/or Family Agrees t: Yes Time/GCodes Time In: 1030 Time Out: 1053 Total Billed Treatment Time: 23 Total Billed Treatment 1 visit FA x 2 23 min HIRAL PEARL PT May 13, 2022 10:59
--- NOTE | 2022-05-13 12:42 | Progress Note ---
PANDA YI 05/13/22 1242: Subjective Subjective/Events-last exam Adin Campo is an 87yoM who presented with septic shock, UTI, and gram negative bacteremia. Today he was alert and responsive to my questions. Pt feels better than yesterday and denies any pain, fever, chills, nausea, or vomiting. Pt reports return of appetite and is awaiting breakfast. Review of Systems General: No Chills, No Night Sweats HEENT: No Head Aches Pulmonary: No Dyspnea; Cough (intermittent cough, not painful) Cardiovascular: No: Chest Pain, Edema Gastrointestinal: No: Nausea, Vomiting, Abdominal Pain Genitourinary: No Dysuria, No Retention Neurological: No: Change in speech, Seizures Focused Exam Lactate Level 05/10/22 20:05: Lactic Acid Level 2.05*H 05/10/22 22:05: Lactic Acid Level 2.27*H 05/11/22 04:06: Lactic Acid Level 1.97 Time of Focused Exam: 20:40 Respiratory: Chest Non Tender, Lungs Clear, Normal Breath Sounds, No Accessory Muscle Use, No Respiratory Distress Cardiovascular: Regular Rate, Rhythm, No Edema, No Gallop, No JVD, No Murmur, Normal Peripheral Pulses Peripheral Pulses: 2+ Radial Pulses (R), 2+ Radial Pulses (L) Skin: normal color, warm/dry; No jaundice Objective Exam Last Set of Vital Signs Vital Signs Date Time Temp Pulse Resp B/P (MAP) Pulse Ox O2 Delivery O2 Flow Rate FiO2 05/13/22 11:05 36.4 120 18 136/94 (108) 96 Room Air 05/13/22 08:12 21 05/13/22 08:05 0.00 Capillary Refill : Less Than 3 Seconds I&O Intake and Output 05/13/22 00:00 Intake Total 570 ml Output Total 2975 ml Balance -2405 ml Intake Oral 120 ml IV Total 450 ml Output Urine Total 2975 ml General: Alert, Cooperative, No Acute Distress HEENT: Atraumatic, EOMI Neck: Supple, No JVD Lungs: Clear to Auscultation, Normal Air Movement Heart: Regular Rate, Normal S1, Normal S2, No Murmurs Abdomen: Normal Bowel Sounds, Soft, No Tenderness Extremities: No Clubbing, No Cyanosis, No Edema Neuro: Normal Speech Psych/Mental Status: Mental Status NL, Mood NL Results Lab Laboratory Tests 05/13/22 05:35: White Blood Count 9.7, Red Blood Count 4.79, Hemoglobin 14.9, Hematocrit 45, Mean Corpuscular Volume 93, Mean Corpuscular Hemoglobin 31, Mean Corpuscular Hemoglobin Concent 33, Red Cell Distribution Width 13.5, Platelet Count 131, Mean Platelet Volume 8.7L, Immature Granulocyte % (Auto) 1, Neutrophils (%) (Auto) 76H, Lymphocytes (%) (Auto) 11L, Monocytes (%) (Auto) 10, Eosinophils (%) (Auto) 2, Basophils (%) (Auto) 0, Neutrophils # (Auto) 7.4, Lymphocytes # (Auto) 1.1, Monocytes # (Auto) 1.0, Eosinophils # (Auto) 0.2, Basophils # (Auto) 0.0, Immature Granulocyte # (Auto) 0.1, Percent Immature Platelet Fraction 1.2, Prothrombin Time 29.1H, INR Comment 2.7H 05/13/22 05:36: Sodium Level 138, Potassium Level 3.5L, Chloride Level 103, Carbon Dioxide Level 23, Anion Gap 12, Blood Urea Nitrogen 7, Creatinine 0.79, Estimat Glomerular Filtration Rate 86, BUN/Creatinine Ratio 9, Glucose Level 149H, Calcium Level 8.6, Corrected Calcium 9.3, Phosphorus Level 2.0L, Magnesium Level 1.8, Total Bilirubin 0.6, Aspartate Amino Transf (AST/SGOT) 19, Alanine Aminotransferase (ALT/SGPT) 17, Alkaline Phosphatase 53, Total Protein 5.9L, Albumin 3.1L Microbiology 05/10/22 MRSA Screen - Final, Complete MRSA not isolated 05/10/22 Blood Culture - Preliminary, Resulted No growth 05/10/22 Urine Culture - Final, Complete Escherichia coli Assessment/Plan Assessment/Plan Assess & Plan/Chief Complaint Sepsis Sensitivites back. Switch to oral cephalosporin that can be crushed due to pts aphagia UTI Switch to oral abx for dc Gram negative bacteremia switch to oral abx for dc HTN 185/92 this morning, continue metoprolol and lisinopril. Hydralazine prn Elevated INR Down to 2.7 today. continue warfarin Lactic acidosis resolved. last was 1.97 Hx of Afib Continue home metoprolol and warfarin for stroke prophylaxis Dementia Continue home donepezil and memantine Final Diagnosis sepsis due to e coli uti with gram negative bacteremia Clinical Quality Measures Admission Status Admission Dx Septic shock Fever, tachycardia, elevated WBC count, lactic acid >4. Continue IV cefepime and vancomycin. Await culture and sensitivity. Continue IV fluids. Monitor BP, most recent 108/65 UTI E coli in urine with positive nitrites, LE, WBCs, and large bacteria on UA. Continue IV abx and fluids Gram Negative Bacteremia Confirmed by blood culture, awaiting results with sensitivity. Continue IV abx and fluids Lactic acidosis Continue IV fluids. Lactic acid was 1.97 this morning Hypomagnesemia 1.5 this morning. Given Mg sulfate IV. Afib Keep HR controlled, not currently tachycardic. Elevated INR Warfarin held due to INR of 4.0. Monitor for lowering to therapeutic level. T2DM Glucose 207 as of this morning. Continue accuchecks. Consider sliding scale if persistent elevation. CAD Hold antihypertensives due to episode of hypotension last night RACHEL BOSS MD 05/13/22 1553: Subjective Date Seen by a Provider: May 13, 2022 Time Seen by a Provider: 10:30 Assessment/Plan Assessment/Plan Assess & Plan/Chief Complaint Treating E coli UTI and bacteremia. Transitioned to Rocephin. Will switch to oral Keflex suspension. Increase Lisinopril due to HTN. Continue warfarin. SW assisting with discharge planning, pending approval. Diagnosis/Problems Diagnosis/Problems (1) E. coli UTI Status: Acute (2) E coli bacteremia Status: Acute (3) HTN (hypertension) Status: Acute Qualifiers: Qualified Codes: I10 - Essential (primary) hypertension (4) Dementia Status: Acute (5) Debility Status: Acute Supervisory-Addendum Brief Verification & Attestation Participated in pt care: history, MDM, physical Personally performed: exam, history, MDM, supervision of care Care discussed with: Medical Student Procedures: n/a Results interpretation: Verified all documentation A medical student performed and documented this service in my presence. I reviewed and verified all information documented by the medical student and made modifications to such information, when appropriate. I personally performed the physical exam and medical decision making. PANDA YI May 13, 2022 12:42 RACHEL BOSS MD May 13, 2022 15:53
[2022-05-13] MEDS: cefTRIAXone 2,000 MG in NS (IVPB) 50 ML IV SCH (16:36)
[2022-05-13] MEDS ORDERED: lisINopril 20 MG (PRINIVIL) TABLET PO SCH (17:00)
[2022-05-13] MEDS ORDERED: lisINopril 10 MG (PRINIVIL) TABLET PO SCH (17:00)
[2022-05-13] MEDS: MEMANTINE 10 MG (NAMENDA) TABLET PO SCH (17:06)
[2022-05-13] MEDS ORDERED: warFARin 5 MG (COUMADIN) TAB PO SCH (18:00)
[2022-05-13] MEDS: DONEPEZIL 10 MG (ARICEPT) TAB PO SCH (21:32)
[2022-05-14 03:37] VITALS: BP 167/106
[2022-05-14 05:23] LABS: MEAN CORPUSCULAR HEMOGLOBIN 31 pg (25-34); MEAN CORPUSCULAR HGB CONC 34 g/dL (32-36); MEAN CORPUSCULAR VOLUME 92 fL (80-99)
[2022-05-14 05:24] LABS: BASOPHILS # (AUTO) 0.1 10^3/uL (0.0-0.1); BASOPHILS % (AUTO) 1 % (0-10); EOSINOPHILS # (AUTO) 0.1 10^3/uL (0.0-0.3); EOSINOPHILS % (AUTO) 1 % (0-10); HEMATOCRIT 46 % (40-54); HEMOGLOBIN 15.6 g/dL (13.3-17.7); LYMPHOCYTES % (AUTO) 10 % (12-44); MEAN PLATELET VOLUME 9.1 fL (9.0-12.2); MONOCYTES % (AUTO) 10 % (0-12); NEUTROPHILS # (AUTO) 7.7 10^3/uL (1.8-7.8); NEUTROPHILS % (AUTO) 78 % (42-75); PLATELET COUNT 140 10^3/uL (130-400); WHITE BLOOD COUNT 9.9 10^3/uL (4.3-11.0)
[2022-05-14 05:44] LABS: ALBUMIN 3.2 GM/DL (3.2-4.5); BILIRUBIN,TOTAL 0.7 MG/DL (0.1-1.0); CALCIUM 8.9 MG/DL (8.5-10.1); CREATININE SERUM 0.73 MG/DL (0.60-1.30); MAGNESIUM 1.7 MG/DL (1.6-2.4); PHOSPHORUS 1.7 MG/DL (2.3-4.7); POTASSIUM 3.6 MMOL/L (3.6-5.0); TOTAL PROTEIN 6.5 GM/DL (6.4-8.2)
[2022-05-14] MEDS: KCL 20 MEQ TAB (K-DUR) PO SCH (06:06)
[2022-05-14] MEDS: POTASSIUM CL 10MEQ/50ML IVPB 50 ML IV SCH (06:08)
[2022-05-14] MEDS: MAGNESIUM 1 GM/100 ML IVPB 100 ML IV SCH (06:09)
[2022-05-14] MEDS ORDERED: POTASSIUM CL 10MEQ/50ML IVPB 50 ML IV SCH (06:15)
[2022-05-14] MEDS ORDERED: MAGNESIUM 1 GM/100 ML IVPB 100 ML IV SCH (06:15)
[2022-05-14 06:59] LABS: PROTHROMBIN TIME PATIENT 22.9 SEC (12.2-14.7)
[2022-05-14 07:18] VITALS: BP 148/79
[2022-05-14] MEDS ORDERED: ASPIRIN 81 MG CHEW (CHILDREN'S ASA) PO NR (09:30)
[2022-05-14] MEDS ORDERED: meTOprolol TARTRATE 25 MG (LOPRESSOR) TABLET PO NR (09:30)
[2022-05-14] MEDS ORDERED: METO-333 PO (09:51)
[2022-05-14] MEDS ORDERED: CEPH125S PO (09:51)
[2022-05-14] MEDS ORDERED: METF-397 PO (09:51)
[2022-05-14] MEDS ORDERED: DONE10TA41 PO (09:51)
[2022-05-14] MEDS ORDERED: MEMA10TA57 PO (09:51)
[2022-05-14] MEDS ORDERED: ASPI-999 PO (09:51)
[2022-05-14] MEDS ORDERED: LOVA20TA2 PO (09:51)
[2022-05-14] MEDS ORDERED: WRF5T PO (09:51)
[2022-05-14] MEDS ORDERED: GLIP5TAB13 PO (09:51)
[2022-05-14] MEDS ORDERED: LISI20TA26 PO (09:51)
--- NOTE | 2022-05-14 09:53 | Discharge Inst-Skilled Nursing ---
Discharge Inst-Skilled NF Reconcile Patient Problems Problems Reviewed?: Yes Patient Instructions Patient Instructions: see instructions Consult/Follow Up/Orders Follow Up Appt.: next alf rounds Skilled NF Admit to: [facility] Certification (SNF) I certify that SNF services are required to be given on an inpatient basis because of the above named patient's need for group home care on a continuing basis for the conditions(s) for which he/she was receiving inpatient hospital services prior to his/her transfer to the SNF. Snf Facility Order: Nursing Services, Cemetery Manager-Evaluate & Treat, Physical Therapy-Evaluate & Treat, Speech Language-Evaluate & Treat Oxygen Delivery Method: Room Air Discharge Diet: Low Sodium Diet Daily Activity as Tolerated: Yes Resuscitation Status: Full Code New & Resume Previous Orders Nuris Boss May 14, 2022 09:52 NURIS BOSS MD May 14, 2022 09:53
--- NOTE | 2022-05-14 09:58 | Progress Note - Cardiology ---
Cardiology SOAP Progress Note Subjective: Verbally unresponsive Does not report any symptoms Objective: I&O/Vital Signs 05/13/22 05/14/22 05/14/22 05/14/22 23:20 03:37 07:18 08:00 Temp 37.2 37.4 37.4 Pulse 95 97 99 Resp 20 20 18 B/P (MAP) 157/87 (110) 167/106 (126) 148/79 (102) Pulse Ox 95 95 97 O2 Delivery Room Air Room Air Room Air Room Air FiO2 95 05/14/22 00:00 Intake Total 710 ml Output Total 303 ml Balance 407 ml Weight (Pounds): 155 Weight (Ounces): 5.0 Weight (Calculated Kilograms): 70.277615 Constitutional: other (verbally unresponsive) Respiratory: chest expansion is symmetric, chest is bilaterally symmetric, other Cardiovascular: regular rate-rhythm, S1 and S2, systolic murmur Gastrointestional: soft, round, audible bowel sounds Extremities: no lower extremity edema bilateral Neurologic/Psychiatric: other Skin: normal color, warm/dry; No jaundice Results/Procedures: Labs Laboratory Tests 05/14/22 05:16: White Blood Count 9.9, Red Blood Count 4.97, Hemoglobin 15.6, Hematocrit 46, Mean Corpuscular Volume 92, Mean Corpuscular Hemoglobin 31, Mean Corpuscular Hemoglobin Concent 34, Red Cell Distribution Width 13.4, Platelet Count 140, Mean Platelet Volume 9.1, Immature Granulocyte % (Auto) 0, Neutrophils (%) (Auto) 78H, Lymphocytes (%) (Auto) 10L, Monocytes (%) (Auto) 10, Eosinophils (%) (Auto) 1, Basophils (%) (Auto) 1, Neutrophils # (Auto) 7.7, Lymphocytes # (Auto) 1.0, Monocytes # (Auto) 1.0, Eosinophils # (Auto) 0.1, Basophils # (Auto) 0.1, Immature Granulocyte # (Auto) 0.0, Percent Immature Platelet Fraction 1.1, Prothrombin Time 22.9H, INR Comment 2.0H, Sodium Level 138, Potassium Level 3.6, Chloride Level 102, Carbon Dioxide Level 22, Anion Gap 14, Blood Urea Nitrogen 6L, Creatinine 0.73, Estimat Glomerular Filtration Rate 88, BUN/Creatinine Ratio 8, Glucose Level 187H, Calcium Level 8.9, Corrected Calcium 9.5, Phosphorus Level 1.7L, Magnesium Level 1.7, Total Bilirubin 0.7, Aspartate Amino Transf (AST/SGOT) 17, Alanine Aminotransferase (ALT/SGPT) 18, Alkaline Phosphatase 54, Total Protein 6.5, Albumin 3.2 Microbiology 05/10/22 MRSA Screen - Final, Complete MRSA not isolated 05/10/22 Blood Culture - Preliminary, Resulted No growth 05/10/22 Urine Culture - Final, Complete Escherichia coli Laboratory Tests 05/13/22 05:35 05/13/22 05:36 05/14/22 05:16 A/P: Assessment: UTI with sepsis - management per medical services Chronic, mod, exertional shortness of breath - MPI of Jul 22, 2020: No evidence of significant myocardial ischemia or infarction on this study. Normal regional wall motion. Normal global left ventricular systolic function with a calculated ejection fraction of 64%. - Echocardiogram of Jul 23, 2020 showed LVEF 60-65%. PASP 25-30mmHg. Mild TR Symptomatic sinus node dysfunction. - History of paroxysmal atrial flutter for which he has undergone ablation with Dr Nicole in Jun 2015 but has since had recurrence of A fib - Chronic warfarin anticoagulation for stroke prophylaxis being followed by Dr. Hughes. - Amb card monitoring of 03/23-04/06/17 shows PSVT/PAF and also episodes of vent asystolic pauses of up to 5.2 seconds. The longest pause occurred when he was awake S/P - Biotronik dual chamber PPM implant on 04-15-17 - functioning normally per interrogation of 02/17/22 and per telemetry during this admission CAD - Angiographically mild coronary artery disease on cardiac catheterization of April 2010. - MPI of Jul 22, 2020: No evidence of significant myocardial ischemia or infarction on this study. Normal regional wall motion. Normal global left ventricular systolic function with a calculated ejection fraction of 64%. Hyperlipidemia, -being treated with lovastatin - being followed by Dr. Hughes. Maturity onset diabetes mellitus. 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 Resume warfarin - monitor labs CAD - continue SURYA ELLIOTT MD FACP FACC CCDS May 14, 2022 09:58
[2022-05-14 11:08] VITALS: BP 150/80
--- NOTE | 2022-05-14 20:42 | Discharge Summary ---
Discharge Summary Hospital Course Problems/Dx: (1) E. coli UTI Status: Acute (2) E coli bacteremia Status: Acute (3) HTN (hypertension) Status: Acute Qualifiers: Qualified Codes: I10 - Essential (primary) hypertension (4) Dementia Status: Acute (5) Debility Status: Acute (6) Septic shock Status: Resolved (7) Lactic acidosis Status: Resolved (8) Supratherapeutic INR Status: Resolved (9) JOVANNY (acute kidney injury) Status: Resolved (10) On Coumadin for atrial fibrillation Status: Chronic Hospital Course Date of Admission: May 10, 2022 at 20:59 Admission Diagnosis : Septic shock Family Physician/Provider: Yosvany Hughes DO Date of Discharge: 05/14/22 Discharge Diagnosis: Septic shock due to E coli UTI and bacteremia Hospital Course: Adin Campo is an 87 year old male who was admitted with septic shock. He was started on IV antibiotics. A urinalysis revealed a urinary tract infection. His blood cultures revealed E coli bacteremia. His urine culture also grew E coli. He had a lactic acidosis and acute kidney injury which resolved with IV fluids. His shock also resolved with fluid resuscitation. He was transitioned to oral Keflex to complete his course of antibiotics. He had issues with dysphagia and debility. He worked with PT/OT/ST while inpatient and will continue at the [facility] facility. He was discharged in stable condition to [facility]. Labs and Pending Lab Test: Laboratory Tests 05/14/22 05:16: White Blood Count 9.9, Red Blood Count 4.97, Hemoglobin 15.6, Hematocrit 46, Mean Corpuscular Volume 92, Mean Corpuscular Hemoglobin 31, Mean Corpuscular Hemoglobin Concent 34, Red Cell Distribution Width 13.4, Platelet Count 140, Mean Platelet Volume 9.1, Immature Granulocyte % (Auto) 0, Neutrophils (%) (Auto) 78H, Lymphocytes (%) (Auto) 10L, Monocytes (%) (Auto) 10, Eosinophils (%) (Auto) 1, Basophils (%) (Auto) 1, Neutrophils # (Auto) 7.7, Lymphocytes # (Auto) 1.0, Monocytes # (Auto) 1.0, Eosinophils # (Auto) 0.1, Basophils # (Auto) 0.1, Immature Granulocyte # (Auto) 0.0, Percent Immature Platelet Fraction 1.1, Prothrombin Time 22.9H, INR Comment 2.0H, Sodium Level 138, Potassium Level 3.6, Chloride Level 102, Carbon Dioxide Level 22, Anion Gap 14, Blood Urea Nitrogen 6L, Creatinine 0.73, Estimat Glomerular Filtration Rate 88, BUN/Creatinine Ratio 8, Glucose Level 187H, Calcium Level 8.9, Corrected Calcium 9.5, Phosphorus Level 1.7L, Magnesium Level 1.7, Total Bilirubin 0.7, Aspartate Amino Transf (AST/SGOT) 17, Alanine Aminotransferase (ALT/SGPT) 18, Alkaline Phosphatase 54, Total Protein 6.5, Albumin 3.2 Microbiology 05/10/22 MRSA Screen - Final, Complete MRSA not isolated 05/10/22 Blood Culture - Preliminary, Resulted No growth 05/10/22 Urine Culture - Final, Complete Escherichia coli Home Meds Active Cephalexin 125 Mg/5 Ml Susp.recon 250 Mg PO TID 10 Days Lisinopril 20 Mg Tablet 20 Mg PO 1700 30 Days Aspirin 81 Mg Tab.chew 81 Mg PO DAILY 30 Days Metoprolol Tartrate 25 Mg Tablet 25 Mg PO BID 30 Days Lovastatin 20 Mg Tablet 20 Mg PO 1700 30 Days Memantine HCl 10 Mg Tablet 10 Mg PO 1700 30 Days Metformin HCl 500 Mg Tablet 500 Mg PO 1700 30 Days Glipizide 5 Mg Tablet 5 Mg PO 1700 30 Days Donepezil HCl 10 Mg Tablet 10 Mg PO HS 30 Days Jantoven (Warfarin Sodium) 5 Mg Tablet 5 Mg PO CHAMBERLAIN,TU,TH,SA @1700 30 Days TAKE 5 MG TU//SAT/SUN AND 2.5 MG MON/TUE/TUE Assessment/Pt Instructions See instructions Discharge Planning: >30 minutes discharge planning Discharge Instructions Discharge Diet: Other Diet (Dysphagaia diet) Activity as Tolerated: Yes Discharge Physical Examination Vital Signs Vital Signs Date Time Temp Pulse Resp B/P (MAP) Pulse Ox O2 Delivery O2 Flow Rate FiO2 05/14/22 11:08 37.4 85 18 150/80 (103) 97 Room Air 05/14/22 08:00 95 05/13/22 08:05 0.00 General Appearance: No Apparent Distress, WD/WN Respiratory: Lungs Clear, No Respiratory Distress Cardiovascular: Regular Rate, Rhythm, No Murmur Gastrointestinal: Normal Bowel Sounds, Soft Extremity: Normal Inspection, No Pedal Edema Skin: Normal Color, Warm/Dry Neurologic/Psychiatric: Alert, Disoriented Allergies: Coded Allergies: NKANo Known Allergies (Verified Allergy, Unknown, 04/16/17) Copy Copies To 1: YOSVANY HUGHES DO Discharge Summary Date of Admission May 10, 2022 at 20:59 Date of Discharge May 14, 2022 at 11:25 Discharge Date: May 14, 2022 Discharge Time: 11:25 Admission Diagnosis Septic shock Discharge Diagnosis Septic shock due to E coli UTI and bacteremia (1) E. coli UTI Status: Acute (2) E coli bacteremia Status: Acute (3) HTN (hypertension) Status: Acute Qualifiers: Qualified Codes: I10 - Essential (primary) hypertension (4) Dementia Status: Acute (5) Debility Status: Acute (6) Septic shock Status: Resolved (7) Lactic acidosis Status: Resolved (8) JOVANNY (acute kidney injury) Status: Resolved (9) On Coumadin for atrial fibrillation Status: Chronic (10) Supratherapeutic INR Status: Resolved RACHEL BOSS MD May 14, 2022 20:42
[2022-05-14] MEDS ORDERED: meTOprolol TARTRATE 25 MG (LOPRESSOR) TABLET PO SCH (21:00)
[2022-05-15] MEDS ORDERED: ASPIRIN 81 MG CHEW (CHILDREN'S ASA) PO SCH (09:00)
== END 2022-05-14 11:25 | DRG 871 ==
LOC: EDUNIT# 17:22 → ER 17:28 → ICU 20:59 → OBSVTOIN 20:59 → ICU 21:51 → 4TH 05-12 18:17
PROVIDERS: ADMIT Internal Medicine; ATTEND Internal Medicine
DX: A41.51 Sepsis due to Escherichia coli [E. coli] (principal); R65.21 Severe sepsis with septic shock; N39.0 Urinary tract infection, site not specified; E87.2 Acidosis; N17.9 Acute kidney failure, unspecified; I10 Essential (primary) hypertension; F03.90 Unspecified dementia, unspecified severity, without behavioral disturbance, psychotic disturbance, mood disturbance, and anxiety; R53.81 Other malaise; Z79.01 Long term (current) use of anticoagulants; E83.42 Hypomagnesemia; E11.9 Type 2 diabetes mellitus without complications; I25.10 Atherosclerotic heart disease of native coronary artery without angina pectoris; I48.0 Paroxysmal atrial fibrillation; R79.1 Abnormal coagulation profile; R09.02 Hypoxemia; M10.9 Gout, unspecified; E87.6 Hypokalemia; Z79.82 Long term (current) use of aspirin; Z79.899 Other long term (current) drug therapy; Z20.822 Contact with and (suspected) exposure to COVID-19; I77.9 Disorder of arteries and arterioles, unspecified; I49.5 Sick sinus syndrome
CPT/HCPCS: 36415; 51702; 70450; 71045; 74177; 80053; 81000; 82805; 82947; 83605; 83735; 84100; 84145; 84484; 85007; 85025; 85027; 85610; 85730; 87040; 87077; 87081; 87088; 87186; 87636; 94760; G0378

== ENCOUNTER 2022-08-18 09:15 | Emergency (ER) | payer MEDICARE ==
[~2022-08-18] VITALS: Ht 170 cm; Wt 58.5 kg
[~2022-08-18 09:15] MED LIST changes: +ASPI-999 PO; +CEPH125S PO; +DONE10TA41 PO; +GLIP5TAB13 PO; +LISI20TA26 PO; +MEMA10TA57 PO; +METF-397 PO; +METO-333 PO
--- NOTE | 2022-08-18 09:28 | ED General ---
General Chief Complaint: Altered Mental Status Stated Complaint: ALTERED MENTAL STATUS History of Present Illness Date Seen by Provider: Aug 18, 2022 Time Seen by Provider: 09:20 Initial Comments 87-year-old male with PMH of dementia/DM2/A. fib on Coumadin/gout/HTN, who was sent in by EMS from the alf (medical [place]), for complaints of increasing altered mental status and increasing generalized weakness. Patient is on the 12th day of quarantine for COVID positive and is supposed to come off quarantine in his alf tomorrow. 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 Patient is able to state his name and the ER but not unable to answer any other questions. Patient is slowly able to follow very simple commands such as squeezing the finger etc. Patient has not been eating or drinking much for the past couple of days. Allergies and Home Medications Allergies Coded Allergies: Jhonny Known Allergies (Verified Allergy, Unknown, 04/16/17) Patient Home Medication List Home Medication List Reviewed: Yes Aspirin (Aspirin) 81 Mg Tab.chew, 81 MG PO DAILY Prescribed by: RACHEL BOSS on 05/14/22950 Cephalexin (Cephalexin) 125 Mg/5 Ml Susp.recon, 250 MG PO TID Prescribed by: RACHEL BOSS on 05/14/22950 Donepezil HCl (Donepezil HCl) 10 Mg Tablet, 10 MG PO HS Prescribed by: RACHEL BOSS on 05/14/22950 Glipizide (Glipizide) 5 Mg Tablet, 5 MG PO 1700 Prescribed by: RACHEL BOSS on 05/14/22950 Lisinopril (Lisinopril) 20 Mg Tablet, 20 MG PO 1700 Prescribed by: RACHEL BOSS on 05/14/22950 Lovastatin (Lovastatin) 20 Mg Tablet, 20 MG PO 1700 Prescribed by: RACHEL BOSS on 05/14/22950 Memantine HCl (Memantine HCl) 10 Mg Tablet, 10 MG PO 1700 Prescribed by: RACHEL BOSS on 05/14/22950 Metformin HCl (Metformin HCl) 500 Mg Tablet, 500 MG PO 1700 Prescribed by: RACHEL BOSS on 05/14/22950 Metoprolol Tartrate (Metoprolol Tartrate) 25 Mg Tablet, 25 MG PO BID Prescribed by: RACHEL BOSS on 05/14/22950 Warfarin Sodium (Jantoven) 5 Mg Tablet, 5 MG PO CHAMBERLAIN,,,SA @1700 Prescribed by: RACHEL BOSS on 05/14/22950 Review of Systems Review of Systems Constitutional: see HPI, malaise, weakness EENTM: no symptoms reported Respiratory: no symptoms reported Cardiovascular: no symptoms reported Gastrointestinal: no symptoms reported Genitourinary: no symptoms reported Musculoskeletal: no symptoms reported Skin: no symptoms reported Psychiatric/Neurological: See HPI, Other Hematologic/Lymphatic: No Symptoms Reported Immunological/Allergic: no symptoms reported Past Qsmzzyi-Gwcfip-Rdawsi Hx Immunizations Up To Date Tetanus Booster (TDap): Unknown First/Initial COVID19 Vaccinat: 05/2021 Second COVID19 Vaccination Bronson: 05/2021 Third COVID19 Vaccination Date: 05/2021 Seasonal Allergies Seasonal Allergies: No Past Medical History Surgery/Hospitalization HX: DEMENTIA, A FIB, PACEMAKER, HYPERTENSION, TYPE II DIABETIC Surgeries: No (cardiac ablation) Pacemaker Respiratory: No Cardiac: Yes Coronary Artery Disease, Hypertension, Irregular Heartbeat Neurological: Yes Dementia Genitourinary: No Gastrointestinal: No Musculoskeletal: No Endocrine: Yes Diabetes, Non-Insulin dep Cancer: No Psychosocial: No Family Medical History No Pertinent Family Hx Physical Exam Vital Signs Vital Signs - First Documented 08/18/22 09:20 Temp 36.6 Pulse 112 Resp 20 B/P (MAP) 111/87 (95) Pulse Ox 96 O2 Delivery Room Air Capillary Refill : Height, Weight, BMI Height: 5'7.00" Weight: 155lbs. 5.0oz. 70.435472ox; 21.91 BMI Method:Stated General Appearance: No Apparent Distress, WD/WN, Chronically ill, Thin HEENT: PERRL/EOMI, Normal ENT Inspection, Other (Dry mucous membranes, cracked lips, tenting of skin present) Neck: Full Range of Motion, Normal Inspection Respiratory: Chest Non Tender, Lungs Clear, Normal Breath Sounds Cardiovascular: Regular Rate, Rhythm, No Edema Gastrointestinal: Normal Bowel Sounds, Non Tender, Soft Back: No CVA Tenderness Extremity: Normal Range of Motion Neurologic/Psychiatric: Other (Alert and oriented x1, patient is able to state his name, which is his baseline. Patient can follow simple command of squeezing fingers, but cannot follow any complex commands. Patient is nonambulatory at baseline) Skin: Other (Patient has a sacral ulcer and bilateral heel ulcers since he is always in bed and unable to ambulate) Focused Exam Lactate Level 08/18/22 09:51: Lactic Acid Level 4.33*H 08/18/22 12:00: Lactic Acid Level 2.84*H Lactic Acid Level Laboratory Tests Test 08/18/22 09:51 08/18/22 12:00 Lactic Acid Level 4.33 MMOL/L (0.50-2.00) *H 2.84 MMOL/L (0.50-2.00) *H Progress/Results/Core Measures Suspected Sepsis SIRS Temperature: Pulse: Respiratory Rate: Laboratory Tests 08/18/22 09:31: White Blood Count 13.8H Blood Pressure / Mean: 08/18/22 09:51: Lactic Acid Level 4.33*H 08/18/22 12:00: Lactic Acid Level 2.84*H Laboratory Tests 08/18/22 09:31: Creatinine 4.61H, Platelet Count 325, Total Bilirubin 0.6 Results/Orders Lab Results Laboratory Tests Test 08/18/22 09:31 08/18/22 09:51 08/18/22 11:40 08/18/22 12:00 Range/Units White Blood Count 13.8 H 4.3-11.0 10^3/uL Red Blood Count 5.05 4.30-5.52 10^6/uL Hemoglobin 15.6 13.3-17.7 g/dL Hematocrit 48 40-54 % Mean Corpuscular Volume 95 80-99 fL Mean Corpuscular Hemoglobin 31 25-34 pg Mean Corpuscular Hemoglobin Concent 33 32-36 g/dL Red Cell Distribution Width 16.9 H 10.0-14.5 % Platelet Count 325 130-400 10^3/uL Mean Platelet Volume 9.6 9.0-12.2 fL Immature Granulocyte % (Auto) 1 % Neutrophils (%) (Auto) 80 H 42-75 % Lymphocytes (%) (Auto) 10 L 12-44 % Monocytes (%) (Auto) 9 0-12 % Eosinophils (%) (Auto) 0 0-10 % Basophils (%) (Auto) 0 0-10 % Neutrophils # (Auto) 11.0 H 1.8-7.8 10^3/uL Lymphocytes # (Auto) 1.4 1.0-4.0 10^3/uL Monocytes # (Auto) 1.2 H 0.0-1.0 10^3/uL Eosinophils # (Auto) 0.0 0.0-0.3 10^3/uL Basophils # (Auto) 0.1 0.0-0.1 10^3/uL Immature Granulocyte # (Auto) 0.1 0.0-0.1 10^3/uL Sodium Level 154 H 135-145 MMOL/L Potassium Level 5.4 H 3.6-5.0 MMOL/L Chloride Level 114 H 98-107 MMOL/L Carbon Dioxide Level 12 L 21-32 MMOL/L Anion Gap 28 H 5-14 MMOL/L Blood Urea Nitrogen 64 H 7-18 MG/DL Creatinine 4.61 H 0.60-1.30 MG/DL Estimat Glomerular Filtration Rate 12 BUN/Creatinine Ratio 14 Glucose Level 159 H 70-105 MG/DL Calcium Level 10.0 8.5-10.1 MG/DL Corrected Calcium 10.3 H 8.5-10.1 MG/DL Magnesium Level 2.3 1.6-2.4 MG/DL Total Bilirubin 0.6 0.1-1.0 MG/DL Aspartate Amino Transf (AST/SGOT) 16 5-34 U/L Alanine Aminotransferase (ALT/SGPT) 19 0-55 U/L Alkaline Phosphatase 79 40-136 U/L Troponin I 0.172 H 0.138 H <0.028 NG/ML Total Protein 7.7 6.4-8.2 GM/DL Albumin 3.6 3.2-4.5 GM/DL Lipase 29 8-78 U/L Procalcitonin 0.33 H <0.10 NG/ML Lactic Acid Level 4.33 *H 2.84 *H 0.50-2.00 MMOL/L Urine Color YELLOW Urine Clarity CLEAR Urine pH 5.0 5-9 Urine Specific [place] >=1.030 1.016-1.022 Urine Protein 1+ H NEGATIVE Urine Glucose (UA) TRACE H NEGATIVE Urine Ketones TRACE H NEGATIVE Urine Nitrite POSITIVE H NEGATIVE Urine Bilirubin 3+ H NEGATIVE Urine Urobilinogen 1.0 < = 1.0 MG/DL Urine Leukocyte Esterase NEGATIVE NEGATIVE Urine RBC (Auto) NEGATIVE NEGATIVE Urine RBC 0-2 /HPF Urine WBC 0-2 /HPF Urine Squamous Epithelial Cells 0-2 /HPF Urine Crystals PRESENT H /LPF Urine Amorphous Sediment RARE KULDEEP URATES H /LPF Urine Bacteria TRACE /HPF Urine Casts PRESENT /LPF Urine Hyaline Casts 5-10 H /LPF Urine Mucus NEGATIVE /LPF Urine Culture Indicated NO My Orders Orders - ROGER VILLAFUERTE MD Ed Iv/Invasive Line Start (08/18/22 09:28) Ns Iv 1000 Ml (Sodium Chloride 0.9%) (08/18/22 09:30) Cbc With Automated Diff (08/18/22 09:28) Comprehensive Metabolic Panel (08/18/22:28) Lactic Acid Analyzer (08/18/22:28) Lipase (08/18/22:28) Magnesium (08/18/22 09:28) Procalcitonin (Pct) (08/18/22 09:28) Ua Culture If Indicated (08/18/22 09:28) Troponin I [place] (08/18/22 09:28) Chest 1 View, Ap/Pa Only (08/18/22 09:29) Ekg Tracing (08/18/22 09:29) Continuous Ekg Monitoring (08/18/22 09:29) Ct Head Wo (08/18/22 09:46) Straight Cath (Urinary) (08/18/22 09:46) Blood Culture (08/18/22 10:18) Ed Iv/Invasive Line Start (08/18/22 10:18) Ed Iv/Invasive Line Start (08/18/22 10:18) Vital Signs Adult Sepsis Patie Q15M (08/18/22 10:18) O2 (08/18/22 10:18) Remove Rings In Anticipation O (08/18/22 10:18) Cefepime Injection (Maxipime Injection) (08/18/22 10:30) Ed Iv/Invasive Line Start (08/18/22 10:20) Ns Iv 1000 Ml (Sodium Chloride 0.9%) (08/18/22 10:30) Catheter(Urinary) Insert & Ass 03,15 (08/18/22 10:40) Lidocaine 2% (Urojet) (Xylocaine Urojet) (08/18/22 10:45) Troponin I [place] (08/18/22 11:25) Ekg Tracing (08/18/22 11:25) Straight Cath (Urinary) (08/18/22 11:52) Medications Given in ED Current Medications Medications Dose Ordered Sig/Renny Route Start Time Stop Time Status Last Admin Dose Admin Cefepime HCl 1000 mg/Sodium Chloride 50 ml @ 100 mls/hr ONCE ONCE IV 08/18/22 10:30 08/18/22 10:59 DC 08/18/22 11:29 100 MLS/HR Lidocaine HCl 10 ml ONCE ONCE TOP 08/18/22 10:45 08/18/22 10:46 DC 08/18/22 11:30 10 ML Vital Signs/I&O 08/18/22 09:20 Temp 36.6 Pulse 112 Resp 20 B/P (MAP) 111/87 (95) Pulse Ox 96 O2 Delivery Room Air Capillary Refill : Progress Note : Progress Note 1. AMS & GENERALIZED WEAKNESS: - CT HEAD: no acute findings - CXR: normal - see below 2. UROSEPSIS & DEHYDRATION: - WBC is 13.8 with a left shift - Lactic acid is 4.33 and with fluids improved to 2.84 although still high - Procalcitonin is 0.33 - UA is positive for nitrates, bacteria and WBC -Cefepime 1 g IV stat with NS IVF bolus - Pt on Day 12 since since being diagnosed with COVID 3. ELEVATED TROPONIN: - Troponin x2 is 0.172, 0.138 - EKG x2: Nonischemic - Likely due to demand ischemia and CKD and chronic illness 4. ELECTROLYTE DISTURBANCES: HYPERNATREMIA & HYPERKALEMIA: - s. Na is 154, and s. K is 5.4 5. CODE STATUS:- DNR/ DNI - DIscussed pt with granddaughter who is the proxy and she wants pt to be DNR/DNI, and wants palliative/ hospice care in the alf for her grandfather. - Social work consult Diagnostic Imaging Diagonstic Imaging: Xray, CT Plain Films/CT/US/NM/MRI: chest, head Comments [facility]. [place], [place] NAME: ELEUTERIODAWIT L MED REC#: [id number] PT STATUS: REG ER : 1935 PHYSICIAN: ROGER VILLAFUERTE MD ADMIT DATE: 08/18/22/ER Draft Date of Exam:08/18/22 CT HEAD WO PROCEDURE: CT head without contrast. TECHNIQUE: Multiple contiguous axial images were obtained through the brain without the use of intravenous contrast. Auto Exposure Controls were utilized during the CT exam to meet ALARA standards for radiation dose reduction. DATE: August 18, 2022. COMPARISON: CT head May 10, 2022. MRI brain May 20192013. INDICATION: 87-year-old male, altered mental status. FINDINGS: There is proportional prominence of the ventricles and additional CSF spaces consistent with moderate to severe cerebral volume loss. There is no mass effect or midline shift. There is no acute intracranial hemorrhage. There is no abnormal extra-axial fluid collection. The visualized portions of the paranasal sinuses, mastoid air cells and middle ears are well aerated. IMPRESSION: 1. No identified acute intracranial abnormality. 2. Moderate to severe cerebral volume loss. Dictated on workstation # [id number] Dict: 08/18/22 1052 Trans: 08/18/22 1106 ELVIA [id number] Interpreted by: CHARLEEN MOULTON MD Electronically signed by: [facility], [place] NAME: DAWIT MCCLELLAN [facility] REC#: [id number] PT STATUS: REG ER : 1935 PHYSICIAN: ROGER VILLAFUERTE MD ADMIT DATE: 08/18/22/ER Draft Date of Exam:08/18/22 CHEST 1 VIEW, AP/PA ONLY INDICATION: Altered mental status. TECHNIQUE: Portable AP view of chest is obtained with comparison made to study of 05/12/2022. FINDINGS: Heart size and pulmonary vascularity remain within normal limits. There is no pneumothorax or consolidation. Left anterior chest wall dual-chamber cardiac pacemaker is in stable position. Overall, there has been no adverse change. IMPRESSION: Stable chest without acute abnormality. Dictated on workstation # [id number] Dict: 08/18/22 1047 Trans: 08/18/22 1051 [id number] Interpreted by: MARY LIZ MD Electronically signed by: Departure Impression Primary Impression: AMS (altered mental status) Qualified Codes: R41.82 - Altered mental status, unspecified Additional Impressions: Generalized weakness Sepsis due to urinary tract infection Electrolyte disturbance Demand ischemia Kidney failure Disposition: 03 XF SNF Condition: Stable/Unchanged Departure-Patient Inst. Referrals: CHRISTIAN RUIZ DO (PCP/Family) Primary Care Physician Patient Instructions: Altered Mental Status, Generalized Weakness (DC), Sepsis, Adult (DC), Heart Attack, Kidney Failure Add. Discharge Instructions: - Hospice care arranged for alf -Cefpodoxime 200 mg twice daily for 7 days All discharge instructions reviewed with patient and/or family. Voiced understanding. Scripts Cefpodoxime Proxetil (Cefpodoxime Proxetil) 100 Mg Tablet 100 MG PO BID for 7 Days, #14 TAB Prov: ROGER VILLAFUERTE MD 08/18/22 ROGER VILLAFUERTE MD Aug 18, 2022 09:27
[2022-08-18] MEDS ORDERED: NS IV 1000 ML 1,000 ML IV SCH ×2 (09:30→10:30)
[2022-08-18 09:37] LABS: BASOPHILS # (AUTO) 0.1 10^3/uL (0.0-0.1); BASOPHILS % (AUTO) 0 % (0-10); EOSINOPHILS % (AUTO) 0 % (0-10); HEMATOCRIT 48 % (40-54); HEMOGLOBIN 15.6 g/dL (13.3-17.7); LYMPHOCYTES # (AUTO) 1.4 10^3/uL (1.0-4.0); LYMPHOCYTES % (AUTO) 10 % (12-44); MEAN CORPUSCULAR HEMOGLOBIN 31 pg (25-34); MEAN CORPUSCULAR HGB CONC 33 g/dL (32-36); MEAN CORPUSCULAR VOLUME 95 fL (80-99); MEAN PLATELET VOLUME 9.6 fL (9.0-12.2); MONOCYTES # (AUTO) 1.2 10^3/uL (0.0-1.0); MONOCYTES % (AUTO) 9 % (0-12); NEUTROPHILS % (AUTO) 80 % (42-75); PLATELET COUNT 325 10^3/uL (130-400); WHITE BLOOD COUNT 13.8 10^3/uL (4.3-11.0)
[2022-08-18 09:45] LABS: ALBUMIN 3.6 GM/DL (3.2-4.5)
[2022-08-18 09:46] LABS: POTASSIUM 5.4 MMOL/L (3.6-5.0)
[2022-08-18 09:48] LABS: TOTAL PROTEIN 7.7 GM/DL (6.4-8.2)
[2022-08-18 09:50] LABS: BILIRUBIN,TOTAL 0.6 MG/DL (0.1-1.0)
[2022-08-18 09:52] LABS: CREATININE SERUM 4.61 MG/DL (0.60-1.30)
[2022-08-18 09:54] LABS: MAGNESIUM 2.3 MG/DL (1.6-2.4)
[2022-08-18] MEDS ORDERED: CEFEPIME INJECTION 1,000 MG in NS (IVPB) 50 ML IV ONE (10:30)
[2022-08-18] MEDS ORDERED: LIDOCAINE UROJET 2% GEL 10 ML PKG TOP ONE (10:45)
--- NOTE | 2022-08-18 10:52 | Diagnostic Imaging Report ---
INDICATION: Altered mental status. TECHNIQUE: Portable AP view of chest is obtained with comparison made to study of 05/12/2022. FINDINGS: Heart size and pulmonary vascularity remain within normal limits. There is no pneumothorax or consolidation. Left anterior chest wall dual-chamber cardiac pacemaker is in stable position. Overall, there has been no adverse change. IMPRESSION: Stable chest without acute abnormality. Dictated by: Dictated on workstation # [id number]
--- NOTE | 2022-08-18 11:06 | Diagnostic Imaging Report ---
PROCEDURE: CT head without contrast. TECHNIQUE: Multiple contiguous axial images were obtained through the brain without the use of intravenous contrast. Auto Exposure Controls were utilized during the CT exam to meet ALARA standards for radiation dose reduction. DATE: August 18, 2022. COMPARISON: CT head May 10, 2022. MRI brain May 20192013. INDICATION: 87-year-old male, altered mental status. FINDINGS: There is proportional prominence of the ventricles and additional CSF spaces consistent with moderate to severe cerebral volume loss. There is no mass effect or midline shift. There is no acute intracranial hemorrhage. There is no abnormal extra-axial fluid collection. The visualized portions of the paranasal sinuses, mastoid air cells and middle ears are well aerated. IMPRESSION: 1. No identified acute intracranial abnormality. 2. Moderate to severe cerebral volume loss. Dictated by: Dictated on workstation # [id number]
[2022-08-18 11:52] LABS: CLARITY,URINE CLEAR; COLOR,URINE YELLOW; GLUCOSE, URINE (UA) TRACE (NEGATIVE); KETONES,URINE TRACE (NEGATIVE); LEUKOCYTE ESTERASE ,URINE NEGATIVE (NEGATIVE); NITRITE,URINE POSITIVE (NEGATIVE); PROTEIN,URINE 1+ (NEGATIVE)
[2022-08-18 12:13] LABS: BACTERIA,URINE TRACE /HPF; BILIRUBIN,URINE 3+ (NEGATIVE); RBC,URINE 0-2 /HPF; SQUAMOUS EPITHELIAL CELL,UR 0-2 /HPF; WBC,URINE 0-2 /HPF
[2022-08-18 12:14] LABS: AMORPHOUS SEDIMENT,UR RARE AMOR URATES /LPF
[2022-08-18] MEDS ORDERED: CEFP100T2 PO (15:49)
[2022-08-18 16:50] VITALS: BP 114/85
== END 2022-08-18 16:55 ==
LOC: EDUNIT# 09:15 → ER 09:16
DX: A41.9 Sepsis, unspecified organism (principal); N39.0 Urinary tract infection, site not specified; E87.8 Other disorders of electrolyte and fluid balance, not elsewhere classified; I24.8 Other forms of acute ischemic heart disease; I12.9 Hypertensive chronic kidney disease with stage 1 through stage 4 chronic kidney disease, or unspecified chronic kidney disease; N18.9 Chronic kidney disease, unspecified; E11.22 Type 2 diabetes mellitus with diabetic chronic kidney disease; I48.91 Unspecified atrial fibrillation; Z79.01 Long term (current) use of anticoagulants; Z86.16 Personal history of COVID-19
CPT/HCPCS: 36415; 70450; 71045; 80053; 81000; 83605; 83690; 83735; 84145; 84484; 85025; 87040; 93005